=== PATIENT | female | born 1955 | race Caucasian/White ===

== ENCOUNTER 2018-12-10 12:39 | Inpatient (IN) | payer OTHER ==
[2018-12-09] MEDS: ALBUTEROL SULFATE 2.5 MG/3 ML NEBU. NEB SCH (21:00)
[~2018-12-10] VITALS: Ht 154.9 cm; Wt 140.6 kg
[2018-12-10 13:39] LABS: BASO # 0.1 x10^3/uL (0.0-0.2); BASO % 1 % (0-3); EOS # 0.3 x10^3/uL (0.0-0.7); EOS % 5 % (0-3); HEMATOCRIT 34.3 % (36.0-47.0); HEMOGLOBIN 10.8 g/dL (12.0-15.5); LYMPH # 2.6 x10^3/uL (1.0-4.8); LYMPH % 34 % (24-48); MEAN CORPUSCULAR HEMOGLOBIN 26 pg (25-35); MEAN CORPUSCULAR HGB CONC 32 g/dL (31-37); MEAN CORPUSCULAR VOLUME 81 fL (79-100); MONO % 13 % (0-9); NEUT # 3.7 x10^3uL (1.8-7.7); NEUT % 48 % (31-73); PLATELET COUNT 544 x10^3/uL (140-400); RED BLOOD COUNT 4.24 x10^6/uL (3.50-5.40); RED CELL DISTRIBUTION WIDTH 17.2 % (11.5-14.5); WHITE BLOOD COUNT 7.7 x10^3/uL (4.0-11.0)
[2018-12-10 13:55] LABS: ALBUMIN 3.4 g/dL (3.4-5.0); ALBUMIN/GLOBULIN RATIO 0.8 (1.0-1.7); CREATININE 1.8 mg/dL (0.6-1.0); GFR 28.4; MAGNESIUM 1.6 mg/dL (1.8-2.4); POTASSIUM 4.3 mmol/L (3.5-5.1); TOTAL BILIRUBIN 0.3 mg/dL (0.2-1.0); TOTAL PROTEIN 7.5 g/dL (6.4-8.2)
[2018-12-10 13:59] LABS: BILIRUBIN,URINE NEG (NEG); CLARITY,URINE HAZY; COLOR,URINE YELLOW; GLUCOSE,URINE NEG (NEG); NITRITE,URINE NEG (NEG); RBC,URINE 0 /HPF (0-2); UROBILINOGEN,URINE 0.2 mg/dL (0.2 mg/dL); WBC,URINE RARE /HPF (0-4)
[2018-12-10 14:00] LABS: BACTERIA,URINE 0 /HPF (0-FEW); SQUAMOUS EPITHELIAL CELL,UR MANY /LPF
[2018-12-10 14:01] LABS: HYALINE CASTS, URINE FEW /HPF
--- NOTE | 2018-12-10 14:21 | EKG ---
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
[2018-12-10] MEDS ORDERED: MAGNESIUM OXIDE 400 MG TABLET PO ONE (14:30)
--- NOTE | 2018-12-10 14:36 | PHYS DOC ---
Past History Past Medical History: A-Fib, Anxiety, CHF, COPD, Coagulopathy, Depression, DVT , GERD, Liver Disease, Pneumonia, Renal Failure, Other Past Surgical History: Appendectomy, Cholecystectomy, Tonsillectomy Alcohol Use: None Drug Use: None Adult General Chief Complaint Chief Complaint: PSYCH EVALUATION HPI HPI Patient is a 63 year old female with history of COPD on 4 L of home oxygen who brought in from her shelter in [place] for medical clearance for psychiatric admission. skilled nursing reported patient had behavior problem. Patient is alert and oriented and states she doesn't know why she is here. She states that she became anxious and slapped her face. Patient denies suicidal and homicidal ideation and hallucination. Review of Systems Review of Systems Constitutional: Denies fever or chills [] Eyes: Denies change in visual acuity, redness, or eye pain [] HENT: Denies nasal congestion or sore throat [] Respiratory: Chronic cough and shortness of breath on home oxygen Cardiovascular: No additional information not addressed in HPI [] GI: Denies abdominal pain, nausea, vomiting, bloody stools or diarrhea [] : Denies dysuria or hematuria [] Musculoskeletal: Denies back pain or joint pain [] Integument: Denies rash or skin lesions [] Neurologic: Denies headache, focal weakness or sensory changes [] Endocrine: Denies polyuria or polydipsia [] All other systems were reviewed and found to be within normal limits, except as documented in this note. Current Medications Current Medications Current Medications Medications (Trade) Dose Ordered Sig/[facility] Start Time Stop Time Status Last Admin Dose Admin Magnesium Oxide (Magnesium Oxide) 400 mg 1X ONCE 12/10/18 14:15 12/10/18 14:16 UNV Allergies Allergies Allergies Coded Allergies Type Severity Reaction Last Updated Verified Latex, Natural Rubber Allergy Unknown 12/10/18 Yes Tetanus Vaccines and Toxoid Allergy Unknown 12/10/18 Yes acetaminophen Allergy Unknown 12/10/18 Yes bee pollen Allergy Unknown 12/10/18 Yes cat dander Allergy Unknown 12/10/18 Yes cisapride Allergy Unknown 12/10/18 Yes ezetimibe Allergy Unknown 12/10/18 Yes fluconazole Allergy Unknown 12/10/18 Yes lidocaine Allergy Unknown 12/10/18 Yes pravastatin Allergy Unknown 12/10/18 Yes propoxyphene Allergy Unknown 12/10/18 Yes rosuvastatin Allergy Unknown 12/10/18 Yes simvastatin Allergy Unknown 12/10/18 Yes Physical Exam Physical Exam Constitutional: Well developed, well nourished, no acute distress, non-toxic appearance, morbidly obese. [] HENT: Normocephalic, atraumatic. Eyes: PERRLA, EOMI, conjunctiva normal, no discharge. [] Neck: Normal range of motion, no tenderness, supple, no stridor. [] Cardiovascular:Heart rate regular rhythm, no murmur [] Lungs & Thorax: Decrease of bilateral air movement and mild rhonchi Abdomen: Bowel sounds normal, soft, no tenderness, no masses, no pulsatile masses. [] Skin: Warm, dry, no erythema, no rash. [] Back: No tenderness, no CVA tenderness. [] Extremities: No tenderness, no cyanosis, no clubbing, ROM intact, bilateral lower extremity 2+ edema. [] Neurologic: Alert and oriented X 3, normal motor function, normal sensory function, no focal deficits noted. [] Psychologic: Affect normal, judgement normal, mood normal. [] Current Patient Data Vital Signs Vital Signs Date Time Temp Pulse Resp B/P (MAP) Pulse Ox O2 Delivery O2 Flow Rate FiO2 12/10/18 13:03 97.9 94 16 96 Room Air 5.0 Lab Results Laboratory Tests Test 12/10/18 13:27 12/10/18 13:35 White Blood Count 7.7 x10^3/uL (4.0-11.0) Red Blood Count 4.24 x10^6/uL (3.50-5.40) Hemoglobin 10.8 g/dL (12.0-15.5) L Hematocrit 34.3 % (36.0-47.0) L Mean Corpuscular Volume 81 fL (79-100) Mean Corpuscular Hemoglobin 26 pg (25-35) Mean Corpuscular Hemoglobin Concent 32 g/dL (31-37) Red Cell Distribution Width 17.2 % (11.5-14.5) H Platelet Count 544 x10^3/uL (140-400) H Neutrophils (%) (Auto) 48 % (31-73) Lymphocytes (%) (Auto) 34 % (24-48) Monocytes (%) (Auto) 13 % (0-9) H Eosinophils (%) (Auto) 5 % (0-3) H Basophils (%) (Auto) 1 % (0-3) Neutrophils # (Auto) 3.7 x10^3uL (1.8-7.7) Lymphocytes # (Auto) 2.6 x10^3/uL (1.0-4.8) Monocytes # (Auto) 1.0 x10^3/uL (0.0-1.1) Eosinophils # (Auto) 0.3 x10^3/uL (0.0-0.7) Basophils # (Auto) 0.1 x10^3/uL (0.0-0.2) Sodium Level 140 mmol/L (136-145) Potassium Level 4.3 mmol/L (3.5-5.1) Chloride Level 97 mmol/L (98-107) L Carbon Dioxide Level 36 mmol/L (21-32) H Anion Gap 7 (6-14) Blood Urea Nitrogen 28 mg/dL (7-20) H Creatinine 1.8 mg/dL (0.6-1.0) H Estimated GFR (Cockcroft-Gault) 28.4 BUN/Creatinine Ratio 16 (6-20) Glucose Level 188 mg/dL (70-99) H Calcium Level 10.0 mg/dL (8.5-10.1) Magnesium Level 1.6 mg/dL (1.8-2.4) L Total Bilirubin 0.3 mg/dL (0.2-1.0) Aspartate Amino Transferase (AST) 15 U/L (15-37) Alanine Aminotransferase (ALT) 18 U/L (14-59) Alkaline Phosphatase 71 U/L (46-116) Total Protein 7.5 g/dL (6.4-8.2) Albumin 3.4 g/dL (3.4-5.0) Albumin/Globulin Ratio 0.8 (1.0-1.7) L Urine Collection Type U cath Urine Color Yellow Urine Clarity Hazy Urine pH 5.0 Urine Specific [place] 1.020 Urine Protein Neg (NEG-TRACE) Urine Glucose (UA) Neg mg/dL (NEG) Urine Ketones (Stick) Trace mg/dL (NEG) Urine Blood Neg (NEG) Urine Nitrite Neg (NEG) Urine Bilirubin Neg (NEG) Urine Urobilinogen Dipstick 0.2 mg/dL (0.2 mg/dL) Urine Leukocyte Esterase Neg (NEG) Urine RBC 0 /HPF (0-2) Urine WBC Rare /HPF (0-4) Urine Squamous Epithelial Cells Many /LPF Urine Transitional Epithelial Cells Occ /LPF Urine Bacteria 0 /HPF (0-FEW) Urine Hyaline Casts Few /HPF EKG EKG EKG interpreted by me. EKG at 1320 showed normal sinus rhythm at rate of 93, left atrial abnormality, poor R-wave progress in anteroseptal leads, no acute ST and T-wave abnormalities. Radiology/Procedures Radiology/Procedures [] Course & Med Decision Making Course & Med Decision Making Pertinent Labs reviewed. (See chart for details) Evaluation of patient in ER showed 63-year-old female patient on 4 L of oxygen brought in for medical clearance for psychiatric admission. Patient had bilateral lower extremity edema without taking fluids. Patient had magnesium of 1.6 and treated with oral magnesium in ER. Patient also had mild elevation of BUN/creatinine with history of chronic renal failure. Patient had hemoglobin of 10.8 without previous labs to compare. Patient was medically cleared for psychiatric admission. Dragon Disclaimer Dragon Disclaimer This electronic medical record was generated, in whole or in part, using a voice recognition dictation system. Departure Departure: Impression: Primary Impression: Medical clearance for psychiatric admission Additional Impressions: Hypomagnesemia Renal insufficiency Anemia Morbid obesity Behavioral problem Disposition: 09 ADMITTED INPATIENT (at 1411 to senior behavioral unit) Condition: STABLE Referrals: JAGUAR ETIENNE MD (PCP) Problem Qualifiers Additional Impressions: Anemia Anemia type: unspecified type Qualified Codes: D64.9 - Anemia, unspecified ABILIO LAMAR MD Dec 10, 2018 14:36
--- NOTE | 2018-12-10 15:07 | NUR ---
Admission Note with Justification for Admission to [facility] Patient admitted to [facility] for protective oversight for emergency stabilization of acute psychiatric crisis. Pt admitted from: [facility] Mode of arrival: EMS Accompanied By: EMS Precipitating behaviors that initiated intake and admission: Paranoid-thinking people are stealing from her, paranoid about her medications, labile mood-angry, tearful, yelling and cursing at staff, self harming- hitting herself out of frustration. Description of failure of out patient attempts at stabilization in previous setting list behavior and medication trials: Attempts were made at therapy/counseling, BuSpar, Cymbalta Behaviors and assessment findings upon admission: Pt is needy and if things are not done her way pt gets upset, refuses to do the simplest of tasks for herself, complained of pain but reported that tramadol which was on her MAR was not effective, and requested Hydrocodone 7.5mg. Dr. Diaz called and order for Oxycodone 5mg q 4 hours obtained. Pt untidy, irritable, complaining, self-persecuting. Blames everyone at facility for her behaviors. Lungs sounds coarse and ronchi, BLLE 4+, Chest x-ray ordered. Plan: Admit for protective oversight for adjustment and stabilization of medications, behaviors and mood. Intense treatment regimen including groups, medication adjustments, therapy, consistent regimen for ADL's, self care, and sleep hygiene. Daily monitoring by Inpatient staff, Psychiatry, and Medical Physician.
[2018-12-10] MEDS ORDERED: ALBU2.5V5 NEB (15:52)
--- NOTE | 2018-12-10 16:06 | NUR ---
On 12/09/18, 11:56am, call placed to Ingrid at [employer] who confirmed that Lisa has in patient psychiatric benefits. Pre-authorization is required after Lisa admits to [facility] and is completed by calling [phone]. Call reference number is [id number].
[2018-12-10] MEDS ORDERED: GABA600T7 PO (16:49)
[2018-12-10] MEDS ORDERED: LOSA100T2 PO (16:49)
[2018-12-10] MEDS ORDERED: BUSP15TA PO (16:49)
[2018-12-10] MEDS ORDERED: INSU100V13 SQ (16:49)
[2018-12-10] MEDS ORDERED: CARV25TA PO (16:49)
[2018-12-10] MEDS ORDERED: DICL100G18 TP (16:49)
[2018-12-10] MEDS ORDERED: ROPI6TAB PO (16:49)
[2018-12-10] MEDS ORDERED: PANT40TA3 PO (16:49)
[2018-12-10] MEDS ORDERED: MILN50TA PO (16:49)
[2018-12-10] MEDS ORDERED: ONDA4TAB7 PO (16:49)
[2018-12-10] MEDS ORDERED: APIX5TAB5 PO (16:49)
[2018-12-10] MEDS ORDERED: CHOL100013 PO (16:49)
[2018-12-10] MEDS ORDERED: MULT-250 PO (16:49)
[2018-12-10] MEDS ORDERED: CLON0.1T PO (16:49)
[2018-12-10] MEDS ORDERED: NITR0.4T22 SL (16:49)
[2018-12-10] MEDS ORDERED: TRAM50TA PO (16:49)
[2018-12-10] MEDS ORDERED: GUAI-108 PO (16:49)
[2018-12-10] MEDS ORDERED: IPRA0.2S5 IH (16:49)
[2018-12-10] MEDS ORDERED: POLY17PO5 PO (16:49)
[2018-12-10] MEDS ORDERED: XOPENEX1.25 MG/3 IH (16:49)
[2018-12-10] MEDS ORDERED: FURO80TA72 PO (16:49)
[2018-12-10] MEDS ORDERED: DILT300T7 PO (16:49)
[2018-12-10] MEDS ORDERED: UMEC1DIS IH (16:49)
[2018-12-10] MEDS ORDERED: HYDR-2869 PO (16:49)
[2018-12-10] MEDS ORDERED: INSU100V31 SQ (16:49)
[2018-12-10] MEDS ORDERED: DULO30CA2 PO (16:49)
[2018-12-10] MEDS ORDERED: MAGNESIUM HYDROXIDE 2,400 MG/30 ML ORAL.SUSP. PO PRN (17:00)
[2018-12-10] MEDS ORDERED: NON FORMULARY ITEM (Levalbuterol Hcl (Xopenex) 1.25 MG) IH SCH (17:00)
[2018-12-10] MEDS ORDERED: IPRATROPIUM BROMIDE 0.5 MG/2.5 ML NEBU. IH SCH (17:00)
[2018-12-10] MEDS ORDERED: NON FORMULARY ITEM (Umeclidinium Brm/Vilanterol Tr (Anoro Ellipta 62.5-25 Mcg Inh) 1 EACH) IH SCH (17:00)
[2018-12-10] MEDS ORDERED: NITROGLYCERIN SUBLINGUAL 0.4 MG BOTTLE OF 25. SL PRN (17:00)
[2018-12-10] MEDS ORDERED: MAG HYDROX/AL HYDROX/SIMETH 30 ML ORAL.SUSP PO PRN (17:00)
[2018-12-10] MEDS ORDERED: ALBUTEROL SULFATE 2.5 MG/3 ML NEBU. NEB PRN (17:00)
[2018-12-10] MEDS: oxyCODONE IR 5 MG TABLET PO PRN (17:02)
--- NOTE | 2018-12-10 17:06 | RAD ---
Portable chest, 12/10/2018: HISTORY: Chest pain, shortness of breath No previous chest radiographs are available at this time for comparison purposes. There has been a previous median sternotomy. The heart is at the upper limits of normal in size. There is calcific plaquing the aorta. There are patchy and streaky parenchymal opacities in both lung bases on the lateral aspects of the mid chest bilaterally. The pattern suggests patchy pneumonitis and/or atelectasis. A component of scarring cannot be excluded on this single exam. No pleural fluid is seen. There is no evidence of pneumothorax. IMPRESSION: Mild patchy bilateral atelectasis/infiltrate. Electronically signed by: Heladio Valdovinos MD (12/10/2018 5:03 PM) [facility]
[2018-12-10] MEDS ORDERED: ONDANSETRON ODT 4 MG TAB.RAPDIS PO PRN (17:30)
--- NOTE | 2018-12-10 18:17 | NUR ---
Nursing Note: Chest X-Ray results received. Dr. Diaz informed, no orders received.
[2018-12-10] MEDS: CARVEDILOL 12.5 MG TABLET PO SCH (18:25)
[2018-12-10] MEDS: IPRATROPIUM BROMIDE 0.5 MG/2.5 ML NEBU. NEB SCH ×2 (20:00→21:00)
[2018-12-10] MEDS: ALBUTEROL SULFATE 2.5 MG/3 ML NEBU. NEB SCH (20:10)
--- NOTE | 2018-12-10 20:50 | NUR ---
Behavior Intervention Response and Plan: BIRP Note: Behavior: Assumed Care of patient, patient located in Day Room at shift change. Patient exhibited the following behavior Interactive, Attention Seeking, Anxious. Brief assessment on rounds of vital signs, medication needs, lab studies, and pain. Treatment plan problems . Intervention: Patient assessed and the following interventions initiated safety checks 15 Minute Checks Cognitive Assessment , Head to toe Assessment , Medications. Response: After interactions and interventions patient responded in the following manner, Interactive , Attention Seeking ,Anxious. Continue to assess behaviors and condition will continue to monitor throughout the shift as needed. Patient educated on ADL's, and hand hygiene. 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 Continue to assess patient for changes in above assessment. Monitor for medication needs, pain, and safety concerns. Hourly rounding performed to ensure safe environment.
[2018-12-10] MEDS: guaiFENesin DM 600/30MG 1 TAB TAB.ER.12H PO SCH (20:57)
[2018-12-10] MEDS: GABAPENTIN 300 MG CAPSULE. PO SCH (20:57)
[2018-12-10] MEDS: CHOLECALCIFEROL (VITAMIN D3) 1,000 UNIT TABLET PO SCH (20:57)
[2018-12-10] MEDS: busPIRone 15 MG TABLET. PO SCH (20:57)
[2018-12-10] MEDS: DICLOFENAC SODIUM 1% TOPICAL GEL 100GM TUBE. TP SCH (20:58)
[2018-12-10] MEDS: MILNACIPRAN 50 MG TABLET PO SCH (21:00)
[2018-12-10] MEDS: cloNIDine HCL 0.1 MG TABLET PO SCH (21:03)
[2018-12-10] MEDS: INSULIN GLARGINE 300 UNITS/3 ML INSULN.PEN. SQ SCH (21:03)
[2018-12-10] MEDS: BUDESONIDE 0.5 MG/2 ML NEBU NEB SCH (22:04)
--- NOTE | 2018-12-10 23:04 | PDOC ---
Exam Note: [place] Note: Please also refer to the separate dictated note~for this date of service dictated separately. Discussed the patient with Nursing staff reviewed the chart.~Reviewed interim history and current functioning. Reviewed vital signs,~ Labs/ Radiology~and current medications noted below. Continue current treatment with the changes noted in the dictated addendum note Assessment: Vital Signs: Vital Signs Date Time Temp Pulse Resp B/P (MAP) Pulse Ox O2 Delivery O2 Flow Rate FiO2 12/10/18 22:07 93 Nasal Cannula 2.0 12/10/18 21:08 93 150/81 12/10/18 17:02 18 12/10/18 13:03 97.9 Labs: Laboratory Tests Test 12/10/18 13:27 12/10/18 13:35 12/10/18 16:55 12/10/18 19:39 White Blood Count 7.7 x10^3/uL (4.0-11.0) Red Blood Count 4.24 x10^6/uL (3.50-5.40) Hemoglobin 10.8 g/dL (12.0-15.5) L Hematocrit 34.3 % (36.0-47.0) L Mean Corpuscular Volume 81 fL (79-100) Mean Corpuscular Hemoglobin 26 pg (25-35) Mean Corpuscular Hemoglobin Concent 32 g/dL (31-37) Red Cell Distribution Width 17.2 % (11.5-14.5) H Platelet Count 544 x10^3/uL (140-400) H Neutrophils (%) (Auto) 48 % (31-73) Lymphocytes (%) (Auto) 34 % (24-48) Monocytes (%) (Auto) 13 % (0-9) H Eosinophils (%) (Auto) 5 % (0-3) H Basophils (%) (Auto) 1 % (0-3) Neutrophils # (Auto) 3.7 x10^3uL (1.8-7.7) Lymphocytes # (Auto) 2.6 x10^3/uL (1.0-4.8) Monocytes # (Auto) 1.0 x10^3/uL (0.0-1.1) Eosinophils # (Auto) 0.3 x10^3/uL (0.0-0.7) Basophils # (Auto) 0.1 x10^3/uL (0.0-0.2) Sodium Level 140 mmol/L (136-145) Potassium Level 4.3 mmol/L (3.5-5.1) Chloride Level 97 mmol/L (98-107) L Carbon Dioxide Level 36 mmol/L (21-32) H Anion Gap 7 (6-14) Blood Urea Nitrogen 28 mg/dL (7-20) H Creatinine 1.8 mg/dL (0.6-1.0) H Estimated GFR (Cockcroft-Gault) 28.4 BUN/Creatinine Ratio 16 (6-20) Glucose Level 188 mg/dL (70-99) H Calcium Level 10.0 mg/dL (8.5-10.1) Magnesium Level 1.6 mg/dL (1.8-2.4) L Total Bilirubin 0.3 mg/dL (0.2-1.0) Aspartate Amino Transferase (AST) 15 U/L (15-37) Alanine Aminotransferase (ALT) 18 U/L (14-59) Alkaline Phosphatase 71 U/L (46-116) Total Protein 7.5 g/dL (6.4-8.2) Albumin 3.4 g/dL (3.4-5.0) Albumin/Globulin Ratio 0.8 (1.0-1.7) L Urine Collection Type U cath Urine Color Yellow Urine Clarity Hazy Urine pH 5.0 Urine Specific [place] 1.020 Urine Protein Neg (NEG-TRACE) Urine Glucose (UA) Neg mg/dL (NEG) Urine Ketones (Stick) Trace mg/dL (NEG) Urine Blood Neg (NEG) Urine Nitrite Neg (NEG) Urine Bilirubin Neg (NEG) Urine Urobilinogen Dipstick 0.2 mg/dL (0.2 mg/dL) Urine Leukocyte Esterase Neg (NEG) Urine RBC 0 /HPF (0-2) Urine WBC Rare /HPF (0-4) Urine Squamous Epithelial Cells Many /LPF Urine Transitional Epithelial Cells Occ /LPF Urine Bacteria 0 /HPF (0-FEW) Urine Hyaline Casts Few /HPF Glucose (Fingerstick) 163 mg/dL (70-99) H 229 mg/dL (70-99) H Current Medications: Meds: Current Medications Magnesium Oxide (Magnesium Oxide) 400 mg 1X ONCE PO Last administered on at 14:22; Start 12/10/18 at 14:30; Stop 12/10/18 at 14:32; Status DC Oxycodone HCl (Roxicodone) 5 mg PRN Q4HRS PRN PO PAIN Last administered on 12/10at 17:02; Start 12/10/18 at 16:30 Albuterol Sulfate (Ventolin) 2.5 mg PRN Q2HR PRN NEB SHORTNESS OF BREATH; Start 12/10/18 at 17:00 Clonidine HCl (Catapres) 0.1 mg BID PO Last administered on 12/10/18at 21:03; Start 12/10/18 at 21:00 Diclofenac Sodium (Voltaren) 100 popeye TID TP ; Start 12/10/18 at 21:00 Guaifenesin (MUCINEX ER with DM) 1 tab BID PO Last administered on 12/10/18at 20 :57; Start 12/10/18 at 21:00 Ipratropium [place] (Atrovent) 0.2 mg [id number] IH ; Start 12/10/18 at 17:00; Stop 12/10/18 at 17:29; Status DC Milnacipran HCl (Savella) 100 mg BID PO ; Start 12/10/18 at 21:00 Nitroglycerin (Nitrostat) 0.4 mg PRN Q5MIN PRN SL CHEST PAIN; Start 12/10/18 at 17:00 Tramadol HCl (Ultram) 50 mg PRN Q6HRS PRN PO PAIN; Start 12/10/18 at 17:00 Buspirone HCl (Buspar) 15 mg BID PO Last administered on 12/10/18at 20:57; Start 12/10/18 at 21:00 Carvedilol (Coreg) 12.5 mg BIDWMEALS PO Last administered on 12/10/18at 18:25; Start 12/10/18 at 17:00 Vitamin D (Vitamin D3) 1,000 unit BID PO Last administered on 12/10/18at 20:57; Start 12/10/18 at 21:00 Diltiazem HCl (Diltiazem 24hr Cd) 300 mg DAILY PO ; Start 12/11/18 at 09:00 Duloxetine HCl (Cymbalta) 30 mg DAILY PO ; Start 12/11/18 at 09:00 Furosemide (Lasix) 60 mg DAILY PO ; Start 12/11/18 at 09:00; Stop 12/11/18 at 09 :00; Status DC Gabapentin (Neurontin) 900 mg BID PO Last administered on 12/10/18at 20:57; Start 12/10/18 at 21:00 Hydralazine HCl (Apresoline) 50 mg Q8HRS PO Last administered on 12/10/18at 21: 08; Start 12/10/18 at 22:00 Insulin Human Lispro (HumaLOG) 18 units TIDBFRMEAL SQ ; Start 12/11/18 at 07:30 Insulin Glargine (Lantus) 32 units QHS SQ Last administered on 12/10/18at 21:03 ; Start 12/10/18 at 21:00 Non-Formulary Medication (Levalbuterol Hcl (Xopenex)) 1.25 mg QID IH ; Start at 17:00; Stop 12/10/18 at 17:28; Status DC Losartan Potassium (Cozaar) 100 mg DAILY PO ; Start 12/11/18 at 09:00; Stop at 09:00; Status DC Multivitamins/ Calcium (Thera-M Plus) 1 tab DAILY PO ; Start 12/11/18 at 09:00 Ondansetron HCl (Zofran Odt) 4 mg PRN Q8HRS PRN PO NAUSEA/VOMITING; Start 12/10 at 17:30 Pantoprazole Sodium (Protonix) 40 mg DAILYAC PO ; Start 12/11/18 at 07:30 Polyethylene Glycol (miraLAX) 17 gm DAILY PO ; Start 12/11/18 at 09:00 Non-Formulary Medication (Ropinirole Hcl (Requip Xl)) 6 mg DAILY PO ; Start at 09:00; Stop 12/11/18 at 09:00; Status DC Non-Formulary Medication (Umeclidinium Brm/Vilanterol Tr (Anoro Ellipta 62.5-25 Mcg Inh)) 1 each 1puff IH ; Start 12/10/18 at 17:00; Stop 12/10/18 at 17:30; Status DC Multi-Ingredient Ointment (Analgesic [place]) 1 popeye PRN QID PRN TP MUSCLE PAIN; Start 12/10/18 at 17:00 Al Hydroxide/Mg Hydroxide (Mylanta Plus Xs) 15 ml PRN AFTMEALHC PRN PO DYSPEPSIA; Start 12/10/18 at 17:00 Magnesium Hydroxide (Milk Of Magnesia) 2,400 mg PRN QHS PRN PO CONSTIPATION; Start 12/10/18 at 17:00 Albuterol Sulfate (Ventolin) 2.5 mg RTQID NEB Last administered on 12/10/18at 20 :10; Start 12/10/18 at 20:00 Budesonide (Pulmicort) 0.5 mg RTBID NEB Last administered on 12/10/18at 22:04; Start 12/10/18 at 20:00 Ipratropium [place] (Atrovent) 0.25 mg [id number] NEB Last administered on at 20:00; Start 12/10/18 at 20:00 Furosemide (Lasix) 40 mg DAILY PO ; Start 12/11/18 at 09:00 Non-Formulary Medication (Ropinirole Hcl (Requip Xl)) 6 mg QHS PO ; Start at 21:00; Status UNV Active Scripts Active Reported Zofran (Ondansetron Hcl) 4 Mg Tablet 4 Mg PO Q8HRS PRN Voltaren (Diclofenac Sodium) 100 Gm Gel..gram. 100 Gm TP TID Vitamin D (Cholecalciferol (Vitamin D3)) 1,000 Unit Capsule 1,000 Unit PO BID Tramadol Hcl (Tramadol HCl) 50 Mg Tablet 50 Mg PO PRN Q6HRS PRN Diltiazem 24Hr ER (Diltiazem HCl) 300 Mg Tab.er.24h 300 Mg PO DAILY [facility] Tablet (Multivits-Min/Fa/Lycopene/Lut) 1 Each Tablet 1 Each PO DAILY Savella (Milnacipran Hcl) 50 Mg Tablet 100 Mg PO BID Requip Xl (Ropinirole Hcl) 6 Mg Tab.er.24h 6 Mg PO DAILY Protonix (Pantoprazole Sodium) 40 Mg Tablet.dr 40 Mg PO DAILY06 Miralax (Polyethylene Glycol 3350) 17 Gm Powd.pack 17 Gm PO DAILY Novolog (Insulin Aspart) 100 Unit/1 Ml Vial 18 Unit SQ TIDBFRMEAL NITROGLYCERIN SubLingual (Nitroglycerin) 0.4 Mg Tab.subl 0.4 Mg SL PRN Q5MIN PRN Mucinex Dm Er 600-30 Mg Tablet (Guaifenesin/Dextromethorphan) 1 Each Tab.er.12h 1 Each PO BID Levemir (Insulin Detemir) 100 Unit/1 Ml Vial 32 Unit SQ QHS Xopenex (Levalbuterol Hcl) 1.25 Mg/3 Ml Vial.neb 1.25 Mg IH QID Lasix (Furosemide) 80 Mg Tablet 60 Mg PO DAILY Ipratropium [place] 0.2 Mg/1 Ml Solution 0.2 Mg IH [id number] Hydralazine Hcl 50 Mg Tablet 50 Mg PO Q8HRS Gabapentin 600 Mg Tablet 900 Mg PO BID Cymbalta (Duloxetine Hcl) 30 Mg Capsule.dr 30 Mg PO DAILY Cozaar (Losartan Potassium) 100 Mg Tablet 100 Mg PO DAILY Coreg (Carvedilol) 25 Mg Tablet 12.5 Mg PO BIDWMEALS Clonidine Hcl 0.1 Mg Tablet 0.1 Mg PO BID Buspirone Hcl 15 Mg Tablet 15 Mg PO BID Eliquis (Apixaban) 5 Mg Tab.ds.pk 5 Mg PO BID Anoro Ellipta 62.5-25 Mcg Inh (Umeclidinium Brm/Vilanterol Tr) 1 Each Disk.w.dev 1 Each IH 1PUFF Albuterol Sulfate Neb Soln (Albuterol Sulfate) 2.5 Mg/3 Ml Vial.neb 2.5 Mg NEB Q2HR PRN I have reviewed the current psychotropics carefully including drug interactions. Risk benefit ratio favors no change other than as noted in my dictated progress note. Diagnosis: Problems: (1) Hypomagnesemia (2) Morbid obesity (3) Anemia (4) Renal insufficiency (5) Behavioral problem (6) Medical clearance for psychiatric admission (7) Anxiety disorder (8) Impulse control disorder (9) Major depressive disorder, recurrent episode YULIA DAN MD Dec 10, 2018 23:04
[2018-12-10 23:51] VITALS: BP 150/81
[2018-12-11 05:29] VITALS: BP 126/74
[2018-12-11] MEDS: IPRATROPIUM BROMIDE 0.5 MG/2.5 ML NEBU. NEB SCH ×4 (06:04→21:00)
[2018-12-11] MEDS: ALBUTEROL SULFATE 2.5 MG/3 ML NEBU. NEB SCH ×4 (06:05→21:55)
[2018-12-11] MEDS: BUDESONIDE 0.5 MG/2 ML NEBU NEB SCH ×3 (06:05→22:00)
[2018-12-11 06:07] LABS: HEMOGLOBIN A1C 9.1 % (4.8-5.6)
[2018-12-11 07:54] LABS: CALCIUM 9.8 mg/dL (8.5-10.1); CREATININE 1.5 mg/dL (0.6-1.0); GFR 35.1
[2018-12-11] MEDS: GABAPENTIN 300 MG CAPSULE. PO SCH ×2 (08:14→19:36)
[2018-12-11] MEDS: guaiFENesin DM 600/30MG 1 TAB TAB.ER.12H PO SCH ×2 (08:14→19:27)
[2018-12-11] MEDS: busPIRone 15 MG TABLET. PO SCH ×2 (08:14→19:28)
[2018-12-11] MEDS: CHOLECALCIFEROL (VITAMIN D3) 1,000 UNIT TABLET PO SCH ×2 (08:14→19:28)
[2018-12-11] MEDS: CARVEDILOL 12.5 MG TABLET PO SCH ×2 (08:15→17:19)
[2018-12-11] MEDS: PANTOPRAZOLE 40 MG TABLET. PO SCH (08:21)
[2018-12-11] MEDS: cloNIDine HCL 0.1 MG TABLET PO SCH ×2 (08:21→19:28)
[2018-12-11] MEDS: MULTIVITAMIN with MINERAL TABLET. PO SCH (08:22)
[2018-12-11] MEDS: DULoxetine HCL 30 MG CAPSULE.DR PO SCH (08:22)
[2018-12-11] MEDS: FUROSEMIDE 40 MG TABLET PO SCH (08:22)
[2018-12-11] MEDS: POLYETHYLENE GLYCOL 3350 17 GM PACKET. PO SCH (08:22)
[2018-12-11] MEDS: INSULIN LISPRO 300 UNITS/3 ML INSULN.PEN. SQ SCH ×3 (08:23→17:20)
[2018-12-11] MEDS ORDERED: FUROSEMIDE 20 MG TABLET PO SCH (09:00)
[2018-12-11] MEDS: MILNACIPRAN 50 MG TABLET PO SCH ×2 (09:00→19:35)
[2018-12-11] MEDS: DICLOFENAC SODIUM 1% TOPICAL GEL 100GM TUBE. TP SCH ×3 (09:00→19:40)
[2018-12-11] MEDS ORDERED: LOSARTAN 50 MG TABLET. PO SCH (09:00)
[2018-12-11] MEDS ORDERED: ROPINIROLE HCL 6 MG PO SCH ×2 (09:00→21:00)
--- NOTE | 2018-12-11 11:26 | NUR ---
Behavior Intervention Response and Plan: BIRP Note: Behavior: Assumed Care of patient, patient located in Day Room at shift change. Patient exhibited the following behavior Disorganized, Compulsive, Demanding. Brief assessment on rounds of vital signs, medication needs, lab studies, and pain. Treatment plan problems 1 & 2. Intervention: Patient assessed and the following interventions initiated safety checks 15 Minute Checks Cognitive Assessment , Head to toe Assessment , Medications. Response: After interactions and interventions patient responded in the following manner, Calm , Compulsive ,Compliant. Continue to assess behaviors and condition will continue to monitor throughout the shift as needed. Patient educated on ADL's, and hand hygiene. Plan: Continue to monitor Master Treatment Plan for patient's progress toward short term goals of Medication Compliance, No harm To self/ others, snf goals to return to previous living setting vs placement. Continue to assess patient for changes in above assessment. Monitor for medication needs, pain, and safety concerns. Hourly rounding performed to ensure safe environment.
[2018-12-11 13:15] LABS: THYROID STIM HORMONE (TSH) 0.554 uIU/mL (0.358-3.740)
[2018-12-11] MEDS: traMADol 50 MG TABLET PO PRN (13:34)
[2018-12-11] MEDS: oxyCODONE IR 5 MG TABLET PO PRN ×2 (14:00→22:44)
[2018-12-11 16:19] VITALS: BP 127/78
--- NOTE | 2018-12-11 17:00 | HP ---
ADMIT DATE: 12/10/2018 I met with the patient evening of 12/10/2018 for this evaluation. IDENTIFYING DATA: The patient is a 63-year-old female referred to us from [facility] by Dr. Sepulveda, her primary care physician, on account of increasing paranoia, hitting on herself, screaming and cursing staff. She was paranoid about her medications and not getting them at all. She is angry, tearful with marked mood lability, thinks people are stealing from her. She is quite psychotic and has failed outpatient psychiatric interventions and treatment of Cymbalta and BuSpar amongst other psychotropics. She is referred for inpatient psychiatric stabilization. CHIEF COMPLAINT: "I don't do those things." HISTORY OF PRESENT ILLNESS: The patient has a history of mood disorder, major depressive disorder versus bipolar disorder, unspecified. She has been residing at the above facility for some time, but more recently behaviors have been out of control and unmanageable as noted above. There have been vague suicidal statements. She has failed outpatient psychiatric interventions resulting in this referral. PAST PSYCHIATRIC HISTORY: Positive for anxiety, depression, mood lability. PAST MEDICAL HISTORY: Fairly extensive for positive asthma, coronary artery disease, CHF, coronary artery disease status post coronary artery bypass graft, degenerative disk disease, diabetes mellitus, diabetic nephropathy, diverticulosis, hyperlipidemia, fibromyalgia, GERD, hearing loss, hemorrhoids, hypertension, long-term use of anticoagulants, morbid obesity, history of Mycobacterium pulmonary infection, osteoarthritis, obstructive sleep apnea, atrial fibrillation, chronic pain, restless leg syndrome, skin cancer, statin intolerance, tinnitus, tobacco abuse. ALLERGIES: LATEX, BEE POLLEN, CRESTOR, EZETIMIBE, SIMVASTATIN, LIDOCAINE, PRAVACHOL, PROPULSID, TETANUS TOXOID, DIFLUCAN. CODE STATUS: Full code. ACCU-CHEKS: Before meals and at bedtime. DIET: Heart healthy honey thickened mechanical soft. Takes medications whole, ambulates in wheelchair, 1 person assist in transfer. CURRENT PSYCHOTROPICS: BuSpar 15 mg b.i.d., Cymbalta 30 mg a day, gabapentin 900 mg b.i.d. FAMILY HISTORY: Noncontributory. SOCIAL HISTORY: No history of alcohol, drug abuse, physical, sexual or elder abuse. She is not known to be a perpetrator. MENTAL STATUS EXAMINATION: The patient was seen individually evening of 12/10/2018. She is in her wheelchair, anxious, restless, somewhat hyperverbal. Speech coherent, rapid at times. Abstraction fair, computation impaired, language function intact, attention span short. Mood and affect remain somewhat labile, anxious, minimizes most circumstances prompting admission. No active suicidal or homicidal ideation. LABORATORY DATA: Reviewed. IMPRESSION: Major depressive disorder, recurrent versus bipolar 1 disorder, mixed with psychotic features; anxiety disorder, unspecified; impulse control disorder, unspecified. Rest as above. PLAN: Admit to geropsychiatry unit at [facility]. I will see the patient daily individually from a psychiatric standpoint, medical followup with Dr. Diaz. Continue the patient on her current psychotropics, observe baseline, then adjust as clinically indicated. If symptoms of bipolar disorder are confirmed, we will add Depakote as a mood stabilizer or Lamictal. May use atypical antipsychotics only if absolutely necessary. MAN Yuridia DAN MD DR: HEATHER/kika JOB#: [id number] / [id number]
[2018-12-11] MEDS: INSULIN GLARGINE 300 UNITS/3 ML INSULN.PEN. SQ SCH (19:37)
[2018-12-11] MEDS: CHOLECALCIFEROL (VITAMIN D3) 50,000 UNIT CAPSULE PO SCH (21:26)
--- NOTE | 2018-12-11 22:37 | CONS ---
DATE OF CONSULTATION: 12/11/2018 REASON FOR CONSULTATION: Medical management. HISTORY OF PRESENT PLAN: The patient is a 63-year-old female patient who is currently a resident at [facility] in [place], who was admitted on account of being paranoid, hitting herself, screaming, cursing at staff, paranoid about medication, noncompliance, paranoid that people are stealing from her, angry, tearful and labile. All this in a background of mood disorder that is unspecified, was admitted here for inpatient psychiatric stabilization. PAST MEDICAL HISTORY: Significant for bronchial asthma, coronary artery disease, congestive heart failure, coronary artery bypass graft surgery, degenerative disk disease, type 2 diabetes with poorly controlled diabetic nephropathy, hyperlipidemia, fibromyalgia, gastroesophageal reflux disease, hearing loss, hemorrhoids, hypertension, morbid obesity, history of Mycobacterium fortuitum, pulmonary infection, paroxysmal atrial fibrillation, restless leg syndrome, skin cancer, statin intolerance, tobacco use. PAST PSYCHIATRIC HISTORY: Significant for anxiety and mood disorder. PAST SURGICAL HISTORY: Significant for coronary artery bypass graft surgery. FAMILY HISTORY: Unremarkable. SOCIAL HISTORY: She is a resident at [facility] of [place]. She has 5 children and many grandchildren. She quit smoking about 3 years ago and does not drink alcohol. 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 ALLERGIES: She is allergic to LATEX, NATURAL RUBBER, TETANUS VACCINE AND TOXOID, ACETAMINOPHEN, BEE POLLEN, CAT DANDER, CISAPRIDE, ZETIA, FLUCONAZOLE, LIDOCAINE, PRAVASTATIN. CODE STATUS: Full. MEDICATIONS: She is currently on following medications: She is on ipratropium bromide by nebulized inhaler 4 times a day, Anoro Ellipta 62.5/25 mcg 1 inhalation once a day, albuterol sulfate by nebulizer every 2 hours as needed, Xopenex 1.25 mg 4 times a day, apixaban 5 mg twice a day. She is on clonidine 0.1 mg twice a day, hydralazine 50 mg every 8 hours, nitroglycerin 0.4 mg sublingually every 5 minutes x 3, carvedilol 12.5 mg twice a day, diltiazem 300 mg p.o. daily, losartan potassium 100 mg p.o. daily, diclofenac sodium, Voltaren gel topically 3 times a day, tramadol 50 mg every 6 hours, gabapentin 900 mg twice a day, duloxetine 30 mg p.o. daily, buspirone 15 mg p.o. b.i.d., Requip 6 mg p.o. daily, Savella 100 mg p.o. b.i.d., furosemide 60 mg once a day. She is on Mucinex DM 1 tablet twice a day, polyethylene glycol 17 grams daily, ondansetron for Zofran 4 mg every 8 hours, Protonix 40 mg daily. She is on NovoLog 18 units before meals and Levemir insulin 32 units at bedtime, multivitamin with mineral once a day. PHYSICAL EXAMINATION: GENERAL: When I examined her, she was sitting comfortably in her chair, in no apparent respiratory distress, slightly pale, but no jaundice, cyanosis or thyromegaly. No jugular venous distention ____bilateral lower limb edema. VITAL SIGNS: Her heart rate was 86, blood pressure was 127/78, temperature was 97.9, respiratory rate was 19, and oxygen saturation was 93% on 4 liters of oxygen. HEAD, EYES, EARS, NOSE, AND THROAT: Showed normocephalic, atraumatic. NECK: Supple. HEART: Showed normal first and second heart sounds. No gallop, rub, or murmur. CHEST: Clear to auscultation. No crepitation or rhonchi. ABDOMEN: Distended, soft, nontender. NEUROLOGIC: She is awake, alert, responding appropriately at times. All her cranial nerves are intact. She moves extremities without difficulty, although she is mostly wheelchair bound. She said she is able to walk with a walker for short distances. LABORATORY DATA: Her lab work this morning showed a white cell count 7700, hemoglobin 11, hematocrit 34, MCV 81, and a platelet count of 544,000 with normal manual differential. Her chemistry showed a serum sodium 140, potassium 4.3, chloride 97, bicarbonate 36, anion gap of 7, BUN 28, creatinine 1.8, estimated GFR was 28 mL per minute. Her glucose 98, calcium was 10, magnesium was 1.6. Hemoglobin A1c was 9.1%. Her total bilirubin, AST, ALT, alkaline phosphatase were normal. Total protein was 7.5, albumin 3.4. Serum triglycerides were 181, total cholesterol 243, LDL cholesterol 144, VLDL was ____, and HDL cholesterol was 63. The ratio was 3. TSH was 0.554. Her 25-hydroxy vitamin D was 24, which is low, total T4 and total T3 are normal. Her serum iron was 45, TIBC was high at 397 and iron saturation was 11% consistent with iron deficiency anemia. Her MCV actually slightly on the lower side. Her urinalysis showed the urine was yellow and hazy with a pH of 5, specific gravity of 1.020. The urine was negative for protein, glucose, trace of ketones, negative for blood, nitrite, and leukocyte esterase. There are rare rbc's, rare wbc's, and no bacteria. Her treponema pallidum antibody is nonreactive. She apparently has had chest x-ray, which showed that there has been a previous median sternotomy. The heart is at the upper limit of normal in size. There is calcific plaquing of the aorta. There are patchy and streaky parenchymal opacities in both lung bases on the lateral aspect of the mid chest bilaterally. The pattern suggests patchy pneumonitis or atelectasis. A component of scarring cannot be excluded in this single exam. There is no pleural fluid. There is no evidence of pneumothorax. ASSESSMENT AND PLAN: In summary, this is a 63-year-old female patient, resident at [facility] in [place], who was admitted on account of being paranoid, hitting herself, screaming, cursing at staff, paranoid about medication. She is noncompliant, paranoid that people are stealing from her, angry, tearful, labile. All this in a background of mood disorder that is unspecified. She was admitted to this unit for inpatient psychiatric stabilization. Medically, she has a multitude of medical problems including type 2 diabetes mellitus that is poorly controlled. Her hemoglobin A1c was 9.1%. She has diabetic nephropathy, hypertension, hyperlipidemia, gastroesophageal reflux disease, morbid obesity, obstructive sleep apnea, paroxysmal atrial fibrillation, chronic pain syndrome, restless leg syndrome. Her vital signs seemed to be generally fairly controlled and within acceptable range. Her lab work showed that she has hypochromic microcytic anemia with iron studies consistent with iron deficiency anemia. Her serum iron, total iron binding capacity, and iron saturation are all consistent with that. She has 25-hydroxyvitamin D consistent with the hypovitaminosis. We will start her on cholecalciferol for supplement. Other than that, I will obviously continue with all her medication as such. We will follow all her closely. We might have to adjust her insulin, both NovoLog and Levemir. She has also what seems to have obstructive sleep apnea and probably chronic hypoxic hypercapnic respiratory failure. I might consider doing blood gases if there is any altered mental status. Her bicarbonate is already at 36 indicating at least mild retention of carbon dioxide. Thank you, Dr. Leon for allowing me to participate in the care of this patient. EDUARDA العلي MD DR: DARLENE/kika JOB#: [id number] / [id number]
--- NOTE | 2018-12-11 22:41 | PDOC ---
Exam Note: Iban Note: Please also refer to the separate dictated note~for this date of service dictated separately.~Patient seen individually. Discussed the patient with Nursing staff reviewed the chart.~Reviewed interim history and current functioning. Reviewed vital signs,~Labs/ Radiology~and current medications noted below. Continue current treatment with the changes noted in the dictated addendum note Assessment: Vital Signs: Vital Signs Date Time Temp Pulse Resp B/P (MAP) Pulse Ox O2 Delivery O2 Flow Rate FiO2 12/11/18 21:59 97 Nasal Cannula 4.0 12/11/18 19:28 86 127/78 12/11/18 16:19 97.9 19 I&O Intake and Output 12/11/18 06:59 Intake Total 120 ml Balance 120 ml Intake Oral 120 ml # Voids 1 Labs: Laboratory Tests Test 12/11/18 07:19 12/11/18 07:43 12/11/18 11:49 12/11/18 16:44 Sodium Level 139 mmol/L (136-145) Potassium Level 4.0 mmol/L (3.5-5.1) Chloride Level 98 mmol/L (98-107) Carbon Dioxide Level 36 mmol/L (21-32) H Anion Gap 5 (6-14) L Blood Urea Nitrogen 30 mg/dL (7-20) H Creatinine 1.5 mg/dL (0.6-1.0) H Estimated GFR (Cockcroft-Gault) 35.1 Glucose Level 193 mg/dL (70-99) H Calcium Level 9.8 mg/dL (8.5-10.1) Magnesium Level 1.9 mg/dL (1.8-2.4) Glucose (Fingerstick) 186 mg/dL (70-99) H 210 mg/dL (70-99) H 115 mg/dL (70-99) H Test 12/11/18 19:33 Glucose (Fingerstick) 141 mg/dL (70-99) H Current Medications: Meds: Current Medications Magnesium Oxide (Magnesium Oxide) 400 mg 1X ONCE PO Last administered on at 14:22; Start 12/10/18 at 14:30; Stop 12/10/18 at 14:32; Status DC Oxycodone HCl (Roxicodone) 5 mg PRN Q4HRS PRN PO PAIN Last administered on 12/11 14:00; Start 12/10/18 at 16:30 Albuterol Sulfate (Ventolin) 2.5 mg PRN Q2HR PRN NEB SHORTNESS OF BREATH; Start 12/10/18 at 17:00 Clonidine HCl (Catapres) 0.1 mg BID PO Last administered on 12/11/18 19:28; Start 12/10/18 at 21:00 Diclofenac Sodium (Voltaren) 100 popeye TID TP Last administered on 12/11/18 19: 40; Start 12/10/18 at 21:00 Guaifenesin (MUCINEX ER with DM) 1 tab BID PO Last administered on 12/11/18 19 :27; Start 12/10/18 at 21:00 Ipratropium Quail (Atrovent) 0.2 mg [id number] IH ; Start 12/10/18 at 17:00; Stop 12/10/18 at 17:29; Status DC Milnacipran HCl (Savella) 100 mg BID PO Last administered on 12/11/18at 19:35; Start 12/10/18 at 21:00 Nitroglycerin (Nitrostat) 0.4 mg PRN Q5MIN PRN SL CHEST PAIN; Start 12/10/18 at 17:00 Tramadol HCl (Ultram) 50 mg PRN Q6HRS PRN PO PAIN; Start 12/10/18 at 17:00 Buspirone HCl (Buspar) 15 mg BID PO Last administered on 12/11/18 19:28; Start 12/10/18 at 21:00 Carvedilol (Coreg) 12.5 mg BIDWMEALS PO Last administered on 12/11/18 17:19; Start 12/10/18 at 17:00 Vitamin D (Vitamin D3) 1,000 unit BID PO Last administered on 12/11/18 19:28; Start 12/10/18 at 21:00 Diltiazem HCl (Diltiazem 24hr Cd) 300 mg DAILY PO Last administered on 08:21; Start 12/11/18 at 09:00 Duloxetine HCl (Cymbalta) 30 mg DAILY PO Last administered on 12/11/18 08:22; Start 12/11/18 at 09:00 Furosemide (Lasix) 60 mg DAILY PO ; Start 12/11/18 at 09:00; Stop 12/11/18 at 09 :00; Status DC Gabapentin (Neurontin) 900 mg BID PO Last administered on 12/11/18at 19:36; Start 12/10/18 at 21:00 Hydralazine HCl (Apresoline) 50 mg Q8HRS PO Last administered on 12/11/18at 19: 28; Start 12/10/18 at 22:00 Insulin Human Lispro (HumaLOG) 18 units TIDBFRMEAL SQ Last administered on 12/11at 17:20; Start 12/11/18 at 07:30 Insulin Glargine (Lantus) 32 units QHS SQ Last administered on 12/11/18at 19:37 ; Start 12/10/18 at 21:00 Non-Formulary Medication (Levalbuterol Hcl (Xopenex)) 1.25 mg QID IH ; Start at 17:00; Stop 12/10/18 at 17:28; Status DC Losartan Potassium (Cozaar) 100 mg DAILY PO ; Start 12/11/18 at 09:00; Stop at 09:00; Status DC Multivitamins/ Calcium (Thera-M Plus) 1 tab DAILY PO Last administered on at 08:22; Start 12/11/18 at 09:00 Ondansetron HCl (Zofran Odt) 4 mg PRN Q8HRS PRN PO NAUSEA/VOMITING; Start 12/10 at 17:30 Pantoprazole Sodium (Protonix) 40 mg DAILYAC PO Last administered on 12/11/18at 08:21; Start 12/11/18 at 07:30 Polyethylene Glycol (miraLAX) 17 gm DAILY PO Last administered on 12/11/18at 08: 22; Start 12/11/18 at 09:00 Non-Formulary Medication (Ropinirole Hcl (Requip Xl)) 6 mg DAILY PO ; Start at 09:00; Stop 12/11/18 at 09:00; Status DC Non-Formulary Medication (Umeclidinium Brm/Vilanterol Tr (Anoro Ellipta 62.5-25 Mcg Inh)) 1 each 1puff IH ; Start 12/10/18 at 17:00; Stop 12/10/18 at 17:30; Status DC Multi-Ingredient Ointment (Analgesic Wayne) 1 popeye PRN QID PRN TP MUSCLE PAIN; Start 12/10/18 at 17:00 Al Hydroxide/Mg Hydroxide (Mylanta Plus Xs) 15 ml PRN AFTMEALHC PRN PO DYSPEPSIA; Start 12/10/18 at 17:00 Magnesium Hydroxide (Milk Of Magnesia) 2,400 mg PRN QHS PRN PO CONSTIPATION; Start 12/10/18 at 17:00 Albuterol Sulfate (Ventolin) 2.5 mg RTQID NEB Last administered on 12/11/18at 21 :55; Start 12/10/18 at 20:00 Budesonide (Pulmicort) 0.5 mg RTBID NEB Last administered on 12/11/18at 21:55; Start 12/10/18 at 20:00 Ipratropium Quail (Atrovent) 0.25 mg [id number] NEB Last administered on at 11:07; Start 12/10/18 at 20:00 Furosemide (Lasix) 40 mg DAILY PO Last administered on 12/11/18at 08:22; Start 12/11/18 at 09:00 Non-Formulary Medication (Ropinirole Hcl (Requip Xl)) 6 mg QHS PO ; Start at 21:00; Status UNV Quetiapine Fumarate (SEROquel) 12.5 mg 0900,1700 PO ; Start 12/12/18 at 09:00 Vitamin D (Vitamin D3) 50,000 unit WEEKLY PO Last administered on 12/11/18at 21: 26; Start 12/11/18 at 19:30 Active Scripts Active Reported Zofran (Ondansetron Hcl) 4 Mg Tablet 4 Mg PO Q8HRS PRN Voltaren (Diclofenac Sodium) 100 Gm Gel..gram. 100 Gm TP TID Vitamin D (Cholecalciferol (Vitamin D3)) 1,000 Unit Capsule 1,000 Unit PO BID Tramadol Hcl (Tramadol HCl) 50 Mg Tablet 50 Mg PO PRN Q6HRS PRN Diltiazem 24Hr ER (Diltiazem HCl) 300 Mg Tab.er.24h 300 Mg PO DAILY Sentry Senior Tablet (Multivits-Min/Fa/Lycopene/Lut) 1 Each Tablet 1 Each PO DAILY Savella (Milnacipran Hcl) 50 Mg Tablet 100 Mg PO BID Requip Xl (Ropinirole Hcl) 6 Mg Tab.er.24h 6 Mg PO DAILY Protonix (Pantoprazole Sodium) 40 Mg Tablet.dr 40 Mg PO DAILY06 Miralax (Polyethylene Glycol 3350) 17 Gm Powd.pack 17 Gm PO DAILY Novolog (Insulin Aspart) 100 Unit/1 Ml Vial 18 Unit SQ TIDBFRMEAL NITROGLYCERIN SubLingual (Nitroglycerin) 0.4 Mg Tab.subl 0.4 Mg SL PRN Q5MIN PRN Mucinex Dm Er 600-30 Mg Tablet (Guaifenesin/Dextromethorphan) 1 Each Tab.er.12h 1 Each PO BID Levemir (Insulin Detemir) 100 Unit/1 Ml Vial 32 Unit SQ QHS Xopenex (Levalbuterol Hcl) 1.25 Mg/3 Ml Vial.neb 1.25 Mg IH QID Lasix (Furosemide) 80 Mg Tablet 60 Mg PO DAILY Ipratropium Quail 0.2 Mg/1 Ml Solution 0.2 Mg IH [id number] Hydralazine Hcl 50 Mg Tablet 50 Mg PO Q8HRS Gabapentin 600 Mg Tablet 900 Mg PO BID Cymbalta (Duloxetine Hcl) 30 Mg Capsule.dr 30 Mg PO DAILY Cozaar (Losartan Potassium) 100 Mg Tablet 100 Mg PO DAILY Coreg (Carvedilol) 25 Mg Tablet 12.5 Mg PO BIDWMEALS Clonidine Hcl 0.1 Mg Tablet 0.1 Mg PO BID Buspirone Hcl 15 Mg Tablet 15 Mg PO BID Eliquis (Apixaban) 5 Mg Tab.ds.pk 5 Mg PO BID Anoro Ellipta 62.5-25 Mcg Inh (Umeclidinium Brm/Vilanterol Tr) 1 Each Disk.w.dev 1 Each IH 1PUFF Albuterol Sulfate Neb Soln (Albuterol Sulfate) 2.5 Mg/3 Ml Vial.neb 2.5 Mg NEB Q2HR PRN I have reviewed the current psychotropics carefully including drug interactions. Risk benefit ratio favors no change other than as noted in my dictated progress note. Diagnosis: Problems: (1) Hypomagnesemia (2) Morbid obesity (3) Anemia (4) Renal insufficiency (5) Behavioral problem (6) Medical clearance for psychiatric admission (7) Anxiety disorder (8) Impulse control disorder (9) Major depressive disorder, recurrent episode YULIA DAN MD Dec 11, 2018 22:41
[2018-12-11] MEDS: METHYL SALICYLATE/MENTHOL TOPICAL OINTMENT 29GM TUBE. TP PRN (22:43)
--- NOTE | 2018-12-11 23:53 | NUR ---
Nursing Note The patient was cooperative with her medications and assessment. The patient took her medications whole. The patient was hesitant to take a shower but did take her shower after discussing it with her nurse. The patient requested PRN Oxycodone and Analgesic balm @ HS. The patient is currently sleeping in her room.
[2018-12-12] MEDS: oxyCODONE IR 5 MG TABLET PO PRN ×3 (04:18→20:19)
[2018-12-12] MEDS: ALBUTEROL SULFATE 2.5 MG/3 ML NEBU. NEB SCH ×2 (05:44→09:58)
[2018-12-12 05:57] VITALS: BP 127/70
[2018-12-12] MEDS: DICLOFENAC SODIUM 1% TOPICAL GEL 100GM TUBE. TP SCH ×3 (09:00→20:10)
[2018-12-12] MEDS: MULTIVITAMIN with MINERAL TABLET. PO SCH (09:21)
[2018-12-12] MEDS: guaiFENesin DM 600/30MG 1 TAB TAB.ER.12H PO SCH ×2 (09:22→20:07)
[2018-12-12] MEDS: MILNACIPRAN 50 MG TABLET PO SCH ×2 (09:22→20:09)
[2018-12-12] MEDS: CHOLECALCIFEROL (VITAMIN D3) 1,000 UNIT TABLET PO SCH ×2 (09:22→20:07)
[2018-12-12] MEDS: busPIRone 15 MG TABLET. PO SCH ×2 (09:23→20:08)
[2018-12-12] MEDS: cloNIDine HCL 0.1 MG TABLET PO SCH ×2 (09:23→20:07)
[2018-12-12] MEDS: CARVEDILOL 12.5 MG TABLET PO SCH ×2 (09:23→17:55)
[2018-12-12] MEDS: PANTOPRAZOLE 40 MG TABLET. PO SCH (09:23)
[2018-12-12] MEDS: FUROSEMIDE 40 MG TABLET PO SCH (09:23)
[2018-12-12] MEDS: DULoxetine HCL 30 MG CAPSULE.DR PO SCH (09:23)
[2018-12-12] MEDS: POLYETHYLENE GLYCOL 3350 17 GM PACKET. PO SCH (09:24)
[2018-12-12] MEDS: traMADol 50 MG TABLET PO PRN (09:28)
[2018-12-12] MEDS: GABAPENTIN 300 MG CAPSULE. PO SCH ×2 (09:29→20:07)
[2018-12-12] MEDS: QUEtiapine 25 MG TABLET. PO SCH ×2 (09:29→17:55)
[2018-12-12] MEDS: IPRATROPIUM BROMIDE 0.5 MG/2.5 ML NEBU. NEB SCH (10:04)
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
[2018-12-12 16:04] VITALS: BP 121/76
--- NOTE | 2018-12-12 16:09 | NUR ---
Behavior Intervention Response and Plan: BIRP Note: Behavior: Assumed Care of patient, patient located in Day Room at shift change. Patient exhibited the following behavior Disorganized, Attention Seeking, Demanding. Brief assessment on rounds of vital signs, medication needs, lab studies, and pain. Treatment plan problems 1 & 2. Intervention: Patient assessed and the following interventions initiated safety checks 15 Minute Checks Cognitive Assessment , Head to toe Assessment , Medications. Response: After interactions and interventions patient responded in the following manner, Calm , Compulsive ,Compliant. Continue to assess behaviors and condition will continue to monitor throughout the shift as needed. Patient educated on ADL's, and hand hygiene. Plan: Continue to monitor Master Treatment Plan for patient's progress toward short term goals of Medication Compliance, No harm To self/ others, rectifying attendant goals to return to previous living setting vs placement. Continue to assess patient for changes in above assessment. Monitor for medication needs, pain, and safety concerns. Hourly rounding performed to ensure safe environment.
[2018-12-12] MEDS: IPRATRPIUM/ALBUTEROL 0.5/2.5MG 3 ML NEBU. NEB SCH ×3 (16:51→21:51)
[2018-12-12] MEDS: INSULIN LISPRO 300 UNITS/3 ML INSULN.PEN. SQ SCH ×3 (17:57→17:59)
[2018-12-12] MEDS: rOPINIRole 2 MG TABLET. PO SCH (20:07)
[2018-12-12] MEDS: INSULIN GLARGINE 300 UNITS/3 ML INSULN.PEN. SQ SCH (21:00)
--- NOTE | 2018-12-12 21:19 | PN ---
DATE: 12/11/2018 PSYCHIATRIC PROGRESS NOTE This late entry 12/11/2018 covers elements not covered in my initial note. SUBJECTIVE: I met with the patient in the evening. Overall, the patient has been somewhat needy, anxious, more so in the evening, disorganized, attention seeking per nursing report. REVIEW OF SYSTEMS: Ambulation impaired, in wheelchair. No CV, , pulmonary, eye, ENT system symptoms on review. She is hyperverbal as I met with her with many complaints about staff unit for seizures, anxious with marked mood lability. MENTAL STATUS EXAM: Oriented to herself and situation. Speech is coherent, rapid at times. Abstraction fair, computation impaired, language function intact, attention span short. Mood and affect remains labile. LABORATORY DATA: Reviewed. IMPRESSION: Unchanged from initial note. PLAN: We will go ahead and add Seroquel 12.5 mg 9 a.m., 5:00 p.m. Rest unchanged per initial note. MAN Yuridia DAN MD DR: HEATHER/kika JOB#: [id number] / [id number]
--- NOTE | 2018-12-12 22:44 | PDOC ---
Exam Note: Iban Note: Please also refer to the separate dictated note~for this date of service dictated separately.~Patient seen individually. Discussed the patient with Nursing staff reviewed the chart.~Reviewed interim history and current functioning. Reviewed vital signs,~Labs/ Radiology~and current medications noted below. Continue current treatment with the changes noted in the dictated addendum note Assessment: Vital Signs: Vital Signs Date Time Temp Pulse Resp B/P (MAP) Pulse Ox O2 Delivery O2 Flow Rate FiO2 12/12/18 21:53 98 Nasal Cannula 4.0 12/12/18 20:19 18 12/12/18 20:08 71 121/76 12/12/18 16:04 97.4 I&O Intake and Output 12/12/18 06:59 Intake Total 720 ml Balance 720 ml Intake Oral 720 ml # Bowel Movements 1 Labs: Laboratory Tests Test 12/12/18 07:24 12/12/18 11:30 12/12/18 16:46 12/12/18 19:32 Glucose (Fingerstick) 141 mg/dL (70-99) H 152 mg/dL (70-99) H 66 mg/dL (70-99) L 74 mg/dL (70-99) Current Medications: Meds: Current Medications Magnesium Oxide (Magnesium Oxide) 400 mg 1X ONCE PO Last administered on at 14:22; Start 12/10/18 at 14:30; Stop 12/10/18 at 14:32; Status DC Oxycodone HCl (Roxicodone) 5 mg PRN Q4HRS PRN PO PAIN Last administered on 12/12at 20:19; Start 12/10/18 at 16:30 Albuterol Sulfate (Ventolin) 2.5 mg PRN Q2HR PRN NEB SHORTNESS OF BREATH; Start 12/10/18 at 17:00; Stop 12/12/18 at 16:45; Status DC Clonidine HCl (Catapres) 0.1 mg BID PO Last administered on 12/12/18at 20:07; Start 12/10/18 at 21:00 Diclofenac Sodium (Voltaren) 100 popeye TID TP Last administered on 12/12/18at 20: 10; Start 12/10/18 at 21:00 Guaifenesin (MUCINEX ER with DM) 1 tab BID PO Last administered on 3/29/19at 20 :07; Start 12/10/18 at 21:00 Ipratropium [place] (Atrovent) 0.2 mg [id number] IH ; Start 12/10/18 at 17:00; Stop 12/10/18 at 17:29; Status DC Milnacipran HCl (Savella) 100 mg BID PO Last administered on 12/12/18 20:09; Start 12/10/18 at 21:00 Nitroglycerin (Nitrostat) 0.4 mg PRN Q5MIN PRN SL CHEST PAIN; Start 12/10/18 at 17:00 Tramadol HCl (Ultram) 50 mg PRN Q6HRS PRN PO PAIN Last administered on 09:28; Start 12/10/18 at 17:00 Buspirone HCl (Buspar) 15 mg BID PO Last administered on 12/12/18 20:08; Start 12/10/18 at 21:00 Carvedilol (Coreg) 12.5 mg BIDWMEALS PO Last administered on 12/12/18 17:55; Start 12/10/18 at 17:00 Vitamin D (Vitamin D3) 1,000 unit BID PO Last administered on 12/12/18 20:07; Start 12/10/18 at 21:00 Diltiazem HCl (Diltiazem 24hr Cd) 300 mg DAILY PO Last administered on 09:22; Start 12/11/18 at 09:00 Duloxetine HCl (Cymbalta) 30 mg DAILY PO Last administered on 12/12/18 09:23; Start 12/11/18 at 09:00 Furosemide (Lasix) 60 mg DAILY PO ; Start 12/11/18 at 09:00; Stop 12/11/18 at 09 :00; Status DC Gabapentin (Neurontin) 900 mg BID PO Last administered on 12/12/18 20:07; Start 12/10/18 at 21:00 Hydralazine HCl (Apresoline) 50 mg Q8HRS PO Last administered on 12/12/18 20: 08; Start 12/10/18 at 22:00 Insulin Human Lispro (HumaLOG) 18 units TIDBFRMEAL SQ Last administered on 12/12 17:59; Start 12/11/18 at 07:30 Insulin Glargine (Lantus) 32 units QHS SQ Last administered on 12/11/18at 19:37 ; Start 12/10/18 at 21:00 Non-Formulary Medication (Levalbuterol Hcl (Xopenex)) 1.25 mg QID IH ; Start at 17:00; Stop 12/10/18 at 17:28; Status DC Losartan Potassium (Cozaar) 100 mg DAILY PO ; Start 12/11/18 at 09:00; Stop at 09:00; Status DC Multivitamins/ Calcium (Thera-M Plus) 1 tab DAILY PO Last administered on at 09:21; Start 12/11/18 at 09:00 Ondansetron HCl (Zofran Odt) 4 mg PRN Q8HRS PRN PO NAUSEA/VOMITING; Start 12/10 at 17:30 Pantoprazole Sodium (Protonix) 40 mg DAILYAC PO Last administered on 12/12/18at 09:23; Start 12/11/18 at 07:30 Polyethylene Glycol (miraLAX) 17 gm DAILY PO Last administered on 12/12/18at 09: 24; Start 12/11/18 at 09:00 Non-Formulary Medication (Ropinirole Hcl (Requip Xl)) 6 mg DAILY PO ; Start at 09:00; Stop 12/11/18 at 09:00; Status DC Non-Formulary Medication (Umeclidinium Brm/Vilanterol Tr (Anoro Ellipta 62.5-25 Mcg Inh)) 1 each 1puff IH ; Start 12/10/18 at 17:00; Stop 12/10/18 at 17:30; Status DC Multi-Ingredient Ointment (Analgesic [place]) 1 popeye PRN QID PRN TP MUSCLE PAIN Last administered on 12/11/18at 22:43; Start 12/10/18 at 17:00 Al Hydroxide/Mg Hydroxide (Mylanta Plus Xs) 15 ml PRN AFTMEALHC PRN PO DYSPEPSIA; Start 12/10/18 at 17:00 Magnesium Hydroxide (Milk Of Magnesia) 2,400 mg PRN QHS PRN PO CONSTIPATION; Start 12/10/18 at 17:00 Albuterol Sulfate (Ventolin) 2.5 mg RTQID NEB Last administered on 12/12/18 09 :58; Start 12/10/18 at 20:00; Stop 12/12/18 at 11:08; Status DC Budesonide (Pulmicort) 0.5 mg RTBID NEB Last administered on 12/11/18at 22:00; Start 12/10/18 at 20:00; Stop 12/12/18 at 16:45; Status DC Ipratropium [place] (Atrovent) 0.25 mg [id number] NEB Last administered on at 10:04; Start 12/10/18 at 20:00; Stop 12/12/18 at 11:08; Status DC Furosemide (Lasix) 40 mg DAILY PO Last administered on 12/12/18 09:23; Start 12/11/18 at 09:00 Non-Formulary Medication (Ropinirole Hcl (Requip Xl)) 6 mg QHS PO ; Start at 21:00; Stop 12/12/18 at 18:00; Status DC Quetiapine Fumarate (SEROquel) 12.5 mg 0900,1700 PO Last administered on at 17:55; Start 12/12/18 at 09:00 Vitamin D (Vitamin D3) 50,000 unit WEEKLY PO Last administered on 12/11/18at 21: 26; Start 12/11/18 at 19:30 Albuterol/ Ipratropium (Duoneb) 3 ml RTQID NEB Last administered on 12/12/18at 21:51; Start 12/12/18 at 12:00 Ropinirole HCl (Requip) 2 mg TID PO Last administered on 12/12/18at 20:07; Start 12/12/18 at 21:00 Active Scripts Active Reported Zofran (Ondansetron Hcl) 4 Mg Tablet 4 Mg PO Q8HRS PRN Voltaren (Diclofenac Sodium) 100 Gm Gel..gram. 100 Gm TP TID Vitamin D (Cholecalciferol (Vitamin D3)) 1,000 Unit Capsule 1,000 Unit PO BID Tramadol Hcl (Tramadol HCl) 50 Mg Tablet 50 Mg PO PRN Q6HRS PRN Diltiazem 24Hr ER (Diltiazem HCl) 300 Mg Tab.er.24h 300 Mg PO DAILY Sentry Senior Tablet (Multivits-Min/Fa/Lycopene/Lut) 1 Each Tablet 1 Each PO DAILY Savella (Milnacipran Hcl) 50 Mg Tablet 100 Mg PO BID Requip Xl (Ropinirole Hcl) 6 Mg Tab.er.24h 6 Mg PO DAILY Protonix (Pantoprazole Sodium) 40 Mg Tablet.dr 40 Mg PO DAILY06 Miralax (Polyethylene Glycol 3350) 17 Gm Powd.pack 17 Gm PO DAILY Novolog (Insulin Aspart) 100 Unit/1 Ml Vial 18 Unit SQ TIDBFRMEAL NITROGLYCERIN SubLingual (Nitroglycerin) 0.4 Mg Tab.subl 0.4 Mg SL PRN Q5MIN PRN Mucinex Dm Er 600-30 Mg Tablet (Guaifenesin/Dextromethorphan) 1 Each Tab.er.12h 1 Each PO BID Levemir (Insulin Detemir) 100 Unit/1 Ml Vial 32 Unit SQ QHS Xopenex (Levalbuterol Hcl) 1.25 Mg/3 Ml Vial.neb 1.25 Mg IH QID Lasix (Furosemide) 80 Mg Tablet 60 Mg PO DAILY Ipratropium [place] 0.2 Mg/1 Ml Solution 0.2 Mg IH [id number] Hydralazine Hcl 50 Mg Tablet 50 Mg PO Q8HRS Gabapentin 600 Mg Tablet 900 Mg PO BID Cymbalta (Duloxetine Hcl) 30 Mg Capsule.dr 30 Mg PO DAILY Cozaar (Losartan Potassium) 100 Mg Tablet 100 Mg PO DAILY Coreg (Carvedilol) 25 Mg Tablet 12.5 Mg PO BIDWMEALS Clonidine Hcl 0.1 Mg Tablet 0.1 Mg PO BID Buspirone Hcl 15 Mg Tablet 15 Mg PO BID Eliquis (Apixaban) 5 Mg Tab.ds.pk 5 Mg PO BID Anoro Ellipta 62.5-25 Mcg Inh (Umeclidinium Brm/Vilanterol Tr) 1 Each Disk.w.dev 1 Each IH 1PUFF Albuterol Sulfate Neb Soln (Albuterol Sulfate) 2.5 Mg/3 Ml Vial.neb 2.5 Mg NEB Q2HR PRN I have reviewed the current psychotropics carefully including drug interactions. Risk benefit ratio favors no change other than as noted in my dictated progress note. Diagnosis: Problems: (1) Hypomagnesemia (2) Morbid obesity (3) Anemia (4) Renal insufficiency (5) Behavioral problem (6) Medical clearance for psychiatric admission (7) Anxiety disorder (8) Impulse control disorder (9) Major depressive disorder, recurrent episode YULIA DAN MD Dec 12, 2018 22:44
[2018-12-12] MEDS: METHYL SALICYLATE/MENTHOL TOPICAL OINTMENT 29GM TUBE. TP PRN (22:53)
--- NOTE | 2018-12-12 23:18 | NUR ---
Nursing Note The patient was located in the day room for her assessment and medications. The patient took her medications whole. The patient requested PRN Oxycodone with her HS Medications. The patient requested PRN Analgesic [place] @ HS. The patient is currently awake in bed in her room.
[2018-12-13] MEDS: IPRATRPIUM/ALBUTEROL 0.5/2.5MG 3 ML NEBU. NEB SCH ×4 (06:03→20:00)
[2018-12-13 06:06] VITALS: BP 134/76
[2018-12-13] MEDS: rOPINIRole 2 MG TABLET. PO SCH ×4 (08:14→20:16)
[2018-12-13] MEDS: FUROSEMIDE 40 MG TABLET PO SCH (08:14)
[2018-12-13] MEDS: POLYETHYLENE GLYCOL 3350 17 GM PACKET. PO SCH (08:14)
[2018-12-13] MEDS: QUEtiapine 25 MG TABLET. PO SCH ×3 (08:15→17:00)
[2018-12-13] MEDS: MULTIVITAMIN with MINERAL TABLET. PO SCH (08:15)
[2018-12-13] MEDS: PANTOPRAZOLE 40 MG TABLET. PO SCH (08:15)
[2018-12-13] MEDS: busPIRone 15 MG TABLET. PO SCH ×2 (08:15→20:17)
[2018-12-13] MEDS: DULoxetine HCL 30 MG CAPSULE.DR PO SCH (08:15)
[2018-12-13] MEDS: CHOLECALCIFEROL (VITAMIN D3) 1,000 UNIT TABLET PO SCH ×2 (08:16→20:16)
[2018-12-13] MEDS: CARVEDILOL 12.5 MG TABLET PO SCH ×2 (08:16→16:24)
[2018-12-13] MEDS: cloNIDine HCL 0.1 MG TABLET PO SCH ×2 (08:17→20:17)
[2018-12-13] MEDS: DICLOFENAC SODIUM 1% TOPICAL GEL 100GM TUBE. TP SCH ×3 (08:18→20:19)
[2018-12-13] MEDS: GABAPENTIN 300 MG CAPSULE. PO SCH ×2 (08:21→20:17)
[2018-12-13] MEDS: guaiFENesin DM 600/30MG 1 TAB TAB.ER.12H PO SCH ×2 (08:21→20:16)
[2018-12-13] MEDS: MILNACIPRAN 50 MG TABLET PO SCH ×2 (08:21→20:17)
[2018-12-13] MEDS: INSULIN LISPRO 300 UNITS/3 ML INSULN.PEN. SQ SCH ×3 (08:22→16:30)
[2018-12-13] MEDS: oxyCODONE IR 5 MG TABLET PO PRN ×2 (10:37→16:15)
--- NOTE | 2018-12-13 13:32 | NUR ---
Pt has been calm and cooperative; however, every time pt is approached, pt is very needy. Pt will ask for something, and then when she gets that, she will ask for more or for something else. This will happen several times in a row. Pt refused to get out of bed to go to breakfast. Pt was told that she needs to go to the dining for meals because that is part of the daily routine here. Pt verbalized understanding and went to the dining room for lunch without argument.
--- NOTE | 2018-12-13 14:45 | NUR ---
Attempted to meet and complete Activity Therapy Assessment; however, Pt. was sleeping at both 1020 and 1445
[2018-12-13 17:24] VITALS: BP 126/71
[2018-12-13] MEDS: INSULIN GLARGINE 300 UNITS/3 ML INSULN.PEN. SQ SCH (20:18)
--- NOTE | 2018-12-13 22:39 | PDOC ---
Exam Note: Iban Note: Please also refer to the separate dictated note~for this date of service dictated separately.~Patient seen individually. Discussed the patient with Nursing staff reviewed the chart.~Reviewed interim history and current functioning. Reviewed vital signs,~Labs/ Radiology~and current medications noted below. Continue current treatment with the changes noted in the dictated addendum note Assessment: Vital Signs: Vital Signs Date Time Temp Pulse Resp B/P (MAP) Pulse Ox O2 Delivery O2 Flow Rate FiO2 12/13/18 20:17 78 126/71 12/13/18 17:30 20 12/13/18 17:24 98.2 97 4.0 12/13/18 16:40 Nasal Cannula I&O Intake and Output 12/13/18 07:00 Intake Total 1080 ml Balance 1080 ml Intake Oral 1080 ml Labs: Laboratory Tests Test 12/13/18 07:40 12/13/18 11:48 12/13/18 16:43 12/13/18 19:25 Glucose (Fingerstick) 107 mg/dL (70-99) H 126 mg/dL (70-99) H 92 mg/dL (70-99) 157 mg/dL (70-99) H Current Medications: Meds: Current Medications Magnesium Oxide (Magnesium Oxide) 400 mg 1X ONCE PO Last administered on at 14:22; Start 12/10/18 at 14:30; Stop 12/10/18 at 14:32; Status DC Oxycodone HCl (Roxicodone) 5 mg PRN Q4HRS PRN PO PAIN Last administered on 12/13at 16:15; Start 12/10/18 at 16:30 Albuterol Sulfate (Ventolin) 2.5 mg PRN Q2HR PRN NEB SHORTNESS OF BREATH; Start 12/10/18 at 17:00; Stop 12/12/18 at 16:45; Status DC Clonidine HCl (Catapres) 0.1 mg BID PO Last administered on 12/13/18at 20:17; Start 12/10/18 at 21:00 Diclofenac Sodium (Voltaren) 100 popeye TID TP Last administered on 12/13/18 20: 19; Start 12/10/18 at 21:00 Guaifenesin (MUCINEX ER with DM) 1 tab BID PO Last administered on 3/30/19at 20 :16; Start 12/10/18 at 21:00 Ipratropium [place] (Atrovent) 0.2 mg [id number] IH ; Start 12/10/18 at 17:00; Stop 12/10/18 at 17:29; Status DC Milnacipran HCl (Savella) 100 mg BID PO Last administered on 12/13/18 20:17; Start 12/10/18 at 21:00 Nitroglycerin (Nitrostat) 0.4 mg PRN Q5MIN PRN SL CHEST PAIN; Start 12/10/18 at 17:00 Tramadol HCl (Ultram) 50 mg PRN Q6HRS PRN PO PAIN Last administered on 09:28; Start 12/10/18 at 17:00 Buspirone HCl (Buspar) 15 mg BID PO Last administered on 12/13/18 20:17; Start 12/10/18 at 21:00 Carvedilol (Coreg) 12.5 mg BIDWMEALS PO Last administered on 12/13/18 16:24; Start 12/10/18 at 17:00 Vitamin D (Vitamin D3) 1,000 unit BID PO Last administered on 12/13/18 20:16; Start 12/10/18 at 21:00 Diltiazem HCl (Diltiazem 24hr Cd) 300 mg DAILY PO Last administered on 08:16; Start 12/11/18 at 09:00 Duloxetine HCl (Cymbalta) 30 mg DAILY PO Last administered on 12/13/18 08:15; Start 12/11/18 at 09:00 Furosemide (Lasix) 60 mg DAILY PO ; Start 12/11/18 at 09:00; Stop 12/11/18 at 09 :00; Status DC Gabapentin (Neurontin) 900 mg BID PO Last administered on 12/13/18 20:17; Start 12/10/18 at 21:00 Hydralazine HCl (Apresoline) 50 mg Q8HRS PO Last administered on 12/13/18 20: 16; Start 12/10/18 at 22:00 Insulin Human Lispro (HumaLOG) 18 units TIDBFRMEAL SQ Last administered on 12/13at 12:56; Start 12/11/18 at 07:30 Insulin Glargine (Lantus) 32 units QHS SQ Last administered on 12/13/18at 20:18 ; Start 12/10/18 at 21:00 Non-Formulary Medication (Levalbuterol Hcl (Xopenex)) 1.25 mg QID IH ; Start at 17:00; Stop 12/10/18 at 17:28; Status DC Losartan Potassium (Cozaar) 100 mg DAILY PO ; Start 12/11/18 at 09:00; Stop at 09:00; Status DC Multivitamins/ Calcium (Thera-M Plus) 1 tab DAILY PO Last administered on at 08:15; Start 12/11/18 at 09:00 Ondansetron HCl (Zofran Odt) 4 mg PRN Q8HRS PRN PO NAUSEA/VOMITING; Start 12/10 at 17:30 Pantoprazole Sodium (Protonix) 40 mg DAILYAC PO Last administered on 12/13/18at 08:15; Start 12/11/18 at 07:30 Polyethylene Glycol (miraLAX) 17 gm DAILY PO Last administered on 12/13/18at 08: 14; Start 12/11/18 at 09:00 Non-Formulary Medication (Ropinirole Hcl (Requip Xl)) 6 mg DAILY PO ; Start at 09:00; Stop 12/11/18 at 09:00; Status DC Non-Formulary Medication (Umeclidinium Brm/Vilanterol Tr (Anoro Ellipta 62.5-25 Mcg Inh)) 1 each 1puff IH ; Start 12/10/18 at 17:00; Stop 12/10/18 at 17:30; Status DC Multi-Ingredient Ointment (Analgesic [place]) 1 popeye PRN QID PRN TP MUSCLE PAIN Last administered on 12/12/18at 22:53; Start 12/10/18 at 17:00 Al Hydroxide/Mg Hydroxide (Mylanta Plus Xs) 15 ml PRN AFTMEALHC PRN PO DYSPEPSIA; Start 12/10/18 at 17:00 Magnesium Hydroxide (Milk Of Magnesia) 2,400 mg PRN QHS PRN PO CONSTIPATION; Start 12/10/18 at 17:00 Albuterol Sulfate (Ventolin) 2.5 mg RTQID NEB Last administered on 12/12/18 09 :58; Start 12/10/18 at 20:00; Stop 12/12/18 at 11:08; Status DC Budesonide (Pulmicort) 0.5 mg RTBID NEB Last administered on 12/11/18at 22:00; Start 12/10/18 at 20:00; Stop 12/12/18 at 16:45; Status DC Ipratropium [place] (Atrovent) 0.25 mg [id number] NEB Last administered on 10:04; Start 12/10/18 at 20:00; Stop 12/12/18 at 11:08; Status DC Furosemide (Lasix) 40 mg DAILY PO Last administered on 12/13/18 08:14; Start 12/11/18 at 09:00 Non-Formulary Medication (Ropinirole Hcl (Requip Xl)) 6 mg QHS PO ; Start at 21:00; Stop 12/12/18 at 18:00; Status DC Quetiapine Fumarate (SEROquel) 12.5 mg 0900,1700 PO Last administered on 08:15; Start 12/12/18 at 09:00 Vitamin D (Vitamin D3) 50,000 unit WEEKLY PO Last administered on 12/11/18 21: 26; Start 12/11/18 at 19:30 Albuterol/ Ipratropium (Duoneb) 3 ml RTQID NEB Last administered on 12/13/18 16:40; Start 12/12/18 at 12:00 Ropinirole HCl (Requip) 2 mg TID PO Last administered on 12/13/18 20:16; Start 12/12/18 at 21:00 Active Scripts Active Reported Zofran (Ondansetron Hcl) 4 Mg Tablet 4 Mg PO Q8HRS PRN Voltaren (Diclofenac Sodium) 100 Gm Gel..gram. 100 Gm TP TID Vitamin D (Cholecalciferol (Vitamin D3)) 1,000 Unit Capsule 1,000 Unit PO BID Tramadol Hcl (Tramadol HCl) 50 Mg Tablet 50 Mg PO PRN Q6HRS PRN Diltiazem 24Hr ER (Diltiazem HCl) 300 Mg Tab.er.24h 300 Mg PO DAILY Sentry Senior Tablet (Multivits-Min/Fa/Lycopene/Lut) 1 Each Tablet 1 Each PO DAILY Savella (Milnacipran Hcl) 50 Mg Tablet 100 Mg PO BID Requip Xl (Ropinirole Hcl) 6 Mg Tab.er.24h 6 Mg PO DAILY Protonix (Pantoprazole Sodium) 40 Mg Tablet.dr 40 Mg PO DAILY06 Miralax (Polyethylene Glycol 3350) 17 Gm Powd.pack 17 Gm PO DAILY Novolog (Insulin Aspart) 100 Unit/1 Ml Vial 18 Unit SQ TIDBFRMEAL NITROGLYCERIN SubLingual (Nitroglycerin) 0.4 Mg Tab.subl 0.4 Mg SL PRN Q5MIN PRN Mucinex Dm Er 600-30 Mg Tablet (Guaifenesin/Dextromethorphan) 1 Each Tab.er.12h 1 Each PO BID Levemir (Insulin Detemir) 100 Unit/1 Ml Vial 32 Unit SQ QHS Xopenex (Levalbuterol Hcl) 1.25 Mg/3 Ml Vial.neb 1.25 Mg IH QID Lasix (Furosemide) 80 Mg Tablet 60 Mg PO DAILY Ipratropium [place] 0.2 Mg/1 Ml Solution 0.2 Mg IH [id number] Hydralazine Hcl 50 Mg Tablet 50 Mg PO Q8HRS Gabapentin 600 Mg Tablet 900 Mg PO BID Cymbalta (Duloxetine Hcl) 30 Mg Capsule.dr 30 Mg PO DAILY Cozaar (Losartan Potassium) 100 Mg Tablet 100 Mg PO DAILY Coreg (Carvedilol) 25 Mg Tablet 12.5 Mg PO BIDWMEALS Clonidine Hcl 0.1 Mg Tablet 0.1 Mg PO BID Buspirone Hcl 15 Mg Tablet 15 Mg PO BID Eliquis (Apixaban) 5 Mg Tab.ds.pk 5 Mg PO BID Anoro Ellipta 62.5-25 Mcg Inh (Umeclidinium Brm/Vilanterol Tr) 1 Each Disk.w.dev 1 Each IH 1PUFF Albuterol Sulfate Neb Soln (Albuterol Sulfate) 2.5 Mg/3 Ml Vial.neb 2.5 Mg NEB Q2HR PRN I have reviewed the current psychotropics carefully including drug interactions. Risk benefit ratio favors no change other than as noted in my dictated progress note. Diagnosis: Problems: (1) Hypomagnesemia (2) Morbid obesity (3) Anemia (4) Renal insufficiency (5) Behavioral problem (6) Medical clearance for psychiatric admission (7) Anxiety disorder (8) Impulse control disorder (9) Major depressive disorder, recurrent episode YULIA DAN MD Dec 13, 2018 22:39
--- NOTE | 2018-12-14 00:10 | NUR ---
Pt sitting calmly in dayroom this evening. Pt compliant with medications. Pt had numerous requests for staff (blanket, drink, then a different drink, etc) and numerous complaints (she was cold, didn't like the drink, didn't like her wheelchair, etc.) Compliant with shower.
[2018-12-14] MEDS: oxyCODONE IR 5 MG TABLET PO PRN ×2 (01:16→12:57)
[2018-12-14] MEDS: IPRATRPIUM/ALBUTEROL 0.5/2.5MG 3 ML NEBU. NEB SCH ×4 (05:06→20:00)
[2018-12-14] MEDS: traMADol 50 MG TABLET PO PRN (06:34)
[2018-12-14 06:35] VITALS: BP 148/75
[2018-12-14] MEDS: POLYETHYLENE GLYCOL 3350 17 GM PACKET. PO SCH (08:01)
[2018-12-14] MEDS: QUEtiapine 25 MG TABLET. PO SCH ×2 (08:02→17:57)
[2018-12-14] MEDS: busPIRone 15 MG TABLET. PO SCH ×2 (08:02→20:13)
[2018-12-14] MEDS: rOPINIRole 2 MG TABLET. PO SCH ×3 (08:02→20:14)
[2018-12-14] MEDS: PANTOPRAZOLE 40 MG TABLET. PO SCH (08:03)
[2018-12-14] MEDS: guaiFENesin DM 600/30MG 1 TAB TAB.ER.12H PO SCH ×2 (08:03→20:14)
[2018-12-14] MEDS: CARVEDILOL 12.5 MG TABLET PO SCH ×2 (08:03→17:57)
[2018-12-14] MEDS: FUROSEMIDE 40 MG TABLET PO SCH (08:03)
[2018-12-14] MEDS: cloNIDine HCL 0.1 MG TABLET PO SCH ×2 (08:04→20:14)
[2018-12-14] MEDS: CHOLECALCIFEROL (VITAMIN D3) 1,000 UNIT TABLET PO SCH ×2 (08:04→20:13)
[2018-12-14] MEDS: DULoxetine HCL 30 MG CAPSULE.DR PO SCH (08:04)
[2018-12-14] MEDS: MULTIVITAMIN with MINERAL TABLET. PO SCH (08:04)
[2018-12-14] MEDS: MILNACIPRAN 50 MG TABLET PO SCH ×2 (08:12→20:14)
[2018-12-14] MEDS: DICLOFENAC SODIUM 1% TOPICAL GEL 100GM TUBE. TP SCH ×4 (08:12→21:00)
[2018-12-14] MEDS: GABAPENTIN 300 MG CAPSULE. PO SCH ×2 (08:14→20:14)
[2018-12-14] MEDS: INSULIN LISPRO 300 UNITS/3 ML INSULN.PEN. SQ SCH ×3 (08:23→16:30)
--- NOTE | 2018-12-14 10:57 | NUR ---
Behavior Intervention Response and Plan: BIRP Note: Behavior: Assumed Care of patient, patient located in Dining Room at shift change. Patient exhibited the following behavior Interactive, Able to Focus on Task, Appropriate. Brief assessment on rounds of vital signs, medication needs, lab studies, and pain. Treatment plan problems . Intervention: Patient assessed and the following interventions initiated safety checks 15 Minute Checks Head to toe Assessment , Cognitive Assessment , Medications. Response: After interactions and interventions patient responded in the following manner, Anxious , Resistive ,Compliant. Continue to assess behaviors and condition will continue to monitor throughout the shift as needed. Patient educated on ADL's, and hand hygiene. Plan: Continue to monitor Master Treatment Plan for patient's progress toward short term goals of Improved Mood, Medication Compliance, manager intermediate goals to return to previous living setting vs placement. Continue to assess patient for changes in above assessment. Monitor for medication needs, pain, and safety concerns. Hourly rounding performed to ensure safe environment.
--- NOTE | 2018-12-14 15:15 | NUR ---
Attempted to meet and complete Activity Therapy Assessment; however, Pt. was sleeping at both 1345 and 1515
[2018-12-14 15:51] VITALS: BP 139/76
[2018-12-14] MEDS ORDERED: DEXTROSE ORAL GEL 15 GM TUBE. ONE ×2 (16:56→17:09)
[2018-12-14] MEDS ORDERED: DEXTROSE 50% 25 GM / 50ML DISP.SYRIN. IV ONE (17:09)
[2018-12-14] MEDS: INSULIN GLARGINE 300 UNITS/3 ML INSULN.PEN. SQ SCH (20:15)
--- NOTE | 2018-12-14 22:46 | PDOC ---
Exam Note: [place]ban Note: Please also refer to the separate dictated note~for this date of service dictated separately.~Patient seen individually. Discussed the patient with Nursing staff reviewed the chart.~Reviewed interim history and current functioning. Reviewed vital signs,~Labs/ Radiology~and current medications noted below. Continue current treatment with the changes noted in the dictated addendum note Assessment: Vital Signs: Vital Signs Date Time Temp Pulse Resp B/P (MAP) Pulse Ox O2 Delivery O2 Flow Rate FiO2 12/14/18 20:47 94 Nasal Cannula 4.0 12/14/18 20:14 98 139/76 12/14/18 15:51 98.7 19 I&O Intake and Output 12/14/18 07:00 Intake Total 600 ml Balance 600 ml Intake Oral 600 ml # Bowel Movements 1 Labs: Laboratory Tests Test 12/14/18 07:54 12/14/18 11:42 12/14/18 16:55 12/14/18 17:05 Glucose (Fingerstick) 156 mg/dL (70-99) H 66 mg/dL (70-99) L 42 mg/dL (70-99) L 41 mg/dL (70-99) L Test 12/14/18 17:13 12/14/18 17:23 12/14/18 19:32 12/14/18 21:44 Glucose (Fingerstick) 44 mg/dL (70-99) L 57 mg/dL (70-99) L 165 mg/dL (70-99) H 188 mg/dL (70-99) H Current Medications: Meds: Current Medications Magnesium Oxide (Magnesium Oxide) 400 mg 1X ONCE PO Last administered on at 14:22; Start 12/10/18 at 14:30; Stop 12/10/18 at 14:32; Status DC Oxycodone HCl (Roxicodone) 5 mg PRN Q4HRS PRN PO PAIN Last administered on 12/14at 12:57; Start 12/10/18 at 16:30 Albuterol Sulfate (Ventolin) 2.5 mg PRN Q2HR PRN NEB SHORTNESS OF BREATH; Start 12/10/18 at 17:00; Stop 12/12/18 at 16:45; Status DC Clonidine HCl (Catapres) 0.1 mg BID PO Last administered on 12/14/18at 20:14; Start 12/10/18 at 21:00 Diclofenac Sodium (Voltaren) 100 popeye TID TP Last administered on 12/14/18 20: 16; Start 12/10/18 at 21:00 Guaifenesin (MUCINEX ER with DM) 1 tab BID PO Last administered on 12/14/18 20 :14; Start 12/10/18 at 21:00 Ipratropium Byers (Atrovent) 0.2 mg [id number] IH ; Start 12/10/18 at 17:00; Stop 12/10/18 at 17:29; Status DC Milnacipran HCl (Savella) 100 mg BID PO Last administered on 12/14/18 20:14; Start 12/10/18 at 21:00 Nitroglycerin (Nitrostat) 0.4 mg PRN Q5MIN PRN SL CHEST PAIN; Start 12/10/18 at 17:00 Tramadol HCl (Ultram) 50 mg PRN Q6HRS PRN PO PAIN Last administered on 06:34; Start 12/10/18 at 17:00 Buspirone HCl (Buspar) 15 mg BID PO Last administered on 12/14/18 20:13; Start 12/10/18 at 21:00 Carvedilol (Coreg) 12.5 mg BIDWMEALS PO Last administered on 12/14/18 17:57; Start 12/10/18 at 17:00 Vitamin D (Vitamin D3) 1,000 unit BID PO Last administered on 12/14/18 20:13; Start 12/10/18 at 21:00 Diltiazem HCl (Diltiazem 24hr Cd) 300 mg DAILY PO Last administered on 08:02; Start 12/11/18 at 09:00 Duloxetine HCl (Cymbalta) 30 mg DAILY PO Last administered on 12/14/18 08:04; Start 12/11/18 at 09:00; Stop 12/14/18 at 18:43; Status DC Furosemide (Lasix) 60 mg DAILY PO ; Start 12/11/18 at 09:00; Stop 12/11/18 at 09 :00; Status DC Gabapentin (Neurontin) 900 mg BID PO Last administered on 12/14/18 20:14; Start 12/10/18 at 21:00 Hydralazine HCl (Apresoline) 50 mg Q8HRS PO Last administered on 12/14/18at 20: 13; Start 12/10/18 at 22:00 Insulin Human Lispro (HumaLOG) 18 units TIDBFRMEAL SQ Last administered on 12/14at 12:27; Start 12/11/18 at 07:30 Insulin Glargine (Lantus) 32 units QHS SQ Last administered on 12/14/18at 20:15 ; Start 12/10/18 at 21:00 Non-Formulary Medication (Levalbuterol Hcl (Xopenex)) 1.25 mg QID IH ; Start at 17:00; Stop 12/10/18 at 17:28; Status DC Losartan Potassium (Cozaar) 100 mg DAILY PO ; Start 12/11/18 at 09:00; Stop at 09:00; Status DC Multivitamins/ Calcium (Thera-M Plus) 1 tab DAILY PO Last administered on at 08:04; Start 12/11/18 at 09:00 Ondansetron HCl (Zofran Odt) 4 mg PRN Q8HRS PRN PO NAUSEA/VOMITING; Start 12/10 at 17:30 Pantoprazole Sodium (Protonix) 40 mg DAILYAC PO Last administered on 12/14/18at 08:03; Start 12/11/18 at 07:30 Polyethylene Glycol (miraLAX) 17 gm DAILY PO Last administered on 12/14/18at 08: 01; Start 12/11/18 at 09:00 Non-Formulary Medication (Ropinirole Hcl (Requip Xl)) 6 mg DAILY PO ; Start at 09:00; Stop 12/11/18 at 09:00; Status DC Non-Formulary Medication (Umeclidinium Brm/Vilanterol Tr (Anoro Ellipta 62.5-25 Mcg Inh)) 1 each 1puff IH ; Start 12/10/18 at 17:00; Stop 12/10/18 at 17:30; Status DC Multi-Ingredient Ointment (Analgesic [place]) 1 popeye PRN QID PRN TP MUSCLE PAIN Last administered on 12/12/18at 22:53; Start 12/10/18 at 17:00 Al Hydroxide/Mg Hydroxide (Mylanta Plus Xs) 15 ml PRN AFTMEALHC PRN PO DYSPEPSIA; Start 12/10/18 at 17:00 Magnesium Hydroxide (Milk Of Magnesia) 2,400 mg PRN QHS PRN PO CONSTIPATION; Start 12/10/18 at 17:00 Albuterol Sulfate (Ventolin) 2.5 mg RTQID NEB Last administered on 12/12/18at 09 :58; Start 12/10/18 at 20:00; Stop 12/12/18 at 11:08; Status DC Budesonide (Pulmicort) 0.5 mg RTBID NEB Last administered on 12/11/18at 22:00; Start 12/10/18 at 20:00; Stop 12/12/18 at 16:45; Status DC Ipratropium Byers (Atrovent) 0.25 mg [id number] NEB Last administered on at 10:04; Start 12/10/18 at 20:00; Stop 12/12/18 at 11:08; Status DC Furosemide (Lasix) 40 mg DAILY PO Last administered on 12/14/18at 08:03; Start 12/11/18 at 09:00 Non-Formulary Medication (Ropinirole Hcl (Requip Xl)) 6 mg QHS PO ; Start at 21:00; Stop 12/12/18 at 18:00; Status DC Quetiapine Fumarate (SEROquel) 12.5 mg 0900,1700 PO Last administered on at 17:57; Start 12/12/18 at 09:00; Stop 12/14/18 at 18:43; Status DC Vitamin D (Vitamin D3) 50,000 unit WEEKLY PO Last administered on 12/11/18at 21: 26; Start 12/11/18 at 19:30 Albuterol/ Ipratropium (Duoneb) 3 ml RTQID NEB Last administered on 12/14/18at 20:00; Start 12/12/18 at 12:00 Ropinirole HCl (Requip) 2 mg TID PO Last administered on 12/14/18at 20:14; Start 12/12/18 at 21:00 Glucose (Insta-Glucose) 15 gm STK-MED ONCE .ROUTE Last administered on at 16:56; Start 12/14/18 at 16:56; Stop 12/14/18 at 16:57; Status DC Dextrose 25 gm STK-MED ONCE IV ; Start 12/14/18 at 17:09; Stop 12/14/18 at 17:10 ; Status DC Glucose (Insta-Glucose) 15 gm STK-MED ONCE .ROUTE Last administered on at 17:09; Start 12/14/18 at 17:09; Stop 12/14/18 at 17:10; Status DC Duloxetine HCl (Cymbalta) 60 mg DAILY PO ; Start 12/15/18 at 09:00 Olanzapine (ZyPREXA ZYDIS) 2.5 mg PRN Q2HR PRN PO ANXIETY / AGITATION; Start at 18:45 Active Scripts Active Reported Zofran (Ondansetron Hcl) 4 Mg Tablet 4 Mg PO Q8HRS PRN Voltaren (Diclofenac Sodium) 100 Gm Gel..gram. 100 Gm TP TID Vitamin D (Cholecalciferol (Vitamin D3)) 1,000 Unit Capsule 1,000 Unit PO BID Tramadol Hcl (Tramadol HCl) 50 Mg Tablet 50 Mg PO PRN Q6HRS PRN Diltiazem 24Hr ER (Diltiazem HCl) 300 Mg Tab.er.24h 300 Mg PO DAILY [facility] [facility] Tablet (Multivits-Min/Fa/Lycopene/Lut) 1 Each Tablet 1 Each PO DAILY Savella (Milnacipran Hcl) 50 Mg Tablet 100 Mg PO BID Requip Xl (Ropinirole Hcl) 6 Mg Tab.er.24h 6 Mg PO DAILY Protonix (Pantoprazole Sodium) 40 Mg Tablet.dr 40 Mg PO DAILY06 Miralax (Polyethylene Glycol 3350) 17 Gm Powd.pack 17 Gm PO DAILY Novolog (Insulin Aspart) 100 Unit/1 Ml Vial 18 Unit SQ TIDBFRMEAL NITROGLYCERIN SubLingual (Nitroglycerin) 0.4 Mg Tab.subl 0.4 Mg SL PRN Q5MIN PRN Mucinex Dm Er 600-30 Mg Tablet (Guaifenesin/Dextromethorphan) 1 Each Tab.er.12h 1 Each PO BID Levemir (Insulin Detemir) 100 Unit/1 Ml Vial 32 Unit SQ QHS Xopenex (Levalbuterol Hcl) 1.25 Mg/3 Ml Vial.neb 1.25 Mg IH QID Lasix (Furosemide) 80 Mg Tablet 60 Mg PO DAILY Ipratropium Byers 0.2 Mg/1 Ml Solution 0.2 Mg IH [id number] Hydralazine Hcl 50 Mg Tablet 50 Mg PO Q8HRS Gabapentin 600 Mg Tablet 900 Mg PO BID Cymbalta (Duloxetine Hcl) 30 Mg Capsule.dr 30 Mg PO DAILY Cozaar (Losartan Potassium) 100 Mg Tablet 100 Mg PO DAILY Coreg (Carvedilol) 25 Mg Tablet 12.5 Mg PO BIDWMEALS Clonidine Hcl 0.1 Mg Tablet 0.1 Mg PO BID Buspirone Hcl 15 Mg Tablet 15 Mg PO BID Eliquis (Apixaban) 5 Mg Tab.ds.pk 5 Mg PO BID Anoro Ellipta 62.5-25 Mcg Inh (Umeclidinium Brm/Vilanterol Tr) 1 Each Disk.w.dev 1 Each IH 1PUFF Albuterol Sulfate Neb Soln (Albuterol Sulfate) 2.5 Mg/3 Ml Vial.neb 2.5 Mg NEB Q2HR PRN I have reviewed the current psychotropics carefully including drug interactions. Risk benefit ratio favors no change other than as noted in my dictated progress note. Diagnosis: Problems: (1) Hypomagnesemia (2) Morbid obesity (3) Anemia (4) Renal insufficiency (5) Behavioral problem (6) Medical clearance for psychiatric admission (7) Anxiety disorder (8) Impulse control disorder (9) Major depressive disorder, recurrent episode YULIA DAN MD Dec 14, 2018 22:46
--- NOTE | 2018-12-15 01:19 | NUR ---
Pt in bed at shift change. Pt compliant with whole medications, is needy and attention seeking at times. Pt has a wet, productive cough. Pt's O2 sats have been low at times throughout the night. RT breathing tx ordered x1. Labs and CXR ordered. Pt's HOB elevated, with 4L NC.
[2018-12-15] MEDS ORDERED: IPRATRPIUM/ALBUTEROL 0.5/2.5MG 3 ML NEBU. NEB ONE (01:30)
[2018-12-15 02:13] LABS: BASO % 1 % (0-3); EOS # 0.1 x10^3/uL (0.0-0.7); EOS % 2 % (0-3); HEMATOCRIT 30.9 % (36.0-47.0); HEMOGLOBIN 9.7 g/dL (12.0-15.5); LYMPH # 1.8 x10^3/uL (1.0-4.8); LYMPH % 35 % (24-48); MEAN CORPUSCULAR HEMOGLOBIN 26 pg (25-35); MEAN CORPUSCULAR HGB CONC 31 g/dL (31-37); MEAN CORPUSCULAR VOLUME 82 fL (79-100); MONO # 0.6 x10^3/uL (0.0-1.1); MONO % 12 % (0-9); NEUT # 2.6 x10^3uL (1.8-7.7); NEUT % 50 % (31-73); PLATELET COUNT 466 x10^3/uL (140-400); RED BLOOD COUNT 3.75 x10^6/uL (3.50-5.40); WHITE BLOOD COUNT 5.2 x10^3/uL (4.0-11.0)
[2018-12-15 02:25] LABS: ALBUMIN/GLOBULIN RATIO 0.8 (1.0-1.7); CALCIUM 9.3 mg/dL (8.5-10.1); CREATININE 1.1 mg/dL (0.6-1.0); GFR 50.2; POTASSIUM 3.5 mmol/L (3.5-5.1); TOTAL BILIRUBIN 0.2 mg/dL (0.2-1.0)
[2018-12-15] MEDS: oxyCODONE IR 5 MG TABLET PO PRN ×2 (03:25→13:36)
--- NOTE | 2018-12-15 03:57 | RAD ---
CHEST AP ONLY Clinical History: Shortness of breath, decreased o2 sats, chf, Asthma and COPD exacerbation Technique: AP view of the chest was obtained at 12/15/2018 2:22 AM. Comparison: December 10, 2018. Findings: The heart is moderately enlarged. Median sternotomy wires are again seen. The pulmonary vasculature is normal. There is linear opacities in the mid and lower lungs bilaterally. Impression: There is moderate cardiomegaly and bilateral infiltrates which could be CHF or pneumonia. No change from prior study. Electronically signed by: Chris Baptiste III, MD (12/15/2018 3:55 AM) [facility] [place]
[2018-12-15] MEDS: IPRATRPIUM/ALBUTEROL 0.5/2.5MG 3 ML NEBU. NEB SCH ×4 (05:56→20:02)
[2018-12-15 06:38] VITALS: BP 98/54
[2018-12-15] MEDS: INSULIN LISPRO 300 UNITS/3 ML INSULN.PEN. SQ SCH ×3 (07:30→16:30)
[2018-12-15] MEDS: CARVEDILOL 12.5 MG TABLET PO SCH ×2 (08:00→17:00)
[2018-12-15] MEDS: rOPINIRole 2 MG TABLET. PO SCH ×3 (08:25→19:48)
[2018-12-15] MEDS: POLYETHYLENE GLYCOL 3350 17 GM PACKET. PO SCH (08:25)
[2018-12-15] MEDS: CHOLECALCIFEROL (VITAMIN D3) 1,000 UNIT TABLET PO SCH ×2 (08:25→19:49)
[2018-12-15] MEDS: MULTIVITAMIN with MINERAL TABLET. PO SCH (08:26)
[2018-12-15] MEDS: busPIRone 15 MG TABLET. PO SCH ×2 (08:26→19:49)
[2018-12-15] MEDS: PANTOPRAZOLE 40 MG TABLET. PO SCH (08:26)
[2018-12-15] MEDS: FUROSEMIDE 40 MG TABLET PO SCH (08:27)
[2018-12-15] MEDS: guaiFENesin DM 600/30MG 1 TAB TAB.ER.12H PO SCH ×2 (08:27→19:49)
[2018-12-15] MEDS: cloNIDine HCL 0.1 MG TABLET PO SCH ×2 (08:28→19:49)
[2018-12-15] MEDS: GABAPENTIN 300 MG CAPSULE. PO SCH ×2 (08:30→19:50)
[2018-12-15] MEDS: MILNACIPRAN 50 MG TABLET PO SCH ×2 (08:30→19:50)
[2018-12-15] MEDS: DICLOFENAC SODIUM 1% TOPICAL GEL 100GM TUBE. TP SCH ×3 (08:30→19:51)
[2018-12-15] MEDS ORDERED: DULoxetine HCL 30 MG CAPSULE.DR PO SCH (09:00)
--- NOTE | 2018-12-15 10:00 | NUR ---
pt arguing with staff about meds she was taking. stated she didn't take requip except at night but told day nurse yesterday that she didn't take it all because it didn't work. Pt continually argumentative with staff about all aspects of care. Pt does not allow anyone else to elaborate on the rules place in the psychiatric unit. Pt called dtr a couple of different times to states aspects of care that she did not agree with. pt cannot carry on a two sided conversation.
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
--- NOTE | 2018-12-15 14:40 | NUR ---
After Pt's nurse's approval, FIRST OFFICER AND FLIGHT INSTRUCTOR gave Pt. a journal and felt tip pen with metal cap clip removed.
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
[2018-12-15 16:24] VITALS: BP 165/91
--- NOTE | 2018-12-15 17:00 | NUR ---
pt continually arguing about amount of fluids taken in for shift. Fluids documented by staff. pt refused to believe those calculations. when offered a choice between fluids pt continued to argue about the amount she had already received. pt perseverates on one aspect of her care and refuses to receive any input into the situation. Spoke with dtr on the phone and she stated she was disturbed about things her mother was telling her about her care. Spoke about specific rules regarding the unit , her fluid restriction, participation in therapy and taking all of her meds. Pt picks and choose what meds she will take including refusing the meds for her bipolar. pt wants to speak with SW. pt informed they would be here in am.
--- NOTE | 2018-12-15 17:11 | NUR ---
Behavior Intervention Response and Plan: BIRP Note: Behavior: Assumed Care of patient, patient located in Day Room at shift change. Patient exhibited the following behavior Disorganized, Attention Seeking, Demanding. Brief assessment on rounds of vital signs, medication needs, lab studies, and pain. Treatment plan problems 1 & 2. Intervention: Patient assessed and the following interventions initiated safety checks 15 Minute Checks Cognitive Assessment , Head to toe Assessment , Medications. Response: After interactions and interventions patient responded in the following manner, Calm , Compulsive ,Compliant. Continue to assess behaviors and condition will continue to monitor throughout the shift as needed. Patient educated on ADL's, and hand hygiene. Plan: Continue to monitor Master Treatment Plan for patient's progress toward short term goals of Medication Compliance, No harm To self/ others, termite treater goals to return to previous living setting vs placement. Continue to assess patient for changes in above assessment. Monitor for medication needs, pain, and safety concerns. Hourly rounding performed to ensure safe environment.
[2018-12-15] MEDS: INSULIN GLARGINE 300 UNITS/3 ML INSULN.PEN. SQ SCH (20:16)
--- NOTE | 2018-12-15 20:27 | PN ---
DATE: 12/12/2018 PSYCHIATRIC PROGRESS NOTE This late entry 12/12/2018 covers elements not covered in my initial note. SUBJECTIVE: I met with the patient in the evening. The patient slept just 3 hours previous night. She is noted to be somewhat needy, disorganized, attention seeking, resistive to medications, frequently wanting oxycodone, anxious with ongoing mood lability. REVIEW OF SYSTEMS: Ambulation impaired, in wheelchair. No CV, , pulmonary, eye, ENT system symptoms on review. She has vague somatic symptoms. MENTAL STATUS EXAM: Oriented reasonably. Speech coherent, rapid at times. Abstraction fair, computation impaired, language function intact, attention span short. Mood and affect remain somewhat anxious, labile. LABORATORY DATA: Reviewed. IMPRESSION: Unchanged from initial note. PLAN: Start Seroquel 12.5 mg 9 a.m., 5:00 p.m. Continue rest of psychotropics unchanged. Seroquel is to augment the Cymbalta and as a mood stabilizer. Maintain BuSpar 15 mg b.i.d. MAN Yuridia DAN MD DR: HEATHER/kika JOB#: [id number] / [id number]
--- NOTE | 2018-12-15 22:09 | PN ---
DATE: 12/13/2018 PSYCHIATRIC PROGRESS NOTE This late entry 12/13/2018 covers elements not covered in my initial note. SUBJECTIVE: I met with the patient in the evening. The patient slept 6 hours previous night. She remains anxious, restless, put herself on the floor, refused to 1700 Seroquel, manic, according to nursing staff "splitting staff." REVIEW OF SYSTEMS: Ambulation impaired, in wheelchair. No CV, , pulmonary, eye system symptoms on review. MENTAL STATUS EXAM: Oriented to herself and situation. Speech coherent, rapid at times. Abstraction fair, computation impaired, language function intact, attention span short. Mood and affect somewhat labile. LABORATORY DATA: Reviewed. IMPRESSION: Unchanged from initial note. PLAN: No change from initial note. MAN Yuridia DAN MD DR: HEATHER/kika JOB#: [id number] / [id number]
--- NOTE | 2018-12-15 22:10 | PN ---
DATE: 12/14/2018 PSYCHIATRIC PROGRESS NOTE This late entry 12/14/2018 covers elements not covered in my initial note. SUBJECTIVE: I met with the patient in the evening. The patient slept 7 hours previous night. She refused her morning Seroquel, very insistent as I met with her in the evening that she wants the Seroquel discontinued, feels that it worsens her mood, causes sedation. REVIEW OF SYSTEMS: Ambulation impaired, in wheelchair. No CV, , pulmonary, eye system symptoms on review. MENTAL STATUS EXAM: Oriented to herself and situation. Speech coherent, rapid at times. Abstraction fair, computation impaired, language function intact, attention span short. Mood and affect remain somewhat labile. LABORATORY DATA: Reviewed. IMPRESSION: Unchanged from initial note. PLAN: Stop the Seroquel, increase Cymbalta to 60 mg a day. Rest unchanged. MAN Yuridia DAN MD DR: HEATHER/kika JOB#: [id number] / [id number]
--- NOTE | 2018-12-15 22:57 | PDOC ---
Exam Note: [place] Note: Please also refer to the separate dictated note~for this date of service dictated separately.~Patient seen individually. Discussed the patient with Nursing staff reviewed the chart.~Reviewed interim history and current functioning. Reviewed vital signs,~Labs/ Radiology~and current medications noted below. Continue current treatment with the changes noted in the dictated addendum note Assessment: Vital Signs: Vital Signs Date Time Temp Pulse Resp B/P (MAP) Pulse Ox O2 Delivery O2 Flow Rate FiO2 12/15/18 20:03 93 Nasal Cannula 4.0 12/15/18 19:49 93 165/91 12/15/18 16:24 98.7 23 I&O Intake and Output 12/15/18 06:59 Intake Total 1240 ml Balance 1240 ml Intake Oral 1240 ml # Voids 1 Labs: Laboratory Tests Test 12/15/18 02:00 12/15/18 07:40 12/15/18 11:46 12/15/18 17:03 White Blood Count 5.2 x10^3/uL (4.0-11.0) Red Blood Count 3.75 x10^6/uL (3.50-5.40) Hemoglobin 9.7 g/dL (12.0-15.5) L Hematocrit 30.9 % (36.0-47.0) L Mean Corpuscular Volume 82 fL (79-100) Mean Corpuscular Hemoglobin 26 pg (25-35) Mean Corpuscular Hemoglobin Concent 31 g/dL (31-37) Red Cell Distribution Width 17.0 % (11.5-14.5) H Platelet Count 466 x10^3/uL (140-400) H Neutrophils (%) (Auto) 50 % (31-73) Lymphocytes (%) (Auto) 35 % (24-48) Monocytes (%) (Auto) 12 % (0-9) H Eosinophils (%) (Auto) 2 % (0-3) Basophils (%) (Auto) 1 % (0-3) Neutrophils # (Auto) 2.6 x10^3uL (1.8-7.7) Lymphocytes # (Auto) 1.8 x10^3/uL (1.0-4.8) Monocytes # (Auto) 0.6 x10^3/uL (0.0-1.1) Eosinophils # (Auto) 0.1 x10^3/uL (0.0-0.7) Basophils # (Auto) 0.0 x10^3/uL (0.0-0.2) Sodium Level 141 mmol/L (136-145) Potassium Level 3.5 mmol/L (3.5-5.1) Chloride Level 99 mmol/L (98-107) Carbon Dioxide Level 40 mmol/L (21-32) H Anion Gap 2 (6-14) L Blood Urea Nitrogen 21 mg/dL (7-20) H Creatinine 1.1 mg/dL (0.6-1.0) H Estimated GFR (Cockcroft-Gault) 50.2 BUN/Creatinine Ratio 19 (6-20) Glucose Level 107 mg/dL (70-99) H Calcium Level 9.3 mg/dL (8.5-10.1) Total Bilirubin 0.2 mg/dL (0.2-1.0) Aspartate Amino Transferase (AST) 17 U/L (15-37) Alanine Aminotransferase (ALT) 18 U/L (14-59) Alkaline Phosphatase 66 U/L (46-116) Total Protein 7.0 g/dL (6.4-8.2) Albumin 3.0 g/dL (3.4-5.0) L Albumin/Globulin Ratio 0.8 (1.0-1.7) L Glucose (Fingerstick) 117 mg/dL (70-99) H 164 mg/dL (70-99) H 210 mg/dL (70-99) H Test 12/15/18 19:34 Glucose (Fingerstick) 222 mg/dL (70-99) H Current Medications: Meds: Current Medications Magnesium Oxide (Magnesium Oxide) 400 mg 1X ONCE PO Last administered on at 14:22; Start 12/10/18 at 14:30; Stop 12/10/18 at 14:32; Status DC Oxycodone HCl (Roxicodone) 5 mg PRN Q4HRS PRN PO PAIN Last administered on at 13:36; Start 12/10/18 at 16:30 Albuterol Sulfate (Ventolin) 2.5 mg PRN Q2HR PRN NEB SHORTNESS OF BREATH; Start 12/10/18 at 17:00; Stop 12/12/18 at 16:45; Status DC Clonidine HCl (Catapres) 0.1 mg BID PO Last administered on 12/15/18 19:49; Start 12/10/18 at 21:00 Diclofenac Sodium (Voltaren) 100 popeye TID TP Last administered on 12/15/18 19:51 ; Start 12/10/18 at 21:00; Stop 12/15/18 at 19:53; Status DC Guaifenesin (MUCINEX ER with DM) 1 tab BID PO Last administered on 12/15/18 19: 49; Start 12/10/18 at 21:00 Ipratropium [place] (Atrovent) 0.2 mg [id number] IH ; Start 12/10/18 at 17:00; Stop 12/10/18 at 17:29; Status DC Milnacipran HCl (Savella) 100 mg BID PO Last administered on 12/15/18 19:50; Start 12/10/18 at 21:00 Nitroglycerin (Nitrostat) 0.4 mg PRN Q5MIN PRN SL CHEST PAIN; Start 12/10/18 at 17:00 Tramadol HCl (Ultram) 50 mg PRN Q6HRS PRN PO PAIN Last administered on 06:34; Start 12/10/18 at 17:00 Buspirone HCl (Buspar) 15 mg BID PO Last administered on 12/15/18 19:49; Start 12/10/18 at 21:00 Carvedilol (Coreg) 12.5 mg BIDWMEALS PO Last administered on 12/15/18 17:00; Start 12/10/18 at 17:00 Vitamin D (Vitamin D3) 1,000 unit BID PO Last administered on 12/15/18 19:49; Start 12/10/18 at 21:00 Diltiazem HCl (Diltiazem 24hr Cd) 300 mg DAILY PO Last administered on 08:02; Start 12/11/18 at 09:00 Duloxetine HCl (Cymbalta) 30 mg DAILY PO Last administered on 12/14/18 08:04; Start 12/11/18 at 09:00; Stop 12/14/18 at 18:43; Status DC Furosemide (Lasix) 60 mg DAILY PO ; Start 12/11/18 at 09:00; Stop 12/11/18 at 09 :00; Status DC Gabapentin (Neurontin) 900 mg BID PO Last administered on 12/15/18 19:50; Start 12/10/18 at 21:00 Hydralazine HCl (Apresoline) 50 mg Q8HRS PO Last administered on 12/15/18 19:49 ; Start 12/10/18 at 22:00 Insulin Human Lispro (HumaLOG) 18 units TIDBFRMEAL SQ Last administered on 12/14at 12:27; Start 12/11/18 at 07:30; Stop 12/15/18 at 16:44; Status DC Insulin Glargine (Lantus) 32 units QHS SQ Last administered on 12/15/18 20:16; Start 12/10/18 at 21:00 Non-Formulary Medication (Levalbuterol Hcl (Xopenex)) 1.25 mg QID IH ; Start at 17:00; Stop 12/10/18 at 17:28; Status DC Losartan Potassium (Cozaar) 100 mg DAILY PO ; Start 12/11/18 at 09:00; Stop at 09:00; Status DC Multivitamins/ Calcium (Thera-M Plus) 1 tab DAILY PO Last administered on at 08:26; Start 12/11/18 at 09:00 Ondansetron HCl (Zofran Odt) 4 mg PRN Q8HRS PRN PO NAUSEA/VOMITING; Start 12/10 at 17:30 Pantoprazole Sodium (Protonix) 40 mg DAILYAC PO Last administered on 12/15/18 08:26; Start 12/11/18 at 07:30 Polyethylene Glycol (miraLAX) 17 gm DAILY PO Last administered on 12/15/18at 08: 25; Start 12/11/18 at 09:00 Non-Formulary Medication (Ropinirole Hcl (Requip Xl)) 6 mg DAILY PO ; Start at 09:00; Stop 12/11/18 at 09:00; Status DC Non-Formulary Medication (Umeclidinium Brm/Vilanterol Tr (Anoro Ellipta 62.5-25 Mcg Inh)) 1 each 1puff IH ; Start 12/10/18 at 17:00; Stop 12/10/18 at 17:30; Status DC Multi-Ingredient Ointment (Analgesic [place]) 1 popeye PRN QID PRN TP MUSCLE PAIN Last administered on 12/12/18at 22:53; Start 12/10/18 at 17:00 Al Hydroxide/Mg Hydroxide (Mylanta Plus Xs) 15 ml PRN AFTMEALHC PRN PO DYSPEPSIA; Start 12/10/18 at 17:00 Magnesium Hydroxide (Milk Of Magnesia) 2,400 mg PRN QHS PRN PO CONSTIPATION; Start 12/10/18 at 17:00 Albuterol Sulfate (Ventolin) 2.5 mg RTQID NEB Last administered on 12/12/18at 09 :58; Start 12/10/18 at 20:00; Stop 12/12/18 at 11:08; Status DC Budesonide (Pulmicort) 0.5 mg RTBID NEB Last administered on 12/11/18at 22:00; Start 12/10/18 at 20:00; Stop 12/12/18 at 16:45; Status DC Ipratropium [place] (Atrovent) 0.25 mg [id number] NEB Last administered on at 10:04; Start 12/10/18 at 20:00; Stop 12/12/18 at 11:08; Status DC Furosemide (Lasix) 40 mg DAILY PO Last administered on 12/15/18at 08:27; Start at 09:00 Non-Formulary Medication (Ropinirole Hcl (Requip Xl)) 6 mg QHS PO ; Start at 21:00; Stop 12/12/18 at 18:00; Status DC Quetiapine Fumarate (SEROquel) 12.5 mg 0900,1700 PO Last administered on at 17:57; Start 12/12/18 at 09:00; Stop 12/14/18 at 18:43; Status DC Vitamin D (Vitamin D3) 50,000 unit WEEKLY PO Last administered on 12/11/18at 21: 26; Start 12/11/18 at 19:30 Albuterol/ Ipratropium (Duoneb) 3 ml RTQID NEB Last administered on 12/15/18at 20 :02; Start 12/12/18 at 12:00 Ropinirole HCl (Requip) 2 mg TID PO Last administered on 12/15/18at 19:48; Start 12/12/18 at 21:00 Glucose (Insta-Glucose) 15 gm STK-MED ONCE .ROUTE Last administered on at 16:56; Start 12/14/18 at 16:56; Stop 12/14/18 at 16:57; Status DC Dextrose 25 gm STK-MED ONCE IV ; Start 12/14/18 at 17:09; Stop 12/14/18 at 17:10 ; Status DC Glucose (Insta-Glucose) 15 gm STK-MED ONCE .ROUTE Last administered on at 17:09; Start 12/14/18 at 17:09; Stop 12/14/18 at 17:10; Status DC Duloxetine HCl (Cymbalta) 60 mg DAILY PO Last administered on 12/15/18at 08:30; Start 12/15/18 at 09:00 Olanzapine (ZyPREXA ZYDIS) 2.5 mg PRN Q2HR PRN PO ANXIETY / AGITATION; Start at 18:45 Albuterol/ Ipratropium (Duoneb) 3 ml 1X ONCE NEB Last administered on at 01:22; Start 12/15/18 at 01:30; Stop 12/15/18 at 01:31; Status DC Insulin Human Lispro (HumaLOG) 14 units TIDBFRMEAL SQ ; Start 12/16/18 at 07:30 Buspirone HCl (Buspar) 10 mg DAILY@1400 PO ; Start 12/16/18 at 14:00 Diclofenac Sodium (Voltaren) 1 popeye TID TP ; Start 12/16/18 at 09:00 Active Scripts Active Reported Zofran (Ondansetron Hcl) 4 Mg Tablet 4 Mg PO Q8HRS PRN Voltaren (Diclofenac Sodium) 100 Gm Gel..gram. 100 Gm TP TID Vitamin D (Cholecalciferol (Vitamin D3)) 1,000 Unit Capsule 1,000 Unit PO BID Tramadol Hcl (Tramadol HCl) 50 Mg Tablet 50 Mg PO PRN Q6HRS PRN Diltiazem 24Hr ER (Diltiazem HCl) 300 Mg Tab.er.24h 300 Mg PO DAILY [facility] Tablet (Multivits-Min/Fa/Lycopene/Lut) 1 Each Tablet 1 Each PO DAILY Savella (Milnacipran Hcl) 50 Mg Tablet 100 Mg PO BID Requip Xl (Ropinirole Hcl) 6 Mg Tab.er.24h 6 Mg PO DAILY Protonix (Pantoprazole Sodium) 40 Mg Tablet.dr 40 Mg PO DAILY06 Miralax (Polyethylene Glycol 3350) 17 Gm Powd.pack 17 Gm PO DAILY Novolog (Insulin Aspart) 100 Unit/1 Ml Vial 18 Unit SQ TIDBFRMEAL NITROGLYCERIN SubLingual (Nitroglycerin) 0.4 Mg Tab.subl 0.4 Mg SL PRN Q5MIN PRN Mucinex Dm Er 600-30 Mg Tablet (Guaifenesin/Dextromethorphan) 1 Each Tab.er.12h 1 Each PO BID Levemir (Insulin Detemir) 100 Unit/1 Ml Vial 32 Unit SQ QHS Xopenex (Levalbuterol Hcl) 1.25 Mg/3 Ml Vial.neb 1.25 Mg IH QID Lasix (Furosemide) 80 Mg Tablet 60 Mg PO DAILY Ipratropium [place] 0.2 Mg/1 Ml Solution 0.2 Mg IH [id number] Hydralazine Hcl 50 Mg Tablet 50 Mg PO Q8HRS Gabapentin 600 Mg Tablet 900 Mg PO BID Cymbalta (Duloxetine Hcl) 30 Mg Capsule.dr 30 Mg PO DAILY Cozaar (Losartan Potassium) 100 Mg Tablet 100 Mg PO DAILY Coreg (Carvedilol) 25 Mg Tablet 12.5 Mg PO BIDWMEALS Clonidine Hcl 0.1 Mg Tablet 0.1 Mg PO BID Buspirone Hcl 15 Mg Tablet 15 Mg PO BID Eliquis (Apixaban) 5 Mg Tab.ds.pk 5 Mg PO BID Anoro Ellipta 62.5-25 Mcg Inh (Umeclidinium Brm/Vilanterol Tr) 1 Each Disk.w.dev 1 Each IH 1PUFF Albuterol Sulfate Neb Soln (Albuterol Sulfate) 2.5 Mg/3 Ml Vial.neb 2.5 Mg NEB Q2HR PRN I have reviewed the current psychotropics carefully including drug interactions. Risk benefit ratio favors no change other than as noted in my dictated progress note. Diagnosis: Problems: (1) Hypomagnesemia (2) Morbid obesity (3) Anemia (4) Renal insufficiency (5) Behavioral problem (6) Medical clearance for psychiatric admission (7) Anxiety disorder (8) Impulse control disorder (9) Major depressive disorder, recurrent episode YULIA DAN MD Dec 15, 2018 22:57
--- NOTE | 2018-12-15 23:51 | NUR ---
Pt located in the dayroom at shift change. Pt calm and interactive with this nurse. Pt did not appear angry or upset or making statements that she wanted to leave. Pt did have multiple somatic complaints and questioned each medication, the dosage and it's use. Compliant with medications and shower.
[2018-12-16] MEDS: IPRATRPIUM/ALBUTEROL 0.5/2.5MG 3 ML NEBU. NEB SCH ×5 (05:17→20:28)
[2018-12-16 06:08] VITALS: BP 149/70
[2018-12-16] MEDS: oxyCODONE IR 5 MG TABLET PO PRN ×3 (06:10→18:09)
[2018-12-16] MEDS: busPIRone 15 MG TABLET. PO SCH ×2 (07:57→20:10)
[2018-12-16] MEDS: rOPINIRole 2 MG TABLET. PO SCH ×3 (07:57→20:09)
[2018-12-16] MEDS: PANTOPRAZOLE 40 MG TABLET. PO SCH (07:57)
[2018-12-16] MEDS: CARVEDILOL 12.5 MG TABLET PO SCH ×2 (07:58→17:55)
[2018-12-16] MEDS: guaiFENesin DM 600/30MG 1 TAB TAB.ER.12H PO SCH ×2 (07:58→20:10)
[2018-12-16] MEDS: CHOLECALCIFEROL (VITAMIN D3) 1,000 UNIT TABLET PO SCH ×2 (07:58→20:10)
[2018-12-16] MEDS: MULTIVITAMIN with MINERAL TABLET. PO SCH (07:58)
[2018-12-16] MEDS: FUROSEMIDE 40 MG TABLET PO SCH (07:59)
[2018-12-16] MEDS: cloNIDine HCL 0.1 MG TABLET PO SCH ×2 (07:59→20:10)
[2018-12-16] MEDS: POLYETHYLENE GLYCOL 3350 17 GM PACKET. PO SCH (07:59)
[2018-12-16] MEDS: GABAPENTIN 300 MG CAPSULE. PO SCH ×2 (08:02→20:17)
[2018-12-16] MEDS: DICLOFENAC SODIUM 1% TOPICAL GEL 100GM TUBE. TP SCH ×3 (08:03→21:00)
[2018-12-16] MEDS: MILNACIPRAN 50 MG TABLET PO SCH ×2 (08:04→20:17)
[2018-12-16] MEDS: INSULIN LISPRO 300 UNITS/3 ML INSULN.PEN. SQ SCH ×3 (08:06→16:30)
--- NOTE | 2018-12-16 11:30 | NUR ---
Nursing Note: Pt initially refused to go to breakfast this morning stating that she would "probably throw up." Later pt summoned aids to bathroom to show blood tinged sputum which COMMODITIES CLERK's showed to this nurse and solar installation crew supervisor. Pt's name placed on Dr. Diaz's list to be seen. Pt has had numerous chest x-rays since being admitted to unit; however, pt informed Lizzie, solar installation crew supervisor that it was necessary to perform a CT in the past to determine that she had pneumonia. Pt given her breakfast in day room. Pt became irate and demanded to see this nurse because she was upset that she was not allowed to keep the napkin with her sputum in it to show doctor. Pt informed that she would be seen by medical doctor today and any necessary tests would be ordered. Pt demanded that each of her medications be reviewed with her. During the review of her meds, pt repeatedly spoke over this nurse.
--- NOTE | 2018-12-16 11:32 | NUR ---
ZAHEER spoke with Marisa at [facility] to discuss, updates as requested. Marisa reports that the nursing notes are not descriptive enough and she would like updates on pt behaviors. "if you guys want to continued to be paid to have her there, we will need more thorough notes about the things that pt is doing". ZAHEER discussed pt refusal of taking a medications, her persistence in wanting to discharge either routinely or AMA if that is not possible. Pt is very picking, demanding and often speaks in a hurried manner to which staff cannot get a word in edgewise. Per ZAHEER report, Marisa will approve the last few days; however, ZAHEER will have to complete another update with [facility] tomorrow.
--- NOTE | 2018-12-16 12:00 | NUR ---
SW received a call from pt dtr, Brittany, about a few of her concerns. Pt dtr reports that last night, pt left a lengthy voice mail in which she sounded short of breath. SW explained that as of this morning she had been coughing up green sputum, with traces of blood. A CT will be completed as there is concern for pneumonia. Pt dtr understood that but mentioned that on the voice mail, she could hear a female staff yelling and being rude in the background and was upsetting to hear. She just wanted to make sure that it was known and she kept the voicemail in the event that it needed to be heard by anyone here. Pt dtr also discussed concerns that her mother was told that pt could go at any time; however, going back to her facility was not appropriate. She would need to live at home with her dtr. SW explained that would never have been discussed with the psychiatrist, as that is not his primary reason for the assessments, as much as medications and its effects are. SW will double check into this and let pt dtr know. Pt dtr also is questioning why pt was being told that she will get her medications shot form if she does not take them. SW explained that was not a correct statement. The only way pt gets a "shot" is in the event they are consistently refusing medications that are needed or if they have a diagnosis that maybe the shot form may be more effective. More importantly, pt is a self-sign; she can refuse medications. The only medication pt refused was the Seroquel in which she reported that she felt it changed her mood and made her drowsy. Pt dtr is in support of the Seroquel especially considering that the dosage was low (e.g. 12.5 mg q 0900 and 1700). SW and pt dtr discussed pt having behaviors that are not always congruent with pt diagnosis. Some has to do with mental issues, but other points are personality. Pt dtr does have concern about beginning stages of dementia as pt has appeared to be forgetful and does not remember conversations had. SW will discuss this with the team and pt dtr plans to contact SW back tomorrow for an update. Pt dtr does want to note that she does understand that her mother has mental health issues and it is difficult for her to determine what is true and what is not true. She fears that pt wants to live with her; however, that cannot be possible as she and her work 2 jobs and she has a child to care for; pt would not receive the proper care living at home with her dtr.
[2018-12-16] MEDS: busPIRone 10 MG TABLET. PO SCH (14:36)
[2018-12-16 15:48] VITALS: BP 141/76
[2018-12-16] MEDS ORDERED: IOHEXOL 350 MG/ML 100 ML VIAL. IV ONE (17:15)
--- NOTE | 2018-12-16 18:01 | NUR ---
Nursing Note Pt very demanding at dinner, refusing to eat what was served. Making demands for more cottage cheese, asking to speaking with fixture relamper after having spoken to her multiple times. Pt only ate a portion of her meal and her FSBS was 70; Humalog held. Will continue to monitor.
--- NOTE | 2018-12-16 18:39 | RAD ---
Ultrasound venous Doppler INDICATION: Bilateral lower extremity Swelling. History of DVT. TECHNIQUE: Grayscale, color Doppler and spectral waveform ultrasound images of the bilateral lower extremities deep veins obtained. COMPARISON: None FINDINGS: The interrogated deep veins are compressible and demonstrate evidence of blood flow with normal respiratory variation and response to augmentation. IMPRESSION: Technically difficult exam due to patient's body habitus. Within this limitation, No sonographic evidence of acute DVT of the bilateral lower extremity deep veins. Electronically signed by: Andre Walter DO (12/16/2018 6:36 PM) [facility]
--- NOTE | 2018-12-16 19:34 | RAD ---
PQRS Compliance statement: One or more of the following individualized dose reduction techniques were utilized for this examination: 1. Automated exposure control. 2. Adjustment of the mA and/or kV according to patient size. 3. Use of iterative reconstruction technique. Indication:shortness of breath, hemoptysis, hx of DVT
heart disease, copd, asthma, HTN
Gave Omni 350 75ml iv - reduced dose creatinine 1.1 TECHNIQUE: CT angiogram of the chest with IV contrast with multiplanar MIP reformats. COMPARISON:None FINDINGS: Suboptimal PE study due to contrast bolus timing and reduced dose. No large central filling defect in the pulmonary arteries. Evaluation of segmental and subsegmental pulmonary arteries is limited. CABG changes noted. No pericardial or pleural effusion. Heart is normal in size. Clear neck base. No enlarged axillary adenopathy. Multiple enlarged mediastinal lymph nodes are seen, the largest in the pretracheal space measuring 1.8 x 1.7 cm. Enlarged left hilar lymph node measuring 1.7 x 1.4 cm. Subpleural patchy opacities are seen in the left upper lobe and superior segment of the left lower lobe. Wedge-shaped opacity seen along the right minor fissure. Bibasilar platelike atelectasis seen. Visualized sections through the liver, spleen, pancreas, adrenals and kidneys within normal limits. No suspicious bony lesion. IMPRESSION: 1. Suboptimal PE study due to contrast bolus timing and along the pelvis. No large central PE. Evaluation of segmental and subsegmental pulmonary arteries is limited. 2. Multifocal patchy and wedge-shaped consolidations may be secondary to subsegmental atelectasis or infection. Follow-up CT recommended. 3. Mediastinal and left hilar enlarged lymph nodes likely reactive. Electronically signed by: Andre Walter DO (12/16/2018 7:31 PM) [facility]
[2018-12-16] MEDS: APIXABAN 5 MG TABLET. PO SCH (20:17)
[2018-12-16] MEDS: INSULIN GLARGINE 300 UNITS/3 ML INSULN.PEN. SQ SCH (20:19)
--- NOTE | 2018-12-16 22:40 | PDOC ---
Exam Note: Iban Note: Please also refer to the separate dictated note~for this date of service dictated separately.~Patient seen individually. Discussed the patient with Nursing staff reviewed the chart.~Reviewed interim history and current functioning. Reviewed vital signs,~Labs/ Radiology~and current medications noted below. Continue current treatment with the changes noted in the dictated addendum note Assessment: Vital Signs: Vital Signs Date Time Temp Pulse Resp B/P (MAP) Pulse Ox O2 Delivery O2 Flow Rate FiO2 12/16/18 20:28 94 Nasal Cannula 4.0 12/16/18 20:16 79 141/76 12/16/18 15:48 97.3 20 I&O Intake and Output 12/16/18 07:00 Intake Total 720 ml Balance 720 ml Intake Oral 720 ml Labs: Laboratory Tests Test 12/16/18 07:47 12/16/18 11:46 12/16/18 17:17 12/16/18 19:19 Glucose (Fingerstick) 128 mg/dL (70-99) H 171 mg/dL (70-99) H 70 mg/dL (70-99) 148 mg/dL (70-99) H Current Medications: Meds: Current Medications Magnesium Oxide (Magnesium Oxide) 400 mg 1X ONCE PO Last administered on 14:22; Start 12/10/18 at 14:30; Stop 12/10/18 at 14:32; Status DC Oxycodone HCl (Roxicodone) 5 mg PRN Q4HRS PRN PO PAIN Last administered on at 18:09; Start 12/10/18 at 16:30 Albuterol Sulfate (Ventolin) 2.5 mg PRN Q2HR PRN NEB SHORTNESS OF BREATH; Start 12/10/18 at 17:00; Stop 12/12/18 at 16:45; Status DC Clonidine HCl (Catapres) 0.1 mg BID PO Last administered on 12/16/18 20:10; Start 12/10/18 at 21:00 Diclofenac Sodium (Voltaren) 100 popeye TID TP Last administered on 12/15/18 19:51 ; Start 12/10/18 at 21:00; Stop 12/15/18 at 19:53; Status DC Guaifenesin (MUCINEX ER with DM) 1 tab BID PO Last administered on 12/16/18 20: 10; Start 12/10/18 at 21:00 Ipratropium Hooper (Atrovent) 0.2 mg [id number] IH ; Start 12/10/18 at 17:00; Stop 12/10/18 at 17:29; Status DC Milnacipran HCl (Savella) 100 mg BID PO Last administered on 12/16/18 20:17; Start 12/10/18 at 21:00 Nitroglycerin (Nitrostat) 0.4 mg PRN Q5MIN PRN SL CHEST PAIN; Start 12/10/18 at 17:00 Tramadol HCl (Ultram) 50 mg PRN Q6HRS PRN PO PAIN Last administered on 06:34; Start 12/10/18 at 17:00 Buspirone HCl (Buspar) 15 mg BID PO Last administered on 12/16/18 20:10; Start 12/10/18 at 21:00 Carvedilol (Coreg) 12.5 mg BIDWMEALS PO Last administered on 12/16/18 17:55; Start 12/10/18 at 17:00 Vitamin D (Vitamin D3) 1,000 unit BID PO Last administered on 12/16/18 20:10; Start 12/10/18 at 21:00 Diltiazem HCl (Diltiazem 24hr Cd) 300 mg DAILY PO Last administered on 07:58; Start 12/11/18 at 09:00 Duloxetine HCl (Cymbalta) 30 mg DAILY PO Last administered on 12/14/18 08:04; Start 12/11/18 at 09:00; Stop 12/14/18 at 18:43; Status DC Furosemide (Lasix) 60 mg DAILY PO ; Start 12/11/18 at 09:00; Stop 12/11/18 at 09 :00; Status DC Gabapentin (Neurontin) 900 mg BID PO Last administered on 12/16/18 20:17; Start 12/10/18 at 21:00 Hydralazine HCl (Apresoline) 50 mg Q8HRS PO Last administered on 12/16/18 20:16 ; Start 12/10/18 at 22:00 Insulin Human Lispro (HumaLOG) 18 units TIDBFRMEAL SQ Last administered on 3/31 /19at 12:27; Start 12/11/18 at 07:30; Stop 12/15/18 at 16:44; Status DC Insulin Glargine (Lantus) 32 units QHS SQ Last administered on 12/16/18at 20:19; Start 12/10/18 at 21:00 Non-Formulary Medication (Levalbuterol Hcl (Xopenex)) 1.25 mg QID IH ; Start at 17:00; Stop 12/10/18 at 17:28; Status DC Losartan Potassium (Cozaar) 100 mg DAILY PO ; Start 12/11/18 at 09:00; Stop at 09:00; Status DC Multivitamins/ Calcium (Thera-M Plus) 1 tab DAILY PO Last administered on at 07:58; Start 12/11/18 at 09:00 Ondansetron HCl (Zofran Odt) 4 mg PRN Q8HRS PRN PO NAUSEA/VOMITING; Start 12/10 at 17:30 Pantoprazole Sodium (Protonix) 40 mg DAILYAC PO Last administered on 12/16/18at 07:57; Start 12/11/18 at 07:30 Polyethylene Glycol (miraLAX) 17 gm DAILY PO Last administered on 12/16/18at 07: 59; Start 12/11/18 at 09:00 Non-Formulary Medication (Ropinirole Hcl (Requip Xl)) 6 mg DAILY PO ; Start at 09:00; Stop 12/11/18 at 09:00; Status DC Non-Formulary Medication (Umeclidinium Brm/Vilanterol Tr (Anoro Ellipta 62.5-25 Mcg Inh)) 1 each 1puff IH ; Start 12/10/18 at 17:00; Stop 12/10/18 at 17:30; Status DC Multi-Ingredient Ointment (Analgesic [place]) 1 popeye PRN QID PRN TP MUSCLE PAIN Last administered on 12/12/18at 22:53; Start 12/10/18 at 17:00 Al Hydroxide/Mg Hydroxide (Mylanta Plus Xs) 15 ml PRN AFTMEALHC PRN PO DYSPEPSIA; Start 12/10/18 at 17:00 Magnesium Hydroxide (Milk Of Magnesia) 2,400 mg PRN QHS PRN PO CONSTIPATION; Start 12/10/18 at 17:00 Albuterol Sulfate (Ventolin) 2.5 mg RTQID NEB Last administered on 12/12/18 09 :58; Start 12/10/18 at 20:00; Stop 12/12/18 at 11:08; Status DC Budesonide (Pulmicort) 0.5 mg RTBID NEB Last administered on 12/11/18at 22:00; Start 12/10/18 at 20:00; Stop 12/12/18 at 16:45; Status DC Ipratropium Hooper (Atrovent) 0.25 mg [id number] NEB Last administered on at 10:04; Start 12/10/18 at 20:00; Stop 12/12/18 at 11:08; Status DC Furosemide (Lasix) 40 mg DAILY PO Last administered on 12/16/18 07:59; Start at 09:00 Non-Formulary Medication (Ropinirole Hcl (Requip Xl)) 6 mg QHS PO ; Start at 21:00; Stop 12/12/18 at 18:00; Status DC Quetiapine Fumarate (SEROquel) 12.5 mg 0900,1700 PO Last administered on 17:57; Start 12/12/18 at 09:00; Stop 12/14/18 at 18:43; Status DC Vitamin D (Vitamin D3) 50,000 unit WEEKLY PO Last administered on 12/11/18 21: 26; Start 12/11/18 at 19:30 Albuterol/ Ipratropium (Duoneb) 3 ml RTQID NEB Last administered on 12/16/18 20 :28; Start 12/12/18 at 12:00 Ropinirole HCl (Requip) 2 mg TID PO Last administered on 12/16/18 20:09; Start 12/12/18 at 21:00 Glucose (Insta-Glucose) 15 gm STK-MED ONCE .ROUTE Last administered on 16:56; Start 12/14/18 at 16:56; Stop 12/14/18 at 16:57; Status DC Dextrose 25 gm STK-MED ONCE IV ; Start 12/14/18 at 17:09; Stop 12/14/18 at 17:10 ; Status DC Glucose (Insta-Glucose) 15 gm STK-MED ONCE .ROUTE Last administered on at 17:09; Start 12/14/18 at 17:09; Stop 12/14/18 at 17:10; Status DC Duloxetine HCl (Cymbalta) 60 mg DAILY PO Last administered on 12/15/18at 08:30; Start 12/15/18 at 09:00; Stop 12/16/18 at 00:35; Status DC Olanzapine (ZyPREXA ZYDIS) 2.5 mg PRN Q2HR PRN PO ANXIETY / AGITATION; Start at 18:45 Albuterol/ Ipratropium (Duoneb) 3 ml 1X ONCE NEB Last administered on at 01:22; Start 12/15/18 at 01:30; Stop 12/15/18 at 01:31; Status DC Insulin Human Lispro (HumaLOG) 14 units TIDBFRMEAL SQ Last administered on at 12:19; Start 12/16/18 at 07:30 Buspirone HCl (Buspar) 10 mg DAILY@1400 PO Last administered on 12/16/18at 14:36 ; Start 12/16/18 at 14:00 Diclofenac Sodium (Voltaren) 1 popeye TID TP Last administered on 12/16/18at 14:37; Start 12/16/18 at 09:00 Apixaban (Eliquis) 5 mg BID PO Last administered on 12/16/18at 20:17; Start at 21:00 Iohexol (Omnipaque 350 Mg/ml) 100 ml 1X ONCE IV Last administered on 12/16/18at 18:45; Start 12/16/18 at 17:15; Stop 12/16/18 at 17:17; Status DC Active Scripts Active Reported Zofran (Ondansetron Hcl) 4 Mg Tablet 4 Mg PO Q8HRS PRN Voltaren (Diclofenac Sodium) 100 Gm Gel..gram. 100 Gm TP TID Vitamin D (Cholecalciferol (Vitamin D3)) 1,000 Unit Capsule 1,000 Unit PO BID Tramadol Hcl (Tramadol HCl) 50 Mg Tablet 50 Mg PO PRN Q6HRS PRN Diltiazem 24Hr ER (Diltiazem HCl) 300 Mg Tab.er.24h 300 Mg PO DAILY Sentry Senior Tablet (Multivits-Min/Fa/Lycopene/Lut) 1 Each Tablet 1 Each PO DAILY Savella (Milnacipran Hcl) 50 Mg Tablet 100 Mg PO BID Requip Xl (Ropinirole Hcl) 6 Mg Tab.er.24h 6 Mg PO DAILY Protonix (Pantoprazole Sodium) 40 Mg Tablet.dr 40 Mg PO DAILY06 Miralax (Polyethylene Glycol 3350) 17 Gm Powd.pack 17 Gm PO DAILY Novolog (Insulin Aspart) 100 Unit/1 Ml Vial 18 Unit SQ TIDBFRMEAL NITROGLYCERIN SubLingual (Nitroglycerin) 0.4 Mg Tab.subl 0.4 Mg SL PRN Q5MIN PRN Mucinex Dm Er 600-30 Mg Tablet (Guaifenesin/Dextromethorphan) 1 Each Tab.er.12h 1 Each PO BID Levemir (Insulin Detemir) 100 Unit/1 Ml Vial 32 Unit SQ QHS Xopenex (Levalbuterol Hcl) 1.25 Mg/3 Ml Vial.neb 1.25 Mg IH QID Lasix (Furosemide) 80 Mg Tablet 60 Mg PO DAILY Ipratropium Hooper 0.2 Mg/1 Ml Solution 0.2 Mg IH [id number] Hydralazine Hcl 50 Mg Tablet 50 Mg PO Q8HRS Gabapentin 600 Mg Tablet 900 Mg PO BID Cymbalta (Duloxetine Hcl) 30 Mg Capsule.dr 30 Mg PO DAILY Cozaar (Losartan Potassium) 100 Mg Tablet 100 Mg PO DAILY Coreg (Carvedilol) 25 Mg Tablet 12.5 Mg PO BIDWMEALS Clonidine Hcl 0.1 Mg Tablet 0.1 Mg PO BID Buspirone Hcl 15 Mg Tablet 15 Mg PO BID Eliquis (Apixaban) 5 Mg Tab.ds.pk 5 Mg PO BID Anoro Ellipta 62.5-25 Mcg Inh (Umeclidinium Brm/Vilanterol Tr) 1 Each Disk.w.dev 1 Each IH 1PUFF Albuterol Sulfate Neb Soln (Albuterol Sulfate) 2.5 Mg/3 Ml Vial.neb 2.5 Mg NEB Q2HR PRN I have reviewed the current psychotropics carefully including drug interactions. Risk benefit ratio favors no change other than as noted in my dictated progress note. Diagnosis: Problems: (1) Hypomagnesemia (2) Morbid obesity (3) Anemia (4) Renal insufficiency (5) Behavioral problem (6) Medical clearance for psychiatric admission (7) Anxiety disorder (8) Impulse control disorder (9) Major depressive disorder, recurrent episode YULIA DAN MD Dec 16, 2018 22:40
--- NOTE | 2018-12-17 03:19 | PN ---
DATE: 12/15/2018 This late entry for 12/15/2018 covers elements not covered in my initial note. SUBJECTIVE: I met with the patient at length in the evening and have talked with nursing staff several times during the day. The patient slept 6 hours previous night. In the morning, she refused her medications, urinated on the floor, calling her daughter repeatedly, complaining about staff not giving her water till she takes her medications, anxious, restless, demanding to leave. I have discussed with her that we can transition as soon as appropriate. Arrangements are made since she denies suicidal ideation, but she continues to have significant mood lability. REVIEW OF SYSTEMS: Ambulation impaired, 1 person assist in transfer. No CV, , pulmonary, eye system symptoms on review. MENTAL STATUS EXAM: Oriented reasonably. Speech coherent, rapid at times. Abstraction fair, computation impaired, language function intact, attention span short. Mood and affect remains labile. LABORATORY DATA: Reviewed. IMPRESSION: Mood disorder, unspecified; major depressive disorder, recurrent, in partial remission; anxiety disorder, unspecified; rule out bipolar 1 disorder, unspecified. PLAN: The patient is on Savella and we will avoid using 2 antidepressants in combination and stop the Cymbalta. We may consider adding an extra dosage of BuSpar depending on how she does. I have discussed with nursing staff several times during the day on account of the patient's ongoing mood lability. MAN Yuridia DAN MD DR: HEATHER/kika JOB#: [id number] / [id number]
[2018-12-17] MEDS: oxyCODONE IR 5 MG TABLET PO PRN ×2 (04:24→14:18)
[2018-12-17 05:48] VITALS: BP 121/69
[2018-12-17] MEDS: FUROSEMIDE 40 MG TABLET PO SCH (07:41)
[2018-12-17] MEDS: MULTIVITAMIN with MINERAL TABLET. PO SCH (07:42)
[2018-12-17] MEDS: APIXABAN 5 MG TABLET. PO SCH ×2 (07:42→20:46)
[2018-12-17] MEDS: PANTOPRAZOLE 40 MG TABLET. PO SCH (07:42)
[2018-12-17] MEDS: cloNIDine HCL 0.1 MG TABLET PO SCH ×2 (07:42→20:46)
[2018-12-17] MEDS: guaiFENesin DM 600/30MG 1 TAB TAB.ER.12H PO SCH ×2 (07:42→20:46)
[2018-12-17] MEDS: rOPINIRole 2 MG TABLET. PO SCH ×3 (07:42→20:46)
[2018-12-17] MEDS: CHOLECALCIFEROL (VITAMIN D3) 1,000 UNIT TABLET PO SCH ×2 (07:42→20:47)
[2018-12-17] MEDS: CARVEDILOL 12.5 MG TABLET PO SCH ×2 (07:42→16:51)
[2018-12-17] MEDS: busPIRone 15 MG TABLET. PO SCH ×2 (07:42→20:45)
[2018-12-17] MEDS: POLYETHYLENE GLYCOL 3350 17 GM PACKET. PO SCH (07:44)
[2018-12-17] MEDS: GABAPENTIN 300 MG CAPSULE. PO SCH ×2 (07:49→20:52)
[2018-12-17] MEDS: MILNACIPRAN 50 MG TABLET PO SCH ×2 (07:49→20:52)
[2018-12-17] MEDS: DICLOFENAC SODIUM 1% TOPICAL GEL 100GM TUBE. TP SCH ×3 (07:50→21:14)
[2018-12-17] MEDS: INSULIN LISPRO 300 UNITS/3 ML INSULN.PEN. SQ SCH ×3 (07:56→17:10)
[2018-12-17] MEDS: IPRATRPIUM/ALBUTEROL 0.5/2.5MG 3 ML NEBU. NEB SCH ×3 (11:21→20:44)
[2018-12-17] MEDS: busPIRone 10 MG TABLET. PO SCH (13:30)
--- NOTE | 2018-12-17 14:29 | NUR ---
Behavior Intervention Response and Plan: BIRP Note: Behavior: Assumed Care of patient, patient located in Day Room at shift change. Patient exhibited the following behavior Disorganized, Compliant, calm. Brief assessment on rounds of vital signs, medication needs, lab studies, and pain. Treatment plan problems 1 & 2. Intervention: Patient assessed and the following interventions initiated safety checks 15 Minute Checks Cognitive Assessment , Head to toe Assessment , Medications. Response: After interactions and interventions patient responded in the following manner, Calm , Compulsive ,Compliant. Continue to assess behaviors and condition will continue to monitor throughout the shift as needed. Patient educated on ADL's, and hand hygiene. 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 Continue to assess patient for changes in above assessment. Monitor for medication needs, pain, and safety concerns. Hourly rounding performed to ensure safe environment.
--- NOTE | 2018-12-17 15:13 | NUR ---
SW faxed updated information over to pt insurance for continued stay. SW will await returned fax with approval or denial of pt stay. Pt will plan to discharge back to [facility].
[2018-12-17 16:45] VITALS: BP 129/75
[2018-12-17] MEDS: INSULIN GLARGINE 300 UNITS/3 ML INSULN.PEN. SQ SCH (20:53)
--- NOTE | 2018-12-17 21:31 | PN ---
DATE: 12/16/2018 PSYCHIATRIC PROGRESS NOTE This late entry 12/16/2018 covers elements not covered in my initial note. SUBJECTIVE: I met with the patient in the evening at length and repeated phone calls from nursing staff and social service staff during the day because of the patient's marked mood lability, irritability. Previous night, she was arguing, threatening to leave AMA, refused breakfast in the morning, slept 6-1/[address] Diaz is looking at her medically. She complains of having excessive sputum. CT and venous Doppler are being done. She reportedly told her daughter, she would refuse medications. REVIEW OF SYSTEMS: Ambulation impaired, in wheelchair. No CV, , pulmonary, eye system symptoms on review. She has vague somatic symptoms. MENTAL STATUS EXAM: Oriented to herself and situation. Speech is coherent, still pressured. Abstraction fair, computation impaired, language function intact, attention span short. Attention span short. Language function intact. Mood and affect labile. LABORATORY DATA: Reviewed. IMPRESSION: Major depressive disorder; anxiety disorder, unspecified; rule out bipolar 1 disorder, unspecified. PLAN: Continue current psychotropics. Cymbalta has been stopped since she is on Savella. Maintain BuSpar, gabapentin along with Zyprexa p.r.n. YULIA DAN MD DR: HEATHER/kika JOB#: [id number] / [id number]
--- NOTE | 2018-12-17 22:05 | NUR ---
PT in room in bed and on the phone at time of assessment and medication administration. PT took a shower tonight. PT questioned all medications. Medications explained in detail. PT compliant with medication administration by taking 1 at a time with honey-thickened water. PT calm and cooperative with assessment. PT noted to have a nonproductive cough (although per PT, sputum is "real green"). 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 PT noted to be able to hear headline writer fine at normal speaking volume at 5 feet away from PT.
--- NOTE | 2018-12-17 22:34 | PDOC ---
Exam Note: Iban Note: Please also refer to the separate dictated note~for this date of service dictated separately.~Patient seen individually. Discussed the patient with Nursing staff reviewed the chart.~Reviewed interim history and current functioning. Reviewed vital signs,~Labs/ Radiology~and current medications noted below. Continue current treatment with the changes noted in the dictated addendum note Assessment: Vital Signs: Vital Signs Date Time Temp Pulse Resp B/P (MAP) Pulse Ox O2 Delivery O2 Flow Rate FiO2 12/17/18 21:46 91 Nasal Cannula 1.0 12/17/18 20:46 82 129/75 12/17/18 16:45 97.7 20 I&O Intake and Output 12/17/18 07:00 Intake Total 1080 ml Balance 1080 ml Intake Oral 1080 ml # Voids 1 Labs: Laboratory Tests Test 12/17/18 07:48 12/17/18 12:16 12/17/18 16:57 12/17/18 19:02 Glucose (Fingerstick) 128 mg/dL (70-99) H 58 mg/dL (70-99) L 175 mg/dL (70-99) H 159 mg/dL (70-99) H Current Medications: Meds: Current Medications Magnesium Oxide (Magnesium Oxide) 400 mg 1X ONCE PO Last administered on at 14:22; Start 12/10/18 at 14:30; Stop 12/10/18 at 14:32; Status DC Oxycodone HCl (Roxicodone) 5 mg PRN Q4HRS PRN PO PAIN Last administered on at 14:18; Start 12/10/18 at 16:30 Albuterol Sulfate (Ventolin) 2.5 mg PRN Q2HR PRN NEB SHORTNESS OF BREATH; Start 12/10/18 at 17:00; Stop 12/12/18 at 16:45; Status DC Clonidine HCl (Catapres) 0.1 mg BID PO Last administered on 12/17/18at 20:46; Start 12/10/18 at 21:00 Diclofenac Sodium (Voltaren) 100 popeye TID TP Last administered on 12/15/18at 19:51 ; Start 12/10/18 at 21:00; Stop 12/15/18 at 19:53; Status DC Guaifenesin (MUCINEX ER with DM) 1 tab BID PO Last administered on 12/17/18 20: 46; Start 12/10/18 at 21:00 Ipratropium Sobieski (Atrovent) 0.2 mg [id number] IH ; Start 12/10/18 at 17:00; Stop 12/10/18 at 17:29; Status DC Milnacipran HCl (Savella) 100 mg BID PO Last administered on 12/17/18 20:52; Start 12/10/18 at 21:00 Nitroglycerin (Nitrostat) 0.4 mg PRN Q5MIN PRN SL CHEST PAIN; Start 12/10/18 at 17:00 Tramadol HCl (Ultram) 50 mg PRN Q6HRS PRN PO PAIN Last administered on 06:34; Start 12/10/18 at 17:00 Buspirone HCl (Buspar) 15 mg BID PO Last administered on 12/17/18 07:42; Start 12/10/18 at 21:00; Stop 12/17/18 at 18:31; Status DC Carvedilol (Coreg) 12.5 mg BIDWMEALS PO Last administered on 12/17/18 16:51; Start 12/10/18 at 17:00 Vitamin D (Vitamin D3) 1,000 unit BID PO Last administered on 12/17/18 20:47; Start 12/10/18 at 21:00 Diltiazem HCl (Diltiazem 24hr Cd) 300 mg DAILY PO Last administered on 07:43; Start 12/11/18 at 09:00 Duloxetine HCl (Cymbalta) 30 mg DAILY PO Last administered on 12/14/18 08:04; Start 12/11/18 at 09:00; Stop 12/14/18 at 18:43; Status DC Furosemide (Lasix) 60 mg DAILY PO ; Start 12/11/18 at 09:00; Stop 12/11/18 at 09 :00; Status DC Gabapentin (Neurontin) 900 mg BID PO Last administered on 12/17/18 20:52; Start 12/10/18 at 21:00 Hydralazine HCl (Apresoline) 50 mg Q8HRS PO Last administered on 12/17/18 05:59 ; Start 12/10/18 at 22:00 Insulin Human Lispro (HumaLOG) 18 units TIDBFRMEAL SQ Last administered on 12/14at 12:27; Start 12/11/18 at 07:30; Stop 12/15/18 at 16:44; Status DC Insulin Glargine (Lantus) 32 units QHS SQ Last administered on 12/17/18at 20:53; Start 12/10/18 at 21:00 Non-Formulary Medication (Levalbuterol Hcl (Xopenex)) 1.25 mg QID IH ; Start at 17:00; Stop 12/10/18 at 17:28; Status DC Losartan Potassium (Cozaar) 100 mg DAILY PO ; Start 12/11/18 at 09:00; Stop at 09:00; Status DC Multivitamins/ Calcium (Thera-M Plus) 1 tab DAILY PO Last administered on at 07:42; Start 12/11/18 at 09:00 Ondansetron HCl (Zofran Odt) 4 mg PRN Q8HRS PRN PO NAUSEA/VOMITING; Start 12/10 at 17:30 Pantoprazole Sodium (Protonix) 40 mg DAILYAC PO Last administered on 12/17/18 07:42; Start 12/11/18 at 07:30 Polyethylene Glycol (miraLAX) 17 gm DAILY PO Last administered on 12/17/18at 07: 44; Start 12/11/18 at 09:00 Non-Formulary Medication (Ropinirole Hcl (Requip Xl)) 6 mg DAILY PO ; Start at 09:00; Stop 12/11/18 at 09:00; Status DC Non-Formulary Medication (Umeclidinium Brm/Vilanterol Tr (Anoro Ellipta 62.5-25 Mcg Inh)) 1 each 1puff IH ; Start 12/10/18 at 17:00; Stop 12/10/18 at 17:30; Status DC Multi-Ingredient Ointment (Analgesic [place]) 1 popeye PRN QID PRN TP MUSCLE PAIN Last administered on 12/12/18at 22:53; Start 12/10/18 at 17:00 Al Hydroxide/Mg Hydroxide (Mylanta Plus Xs) 15 ml PRN AFTMEALHC PRN PO DYSPEPSIA; Start 12/10/18 at 17:00 Magnesium Hydroxide (Milk Of Magnesia) 2,400 mg PRN QHS PRN PO CONSTIPATION; Start 12/10/18 at 17:00 Albuterol Sulfate (Ventolin) 2.5 mg RTQID NEB Last administered on 12/12/18at 09 :58; Start 12/10/18 at 20:00; Stop 12/12/18 at 11:08; Status DC Budesonide (Pulmicort) 0.5 mg RTBID NEB Last administered on 12/11/18at 22:00; Start 12/10/18 at 20:00; Stop 12/12/18 at 16:45; Status DC Ipratropium [place] (Atrovent) 0.25 mg [id number] NEB Last administered on at 10:04; Start 12/10/18 at 20:00; Stop 12/12/18 at 11:08; Status DC Furosemide (Lasix) 40 mg DAILY PO Last administered on 12/17/18 07:41; Start at 09:00 Non-Formulary Medication (Ropinirole Hcl (Requip Xl)) 6 mg QHS PO ; Start at 21:00; Stop 12/12/18 at 18:00; Status DC Quetiapine Fumarate (SEROquel) 12.5 mg 0900,1700 PO Last administered on 17:57; Start 12/12/18 at 09:00; Stop 12/14/18 at 18:43; Status DC Vitamin D (Vitamin D3) 50,000 unit WEEKLY PO Last administered on 12/11/18 21: 26; Start 12/11/18 at 19:30 Albuterol/ Ipratropium (Duoneb) 3 ml RTQID NEB Last administered on 12/17/18 20 :44; Start 12/12/18 at 12:00 Ropinirole HCl (Requip) 2 mg TID PO Last administered on 12/17/18 20:46; Start 12/12/18 at 21:00 Glucose (Insta-Glucose) 15 gm STK-MED ONCE .ROUTE Last administered on 16:56; Start 12/14/18 at 16:56; Stop 12/14/18 at 16:57; Status DC Dextrose 25 gm STK-MED ONCE IV ; Start 12/14/18 at 17:09; Stop 12/14/18 at 17:10 ; Status DC Glucose (Insta-Glucose) 15 gm STK-MED ONCE .ROUTE Last administered on at 17:09; Start 12/14/18 at 17:09; Stop 12/14/18 at 17:10; Status DC Duloxetine HCl (Cymbalta) 60 mg DAILY PO Last administered on 12/15/18at 08:30; Start 12/15/18 at 09:00; Stop 12/16/18 at 00:35; Status DC Olanzapine (ZyPREXA ZYDIS) 2.5 mg PRN Q2HR PRN PO ANXIETY / AGITATION; Start at 18:45 Albuterol/ Ipratropium (Duoneb) 3 ml 1X ONCE NEB Last administered on 01:22; Start 12/15/18 at 01:30; Stop 12/15/18 at 01:31; Status DC Insulin Human Lispro (HumaLOG) 14 units TIDBFRMEAL SQ Last administered on 17:10; Start 12/16/18 at 07:30 Buspirone HCl (Buspar) 10 mg DAILY@1400 PO Last administered on 12/17/18 13:30 ; Start 12/16/18 at 14:00; Stop 12/17/18 at 18:31; Status DC Diclofenac Sodium (Voltaren) 1 popeye TID TP Last administered on 12/17/18 21:14; Start 12/16/18 at 09:00 Apixaban (Eliquis) 5 mg BID PO Last administered on 12/17/18at 20:46; Start at 21:00 Iohexol (Omnipaque 350 Mg/ml) 100 ml 1X ONCE IV Last administered on 12/16/18 18:45; Start 12/16/18 at 17:15; Stop 12/16/18 at 17:17; Status DC Buspirone HCl (Buspar) 15 mg TID PO Last administered on 12/17/18at 20:45; Start 12/17/18 at 21:00 Trazodone HCl (Desyrel) 50 mg PRN QHS PRN PO INSOMNIA, MAY REPEAT X1; Start 12/17/18 at 18:45 Active Scripts Active Reported Zofran (Ondansetron Hcl) 4 Mg Tablet 4 Mg PO Q8HRS PRN Voltaren (Diclofenac Sodium) 100 Gm Gel..gram. 100 Gm TP TID Vitamin D (Cholecalciferol (Vitamin D3)) 1,000 Unit Capsule 1,000 Unit PO BID Tramadol Hcl (Tramadol HCl) 50 Mg Tablet 50 Mg PO PRN Q6HRS PRN Diltiazem 24Hr ER (Diltiazem HCl) 300 Mg Tab.er.24h 300 Mg PO DAILY Sentry Senior Tablet (Multivits-Min/Fa/Lycopene/Lut) 1 Each Tablet 1 Each PO DAILY Savella (Milnacipran Hcl) 50 Mg Tablet 100 Mg PO BID Requip Xl (Ropinirole Hcl) 6 Mg Tab.er.24h 6 Mg PO DAILY Protonix (Pantoprazole Sodium) 40 Mg Tablet.dr 40 Mg PO DAILY06 Miralax (Polyethylene Glycol 3350) 17 Gm Powd.pack 17 Gm PO DAILY Novolog (Insulin Aspart) 100 Unit/1 Ml Vial 18 Unit SQ TIDBFRMEAL NITROGLYCERIN SubLingual (Nitroglycerin) 0.4 Mg Tab.subl 0.4 Mg SL PRN Q5MIN PRN Mucinex Dm Er 600-30 Mg Tablet (Guaifenesin/Dextromethorphan) 1 Each Tab.er.12h 1 Each PO BID Levemir (Insulin Detemir) 100 Unit/1 Ml Vial 32 Unit SQ QHS Xopenex (Levalbuterol Hcl) 1.25 Mg/3 Ml Vial.neb 1.25 Mg IH QID Lasix (Furosemide) 80 Mg Tablet 60 Mg PO DAILY Ipratropium Sobieski 0.2 Mg/1 Ml Solution 0.2 Mg IH [id number] Hydralazine Hcl 50 Mg Tablet 50 Mg PO Q8HRS Gabapentin 600 Mg Tablet 900 Mg PO BID Cymbalta (Duloxetine Hcl) 30 Mg Capsule.dr 30 Mg PO DAILY Cozaar (Losartan Potassium) 100 Mg Tablet 100 Mg PO DAILY Coreg (Carvedilol) 25 Mg Tablet 12.5 Mg PO BIDWMEALS Clonidine Hcl 0.1 Mg Tablet 0.1 Mg PO BID Buspirone Hcl 15 Mg Tablet 15 Mg PO BID Eliquis (Apixaban) 5 Mg Tab.ds.pk 5 Mg PO BID Anoro Ellipta 62.5-25 Mcg Inh (Umeclidinium Brm/Vilanterol Tr) 1 Each Disk.w.dev 1 Each IH 1PUFF Albuterol Sulfate Neb Soln (Albuterol Sulfate) 2.5 Mg/3 Ml Vial.neb 2.5 Mg NEB Q2HR PRN I have reviewed the current psychotropics carefully including drug interactions. Risk benefit ratio favors no change other than as noted in my dictated progress note. Diagnosis: Problems: (1) Hypomagnesemia (2) Morbid obesity (3) Anemia (4) Renal insufficiency (5) Behavioral problem (6) Medical clearance for psychiatric admission (7) Anxiety disorder (8) Impulse control disorder (9) Major depressive disorder, recurrent episode YULIA DAN MD Dec 17, 2018 22:34
[2018-12-18] MEDS: METHYL SALICYLATE/MENTHOL TOPICAL OINTMENT 29GM TUBE. TP PRN ×2 (02:37→21:43)
[2018-12-18] MEDS: IPRATRPIUM/ALBUTEROL 0.5/2.5MG 3 ML NEBU. NEB SCH ×4 (05:05→20:00)
[2018-12-18 06:02] VITALS: BP 125/77
[2018-12-18] MEDS: INSULIN LISPRO 300 UNITS/3 ML INSULN.PEN. SQ SCH ×3 (07:30→16:30)
[2018-12-18] MEDS: busPIRone 15 MG TABLET. PO SCH ×3 (08:39→19:43)
[2018-12-18] MEDS: guaiFENesin DM 600/30MG 1 TAB TAB.ER.12H PO SCH ×2 (08:39→19:43)
[2018-12-18] MEDS: CHOLECALCIFEROL (VITAMIN D3) 1,000 UNIT TABLET PO SCH ×2 (08:39→19:43)
[2018-12-18] MEDS: MULTIVITAMIN with MINERAL TABLET. PO SCH (08:40)
[2018-12-18] MEDS: rOPINIRole 2 MG TABLET. PO SCH ×3 (08:40→19:43)
[2018-12-18] MEDS: APIXABAN 5 MG TABLET. PO SCH ×2 (08:40→19:43)
[2018-12-18] MEDS: FUROSEMIDE 40 MG TABLET PO SCH (08:40)
[2018-12-18] MEDS: MILNACIPRAN 50 MG TABLET PO SCH ×2 (08:40→19:46)
[2018-12-18] MEDS: POLYETHYLENE GLYCOL 3350 17 GM PACKET. PO SCH (08:40)
[2018-12-18] MEDS: PANTOPRAZOLE 40 MG TABLET. PO SCH (08:40)
[2018-12-18] MEDS: cloNIDine HCL 0.1 MG TABLET PO SCH ×2 (08:41→19:43)
[2018-12-18] MEDS: CARVEDILOL 12.5 MG TABLET PO SCH ×2 (08:41→17:11)
[2018-12-18] MEDS: DICLOFENAC SODIUM 1% TOPICAL GEL 100GM TUBE. TP SCH ×3 (08:42→20:09)
[2018-12-18] MEDS: CHOLECALCIFEROL (VITAMIN D3) 50,000 UNIT CAPSULE PO SCH (08:44)
[2018-12-18] MEDS: GABAPENTIN 300 MG CAPSULE. PO SCH ×2 (08:44→19:45)
--- NOTE | 2018-12-18 10:04 | NUR ---
WEEKLY ACTIVITY THERAPY NOTE Date of Admission: 12/10/2018 Date of AT Assessment: 12/15/2018 Goal aimed: to increase engagement Initial goal:Pt. will participate in at least three individual Activity Therapy sessions before discharge. Weekly progress towards goal: on track Group participation level: minimal Weekly highlights: socializing with peers on Saturday Beneficial adaptations: TBD Behaviors observed: talkative, using fixed oxygen port restricting mobility, often writing, reportedly putting self on floor earlier in the week, enjoys talking with staff Plan: no change to goal
--- NOTE | 2018-12-18 10:50 | NUR ---
WEEKLY NOTE: Pt is eating and sleeping okay. Pt is questioning her medications and over the weekend, knocked medications out of the nurses' hands. Pt is not redirectable at times and wants to call and fabricate stories to her dtr. Pt attends groups and fabricates those stories. 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 Pt will plan to return to [facility] at discharge. Pt is on 2L of oxygen continuous. Pt is on Buspar, Gabapentin, Savella and will start Depakote. Pt will have her labs and levels completed in 3 days. Pt ELOS will be 7-10 days.
--- NOTE | 2018-12-18 13:31 | NUR ---
Behavior Intervention Response and Plan: BIRP Note: Behavior: Assumed Care of patient, patient located in Day Room at shift change. Patient exhibited the following behavior Interactive, Compliant, calm. Brief assessment on rounds of vital signs, medication needs, lab studies, and pain. Treatment plan problems 1 & 2. Intervention: Patient assessed and the following interventions initiated safety checks 15 Minute Checks Cognitive Assessment , Head to toe Assessment , Medications. Response: After interactions and interventions patient responded in the following manner, Calm , Interactive ,Compliant. Continue to assess behaviors and condition will continue to monitor throughout the shift as needed. Patient educated on ADL's, and hand hygiene. 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 Continue to assess patient for changes in above assessment. Monitor for medication needs, pain, and safety concerns. Hourly rounding performed to ensure safe environment.
[2018-12-18 16:13] VITALS: BP 125/71
[2018-12-18] MEDS: DIVALPROEX 125 MG CAP.SPRINK PO SCH (17:11)
[2018-12-18] MEDS: oxyCODONE IR 5 MG TABLET PO PRN (17:11)
--- NOTE | 2018-12-18 19:45 | NUR ---
Pt is asleep in room at shift. On assessment pt is very upset, that she was made to take her Depakote this evening. Attempted to reinforce the importance compliance with medication is. Pt insisted that it would not do her any good. Pt stated that she never received her pain medication even though she was promised it if she took her Depakote. Attempted to explain to pt that the pain medication was administered @ 1711 and it was not time for another dose. Pt is very labile at this time. Pt compliant with medication whole, PRN analgesic balm applied to neck and right shoulder.
[2018-12-18] MEDS: INSULIN GLARGINE 300 UNITS/3 ML INSULN.PEN. SQ SCH (19:46)
--- NOTE | 2018-12-18 22:41 | PDOC ---
Exam Note: Iban Note: Please also refer to the separate dictated note~for this date of service dictated separately.~Patient seen individually. Discussed the patient with Nursing staff reviewed the chart.~Reviewed interim history and current functioning. Reviewed vital signs,~Labs/ Radiology~and current medications noted below. Continue current treatment with the changes noted in the dictated addendum note Assessment: Vital Signs: Vital Signs Date Time Temp Pulse Resp B/P (MAP) Pulse Ox O2 Delivery O2 Flow Rate FiO2 12/18/18 21:44 70 117/66 12/18/18 20:49 95 Nasal Cannula 4.0 12/18/18 20:09 20 12/18/18 16:13 97.6 I&O Intake and Output 12/18/18 07:00 Intake Total 720 ml Balance 720 ml Intake Oral 720 ml Labs: Laboratory Tests Test 12/18/18 07:25 12/18/18 11:53 12/18/18 17:08 12/18/18 19:21 Glucose (Fingerstick) 98 mg/dL (70-99) 138 mg/dL (70-99) H 81 mg/dL (70-99) 186 mg/dL (70-99) H Current Medications: Meds: Current Medications Magnesium Oxide (Magnesium Oxide) 400 mg 1X ONCE PO Last administered on at 14:22; Start 12/10/18 at 14:30; Stop 12/10/18 at 14:32; Status DC Oxycodone HCl (Roxicodone) 5 mg PRN Q4HRS PRN PO PAIN Last administered on at 17:11; Start 12/10/18 at 16:30 Albuterol Sulfate (Ventolin) 2.5 mg PRN Q2HR PRN NEB SHORTNESS OF BREATH; Start 12/10/18 at 17:00; Stop 12/12/18 at 16:45; Status DC Clonidine HCl (Catapres) 0.1 mg BID PO Last administered on 12/18/18at 19:43; Start 12/10/18 at 21:00 Diclofenac Sodium (Voltaren) 100 popeye TID TP Last administered on 12/15/18at 19:51 ; Start 12/10/18 at 21:00; Stop 12/15/18 at 19:53; Status DC Guaifenesin (MUCINEX ER with DM) 1 tab BID PO Last administered on 12/18/18 19: 43; Start 12/10/18 at 21:00 Ipratropium [place] (Atrovent) 0.2 mg [id number] IH ; Start 12/10/18 at 17:00; Stop 12/10/18 at 17:29; Status DC Milnacipran HCl (Savella) 100 mg BID PO Last administered on 12/18/18 19:46; Start 12/10/18 at 21:00 Nitroglycerin (Nitrostat) 0.4 mg PRN Q5MIN PRN SL CHEST PAIN; Start 12/10/18 at 17:00 Tramadol HCl (Ultram) 50 mg PRN Q6HRS PRN PO PAIN Last administered on 06:34; Start 12/10/18 at 17:00 Buspirone HCl (Buspar) 15 mg BID PO Last administered on 12/17/18 07:42; Start 12/10/18 at 21:00; Stop 12/17/18 at 18:31; Status DC Carvedilol (Coreg) 12.5 mg BIDWMEALS PO Last administered on 12/18/18 17:11; Start 12/10/18 at 17:00 Vitamin D (Vitamin D3) 1,000 unit BID PO Last administered on 12/18/18 19:43; Start 12/10/18 at 21:00 Diltiazem HCl (Diltiazem 24hr Cd) 300 mg DAILY PO Last administered on 08:40; Start 12/11/18 at 09:00 Duloxetine HCl (Cymbalta) 30 mg DAILY PO Last administered on 12/14/18 08:04; Start 12/11/18 at 09:00; Stop 12/14/18 at 18:43; Status DC Furosemide (Lasix) 60 mg DAILY PO ; Start 12/11/18 at 09:00; Stop 12/11/18 at 09 :00; Status DC Gabapentin (Neurontin) 900 mg BID PO Last administered on 12/18/18 19:45; Start 12/10/18 at 21:00 Hydralazine HCl (Apresoline) 50 mg Q8HRS PO Last administered on 12/18/18 21:44 ; Start 12/10/18 at 22:00 Insulin Human Lispro (HumaLOG) 18 units TIDBFRMEAL SQ Last administered on 12/14at 12:27; Start 12/11/18 at 07:30; Stop 12/15/18 at 16:44; Status DC Insulin Glargine (Lantus) 32 units QHS SQ Last administered on 12/18/18at 19:46; Start 12/10/18 at 21:00 Non-Formulary Medication (Levalbuterol Hcl (Xopenex)) 1.25 mg QID IH ; Start at 17:00; Stop 12/10/18 at 17:28; Status DC Losartan Potassium (Cozaar) 100 mg DAILY PO ; Start 12/11/18 at 09:00; Stop at 09:00; Status DC Multivitamins/ Calcium (Thera-M Plus) 1 tab DAILY PO Last administered on at 08:40; Start 12/11/18 at 09:00 Ondansetron HCl (Zofran Odt) 4 mg PRN Q8HRS PRN PO NAUSEA/VOMITING; Start 12/10 at 17:30 Pantoprazole Sodium (Protonix) 40 mg DAILYAC PO Last administered on 12/18/18 08:40; Start 12/11/18 at 07:30 Polyethylene Glycol (miraLAX) 17 gm DAILY PO Last administered on 12/18/18at 08: 40; Start 12/11/18 at 09:00 Non-Formulary Medication (Ropinirole Hcl (Requip Xl)) 6 mg DAILY PO ; Start at 09:00; Stop 12/11/18 at 09:00; Status DC Non-Formulary Medication (Umeclidinium Brm/Vilanterol Tr (Anoro Ellipta 62.5-25 Mcg Inh)) 1 each 1puff IH ; Start 12/10/18 at 17:00; Stop 12/10/18 at 17:30; Status DC Multi-Ingredient Ointment (Analgesic [place]) 1 popeye PRN QID PRN TP MUSCLE PAIN Last administered on 12/18/18at 21:43; Start 12/10/18 at 17:00 Al Hydroxide/Mg Hydroxide (Mylanta Plus Xs) 15 ml PRN AFTMEALHC PRN PO DYSPEPSIA; Start 12/10/18 at 17:00 Magnesium Hydroxide (Milk Of Magnesia) 2,400 mg PRN QHS PRN PO CONSTIPATION; Start 12/10/18 at 17:00 Albuterol Sulfate (Ventolin) 2.5 mg RTQID NEB Last administered on 12/12/18 09 :58; Start 12/10/18 at 20:00; Stop 12/12/18 at 11:08; Status DC Budesonide (Pulmicort) 0.5 mg RTBID NEB Last administered on 12/11/18 22:00; Start 12/10/18 at 20:00; Stop 12/12/18 at 16:45; Status DC Ipratropium [place] (Atrovent) 0.25 mg [id number] NEB Last administered on 10:04; Start 12/10/18 at 20:00; Stop 12/12/18 at 11:08; Status DC Furosemide (Lasix) 40 mg DAILY PO Last administered on 12/18/18 08:40; Start at 09:00 Non-Formulary Medication (Ropinirole Hcl (Requip Xl)) 6 mg QHS PO ; Start at 21:00; Stop 12/12/18 at 18:00; Status DC Quetiapine Fumarate (SEROquel) 12.5 mg 0900,1700 PO Last administered on 17:57; Start 12/12/18 at 09:00; Stop 12/14/18 at 18:43; Status DC Vitamin D (Vitamin D3) 50,000 unit WEEKLY PO Last administered on 12/18/18 08: 44; Start 12/11/18 at 19:30 Albuterol/ Ipratropium (Duoneb) 3 ml RTQID NEB Last administered on 12/18/18 20 :00; Start 12/12/18 at 12:00 Ropinirole HCl (Requip) 2 mg TID PO Last administered on 12/18/18 19:43; Start 12/12/18 at 21:00 Glucose (Insta-Glucose) 15 gm STK-MED ONCE .ROUTE Last administered on 16:56; Start 12/14/18 at 16:56; Stop 12/14/18 at 16:57; Status DC Dextrose 25 gm STK-MED ONCE IV ; Start 12/14/18 at 17:09; Stop 12/14/18 at 17:10 ; Status DC Glucose (Insta-Glucose) 15 gm STK-MED ONCE .ROUTE Last administered on at 17:09; Start 12/14/18 at 17:09; Stop 12/14/18 at 17:10; Status DC Duloxetine HCl (Cymbalta) 60 mg DAILY PO Last administered on 12/15/18 08:30; Start 12/15/18 at 09:00; Stop 12/16/18 at 00:35; Status DC Olanzapine (ZyPREXA ZYDIS) 2.5 mg PRN Q2HR PRN PO ANXIETY / AGITATION; Start at 18:45 Albuterol/ Ipratropium (Duoneb) 3 ml 1X ONCE NEB Last administered on 01:22; Start 12/15/18 at 01:30; Stop 12/15/18 at 01:31; Status DC Insulin Human Lispro (HumaLOG) 14 units TIDBFRMEAL SQ Last administered on 12:53; Start 12/16/18 at 07:30 Buspirone HCl (Buspar) 10 mg DAILY@1400 PO Last administered on 12/17/18 13:30 ; Start 12/16/18 at 14:00; Stop 12/17/18 at 18:31; Status DC Diclofenac Sodium (Voltaren) 1 popeye TID TP Last administered on 12/18/18 13:41; Start 12/16/18 at 09:00 Apixaban (Eliquis) 5 mg BID PO Last administered on 12/18/18 19:43; Start at 21:00 Iohexol (Omnipaque 350 Mg/ml) 100 ml 1X ONCE IV Last administered on 12/16/18 18:45; Start 12/16/18 at 17:15; Stop 12/16/18 at 17:17; Status DC Buspirone HCl (Buspar) 15 mg TID PO Last administered on 12/18/18 19:43; Start 12/17/18 at 21:00 Trazodone HCl (Desyrel) 50 mg PRN QHS PRN PO INSOMNIA, MAY REPEAT X1; Start 12/17/18 at 18:45 Divalproex Sodium (Depakote Sprinkles) 125 mg BIDWMEALS PO Last administered on 12/18/18at 17:11; Start 12/18/18 at 17:00 Active Scripts Active Reported Zofran (Ondansetron Hcl) 4 Mg Tablet 4 Mg PO Q8HRS PRN Voltaren (Diclofenac Sodium) 100 Gm Gel..gram. 100 Gm TP TID Vitamin D (Cholecalciferol (Vitamin D3)) 1,000 Unit Capsule 1,000 Unit PO BID Tramadol Hcl (Tramadol HCl) 50 Mg Tablet 50 Mg PO PRN Q6HRS PRN Diltiazem 24Hr ER (Diltiazem HCl) 300 Mg Tab.er.24h 300 Mg PO DAILY [facility] Tablet (Multivits-Min/Fa/Lycopene/Lut) 1 Each Tablet 1 Each PO DAILY Savella (Milnacipran Hcl) 50 Mg Tablet 100 Mg PO BID Requip Xl (Ropinirole Hcl) 6 Mg Tab.er.24h 6 Mg PO DAILY Protonix (Pantoprazole Sodium) 40 Mg Tablet.dr 40 Mg PO DAILY06 Miralax (Polyethylene Glycol 3350) 17 Gm Powd.pack 17 Gm PO DAILY Novolog (Insulin Aspart) 100 Unit/1 Ml Vial 18 Unit SQ TIDBFRMEAL NITROGLYCERIN SubLingual (Nitroglycerin) 0.4 Mg Tab.subl 0.4 Mg SL PRN Q5MIN PRN Mucinex Dm Er 600-30 Mg Tablet (Guaifenesin/Dextromethorphan) 1 Each Tab.er.12h 1 Each PO BID Levemir (Insulin Detemir) 100 Unit/1 Ml Vial 32 Unit SQ QHS Xopenex (Levalbuterol Hcl) 1.25 Mg/3 Ml Vial.neb 1.25 Mg IH QID Lasix (Furosemide) 80 Mg Tablet 60 Mg PO DAILY Ipratropium [place] 0.2 Mg/1 Ml Solution 0.2 Mg IH [id number] Hydralazine Hcl 50 Mg Tablet 50 Mg PO Q8HRS Gabapentin 600 Mg Tablet 900 Mg PO BID Cymbalta (Duloxetine Hcl) 30 Mg Capsule.dr 30 Mg PO DAILY Cozaar (Losartan Potassium) 100 Mg Tablet 100 Mg PO DAILY Coreg (Carvedilol) 25 Mg Tablet 12.5 Mg PO BIDWMEALS Clonidine Hcl 0.1 Mg Tablet 0.1 Mg PO BID Buspirone Hcl 15 Mg Tablet 15 Mg PO BID Eliquis (Apixaban) 5 Mg Tab.ds.pk 5 Mg PO BID Anoro Ellipta 62.5-25 Mcg Inh (Umeclidinium Brm/Vilanterol Tr) 1 Each Disk.w.dev 1 Each IH 1PUFF Albuterol Sulfate Neb Soln (Albuterol Sulfate) 2.5 Mg/3 Ml Vial.neb 2.5 Mg NEB Q2HR PRN I have reviewed the current psychotropics carefully including drug interactions. Risk benefit ratio favors no change other than as noted in my dictated progress note. Diagnosis: Problems: (1) Hypomagnesemia (2) Morbid obesity (3) Anemia (4) Renal insufficiency (5) Behavioral problem (6) Medical clearance for psychiatric admission (7) Anxiety disorder (8) Impulse control disorder (9) Major depressive disorder, recurrent episode YULIA DAN MD Dec 18, 2018 22:41
[2018-12-19] MEDS: traZODone 50 MG TABLET. PO PRN ×2 (00:12→20:55)
[2018-12-19] MEDS: traMADol 50 MG TABLET PO PRN (02:25)
[2018-12-19 05:37] VITALS: BP 135/67
[2018-12-19] MEDS: PANTOPRAZOLE 40 MG TABLET. PO SCH ×2 (06:44→08:01)
[2018-12-19] MEDS: MILNACIPRAN 50 MG TABLET PO SCH ×2 (08:00→20:54)
[2018-12-19] MEDS: APIXABAN 5 MG TABLET. PO SCH ×2 (08:00→20:54)
[2018-12-19] MEDS: POLYETHYLENE GLYCOL 3350 17 GM PACKET. PO SCH (08:00)
[2018-12-19] MEDS: DIVALPROEX 125 MG CAP.SPRINK PO SCH ×2 (08:00→18:04)
[2018-12-19] MEDS: cloNIDine HCL 0.1 MG TABLET PO SCH ×2 (08:01→20:54)
[2018-12-19] MEDS: guaiFENesin DM 600/30MG 1 TAB TAB.ER.12H PO SCH ×2 (08:01→20:54)
[2018-12-19] MEDS: CARVEDILOL 12.5 MG TABLET PO SCH ×2 (08:01→18:04)
[2018-12-19] MEDS: FUROSEMIDE 40 MG TABLET PO SCH (08:01)
[2018-12-19] MEDS: rOPINIRole 2 MG TABLET. PO SCH ×3 (08:01→20:54)
[2018-12-19] MEDS: MULTIVITAMIN with MINERAL TABLET. PO SCH (08:01)
[2018-12-19] MEDS: busPIRone 15 MG TABLET. PO SCH ×3 (08:02→20:54)
[2018-12-19] MEDS: CHOLECALCIFEROL (VITAMIN D3) 1,000 UNIT TABLET PO SCH ×2 (08:02→20:54)
[2018-12-19] MEDS: INSULIN LISPRO 300 UNITS/3 ML INSULN.PEN. SQ SCH ×3 (08:03→16:30)
[2018-12-19] MEDS: DICLOFENAC SODIUM 1% TOPICAL GEL 100GM TUBE. TP SCH ×3 (08:04→20:52)
[2018-12-19] MEDS: GABAPENTIN 300 MG CAPSULE. PO SCH ×2 (08:04→20:54)
[2018-12-19] MEDS: oxyCODONE IR 5 MG TABLET PO PRN ×2 (09:21→18:04)
[2018-12-19] MEDS: IPRATRPIUM/ALBUTEROL 0.5/2.5MG 3 ML NEBU. NEB SCH ×3 (10:45→20:45)
--- NOTE | 2018-12-19 11:26 | NUR ---
Behavior Intervention Response and Plan: BIRP Note: Behavior: Assumed Care of patient, patient located in Day Room at shift change. Patient exhibited the following behavior Disorganized, Attention Seeking, Demanding. Brief assessment on rounds of vital signs, medication needs, lab studies, and pain. Treatment plan problems 1 & 2. Intervention: Patient assessed and the following interventions initiated safety checks 15 Minute Checks Cognitive Assessment , Head to toe Assessment , Medications. Response: After interactions and interventions patient responded in the following manner, Calm , Compulsive ,Compliant. Continue to assess behaviors and condition will continue to monitor throughout the shift as needed. Patient educated on ADL's, and hand hygiene. 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 Continue to assess patient for changes in above assessment. Monitor for medication needs, pain, and safety concerns. Hourly rounding performed to ensure safe environment.
--- NOTE | 2018-12-19 13:57 | NUR ---
SW faxed over psychiatry and nursing notes, as well as pt medication list for concurrent review and continued stay to [facility]. SW should review either an approval/denial on pt by the end of the day.
[2018-12-19 16:29] VITALS: BP 117/66
--- NOTE | 2018-12-19 18:23 | PN ---
DATE: 12/17/2018 PSYCHIATRIC PROGRESS NOTE This late entry 12/17/2018 covers elements not covered in my initial note. SUBJECTIVE: I met with the patient in the evening. The patient slept 6-1/4 hours previous night. She remains somewhat anxious, restless, labile in her mood, but less irritable. REVIEW OF SYSTEMS: Ambulation impaired, in wheelchair. No CV, , pulmonary, eye, ENT system symptoms on review, does complain of pedal edema in lower extremity. MENTAL STATUS EXAM: Oriented reasonably. Speech coherent, rapid at times, repetitive, abstraction fair, computation impaired, language function intact, attention span short. Mood and affect still labile, anxious. LABORATORY DATA: Reviewed. IMPRESSION: Unchanged from initial note. PLAN: No change from initial note, but we will increase the 2:00 p.m. BuSpar from 10 mg to 15 mg, making it 15 mg t.i.d. and use trazodone p.r.n. for insomnia. Maintain Savella and gabapentin unchanged. YULIA DAN MD DR: HEATHER/kika JOB#: [id number] / [id number]
--- NOTE | 2018-12-19 18:46 | NUR ---
pt up in [place] for meals. has been attention seeking at times. c/o pain x2 oxycodone x2. has been compliant with meds thus far.
[2018-12-19] MEDS: METHYL SALICYLATE/MENTHOL TOPICAL OINTMENT 29GM TUBE. TP PRN (20:55)
[2018-12-19] MEDS: INSULIN GLARGINE 300 UNITS/3 ML INSULN.PEN. SQ SCH (20:56)
--- NOTE | 2018-12-19 21:00 | NUR ---
Behavior Intervention Response and Plan: BIRP Note: Behavior: Assumed Care of patient, patient located in Patient Room at shift change. Patient exhibited the following behavior Interactive, Compliant, Somatic. Brief assessment on rounds of vital signs, medication needs, lab studies, and pain. Treatment plan problems . Intervention: Patient assessed and the following interventions initiated safety checks 15 Minute Checks Cognitive Assessment , Head to toe Assessment , Medications. Response: After interactions and interventions patient responded in the following manner, Interactive , Attention Seeking ,Somatic. Continue to assess behaviors and condition will continue to monitor throughout the shift as needed. Patient educated on ADL's, and hand hygiene. 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 Continue to assess patient for changes in above assessment. Monitor for medication needs, pain, and safety concerns. Hourly rounding performed to ensure safe environment.
--- NOTE | 2018-12-19 22:37 | PDOC ---
Exam Note: [place] Note: Please also refer to the separate dictated note~for this date of service dictated separately.~Patient seen individually. Discussed the patient with Nursing staff reviewed the chart.~Reviewed interim history and current functioning. Reviewed vital signs,~Labs/ Radiology~and current medications noted below. Continue current treatment with the changes noted in the dictated addendum note Assessment: Vital Signs: Vital Signs Date Time Temp Pulse Resp B/P (MAP) Pulse Ox O2 Delivery O2 Flow Rate FiO2 12/19/18 21:32 Nasal Cannula 3.0 12/19/18 20:54 74 117/66 12/19/18 20:45 96 12/19/18 16:29 97.3 16 I&O Intake and Output 12/19/18 07:00 Intake Total 960 ml Balance 960 ml Intake Oral 960 ml # Bowel Movements 1 Labs: Laboratory Tests Test 12/19/18 07:11 12/19/18 11:43 12/19/18 17:03 12/19/18 19:15 Glucose (Fingerstick) 124 mg/dL (70-99) H 109 mg/dL (70-99) H 105 mg/dL (70-99) H 196 mg/dL (70-99) H Current Medications: Meds: Current Medications Magnesium Oxide (Magnesium Oxide) 400 mg 1X ONCE PO Last administered on at 14:22; Start 12/10/18 at 14:30; Stop 12/10/18 at 14:32; Status DC Oxycodone HCl (Roxicodone) 5 mg PRN Q4HRS PRN PO PAIN Last administered on at 18:04; Start 12/10/18 at 16:30 Albuterol Sulfate (Ventolin) 2.5 mg PRN Q2HR PRN NEB SHORTNESS OF BREATH; Start 12/10/18 at 17:00; Stop 12/12/18 at 16:45; Status DC Clonidine HCl (Catapres) 0.1 mg BID PO Last administered on 12/19/18at 20:54; Start 12/10/18 at 21:00 Diclofenac Sodium (Voltaren) 100 popeye TID TP Last administered on 12/15/18at 19:51 ; Start 12/10/18 at 21:00; Stop 12/15/18 at 19:53; Status DC Guaifenesin (MUCINEX ER with DM) 1 tab BID PO Last administered on 12/19/18 20: 54; Start 12/10/18 at 21:00 Ipratropium [place] (Atrovent) 0.2 mg [id number] IH ; Start 12/10/18 at 17:00; Stop 12/10/18 at 17:29; Status DC Milnacipran HCl (Savella) 100 mg BID PO Last administered on 12/19/18 20:54; Start 12/10/18 at 21:00 Nitroglycerin (Nitrostat) 0.4 mg PRN Q5MIN PRN SL CHEST PAIN; Start 12/10/18 at 17:00 Tramadol HCl (Ultram) 50 mg PRN Q6HRS PRN PO PAIN Last administered on 02:25; Start 12/10/18 at 17:00 Buspirone HCl (Buspar) 15 mg BID PO Last administered on 12/17/18 07:42; Start 12/10/18 at 21:00; Stop 12/17/18 at 18:31; Status DC Carvedilol (Coreg) 12.5 mg BIDWMEALS PO Last administered on 12/19/18 18:04; Start 12/10/18 at 17:00 Vitamin D (Vitamin D3) 1,000 unit BID PO Last administered on 12/19/18 20:54; Start 12/10/18 at 21:00 Diltiazem HCl (Diltiazem 24hr Cd) 300 mg DAILY PO Last administered on 08:01; Start 12/11/18 at 09:00 Duloxetine HCl (Cymbalta) 30 mg DAILY PO Last administered on 12/14/18 08:04; Start 12/11/18 at 09:00; Stop 12/14/18 at 18:43; Status DC Furosemide (Lasix) 60 mg DAILY PO ; Start 12/11/18 at 09:00; Stop 12/11/18 at 09 :00; Status DC Gabapentin (Neurontin) 900 mg BID PO Last administered on 12/19/18 20:54; Start 12/10/18 at 21:00 Hydralazine HCl (Apresoline) 50 mg Q8HRS PO Last administered on 12/19/18 20:54 ; Start 12/10/18 at 22:00 Insulin Human Lispro (HumaLOG) 18 units TIDBFRMEAL SQ Last administered on 12/14at 12:27; Start 12/11/18 at 07:30; Stop 12/15/18 at 16:44; Status DC Insulin Glargine (Lantus) 32 units QHS SQ Last administered on 12/19/18at 20:56; Start 12/10/18 at 21:00 Non-Formulary Medication (Levalbuterol Hcl (Xopenex)) 1.25 mg QID IH ; Start at 17:00; Stop 12/10/18 at 17:28; Status DC Losartan Potassium (Cozaar) 100 mg DAILY PO ; Start 12/11/18 at 09:00; Stop at 09:00; Status DC Multivitamins/ Calcium (Thera-M Plus) 1 tab DAILY PO Last administered on at 08:01; Start 12/11/18 at 09:00 Ondansetron HCl (Zofran Odt) 4 mg PRN Q8HRS PRN PO NAUSEA/VOMITING; Start 12/10 at 17:30 Pantoprazole Sodium (Protonix) 40 mg DAILYAC PO Last administered on 12/19/18 08:01; Start 12/11/18 at 07:30 Polyethylene Glycol (miraLAX) 17 gm DAILY PO Last administered on 12/19/18at 08: 00; Start 12/11/18 at 09:00 Non-Formulary Medication (Ropinirole Hcl (Requip Xl)) 6 mg DAILY PO ; Start at 09:00; Stop 12/11/18 at 09:00; Status DC Non-Formulary Medication (Umeclidinium Brm/Vilanterol Tr (Anoro Ellipta 62.5-25 Mcg Inh)) 1 each 1puff IH ; Start 12/10/18 at 17:00; Stop 12/10/18 at 17:30; Status DC Multi-Ingredient Ointment (Analgesic [place]) 1 popeye PRN QID PRN TP MUSCLE PAIN Last administered on 12/19/18at 20:55; Start 12/10/18 at 17:00 Al Hydroxide/Mg Hydroxide (Mylanta Plus Xs) 15 ml PRN AFTMEALHC PRN PO DYSPEPSIA; Start 12/10/18 at 17:00 Magnesium Hydroxide (Milk Of Magnesia) 2,400 mg PRN QHS PRN PO CONSTIPATION; Start 12/10/18 at 17:00 Albuterol Sulfate (Ventolin) 2.5 mg RTQID NEB Last administered on 12/12/18 09 :58; Start 12/10/18 at 20:00; Stop 12/12/18 at 11:08; Status DC Budesonide (Pulmicort) 0.5 mg RTBID NEB Last administered on 12/11/18 22:00; Start 12/10/18 at 20:00; Stop 12/12/18 at 16:45; Status DC Ipratropium [place] (Atrovent) 0.25 mg [id number] NEB Last administered on 10:04; Start 12/10/18 at 20:00; Stop 12/12/18 at 11:08; Status DC Furosemide (Lasix) 40 mg DAILY PO Last administered on 12/19/18 08:01; Start at 09:00 Non-Formulary Medication (Ropinirole Hcl (Requip Xl)) 6 mg QHS PO ; Start at 21:00; Stop 12/12/18 at 18:00; Status DC Quetiapine Fumarate (SEROquel) 12.5 mg 0900,1700 PO Last administered on 17:57; Start 12/12/18 at 09:00; Stop 12/14/18 at 18:43; Status DC Vitamin D (Vitamin D3) 50,000 unit WEEKLY PO Last administered on 12/18/18 08: 44; Start 12/11/18 at 19:30 Albuterol/ Ipratropium (Duoneb) 3 ml RTQID NEB Last administered on 12/19/18 20 :45; Start 12/12/18 at 12:00 Ropinirole HCl (Requip) 2 mg TID PO Last administered on 12/19/18 20:54; Start 12/12/18 at 21:00 Glucose (Insta-Glucose) 15 gm STK-MED ONCE .ROUTE Last administered on 16:56; Start 12/14/18 at 16:56; Stop 12/14/18 at 16:57; Status DC Dextrose 25 gm STK-MED ONCE IV ; Start 12/14/18 at 17:09; Stop 12/14/18 at 17:10 ; Status DC Glucose (Insta-Glucose) 15 gm STK-MED ONCE .ROUTE Last administered on 17:09; Start 12/14/18 at 17:09; Stop 12/14/18 at 17:10; Status DC Duloxetine HCl (Cymbalta) 60 mg DAILY PO Last administered on 12/15/18at 08:30; Start 12/15/18 at 09:00; Stop 12/16/18 at 00:35; Status DC Olanzapine (ZyPREXA ZYDIS) 2.5 mg PRN Q2HR PRN PO ANXIETY / AGITATION; Start at 18:45 Albuterol/ Ipratropium (Duoneb) 3 ml 1X ONCE NEB Last administered on 01:22; Start 12/15/18 at 01:30; Stop 12/15/18 at 01:31; Status DC Insulin Human Lispro (HumaLOG) 14 units TIDBFRMEAL SQ Last administered on 16:30; Start 12/16/18 at 07:30 Buspirone HCl (Buspar) 10 mg DAILY@1400 PO Last administered on 12/17/18 13:30 ; Start 12/16/18 at 14:00; Stop 12/17/18 at 18:31; Status DC Diclofenac Sodium (Voltaren) 1 popeye TID TP Last administered on 12/19/18 13:18; Start 12/16/18 at 09:00 Apixaban (Eliquis) 5 mg BID PO Last administered on 12/19/18 20:54; Start at 21:00 Iohexol (Omnipaque 350 Mg/ml) 100 ml 1X ONCE IV Last administered on 12/16/18 18:45; Start 12/16/18 at 17:15; Stop 12/16/18 at 17:17; Status DC Buspirone HCl (Buspar) 15 mg TID PO Last administered on 12/19/18 20:54; Start 12/17/18 at 21:00 Trazodone HCl (Desyrel) 50 mg PRN QHS PRN PO INSOMNIA, MAY REPEAT X1 Last administered on 12/19/18at 20:55; Start 12/17/18 at 18:45 Divalproex Sodium (Depakote Sprinkles) 125 mg BIDWMEALS PO Last administered on 12/19/18at 18:04; Start 12/18/18 at 17:00 Active Scripts Active Reported Zofran (Ondansetron Hcl) 4 Mg Tablet 4 Mg PO Q8HRS PRN Voltaren (Diclofenac Sodium) 100 Gm Gel..gram. 100 Gm TP TID Vitamin D (Cholecalciferol (Vitamin D3)) 1,000 Unit Capsule 1,000 Unit PO BID Tramadol Hcl (Tramadol HCl) 50 Mg Tablet 50 Mg PO PRN Q6HRS PRN Diltiazem 24Hr ER (Diltiazem HCl) 300 Mg Tab.er.24h 300 Mg PO DAILY [facility] Tablet (Multivits-Min/Fa/Lycopene/Lut) 1 Each Tablet 1 Each PO DAILY [place]ella (Milnacipran Hcl) 50 Mg Tablet 100 Mg PO BID Requip Xl (Ropinirole Hcl) 6 Mg Tab.er.24h 6 Mg PO DAILY Protonix (Pantoprazole Sodium) 40 Mg Tablet.dr 40 Mg PO DAILY06 Miralax (Polyethylene Glycol 3350) 17 Gm Powd.pack 17 Gm PO DAILY Novolog (Insulin Aspart) 100 Unit/1 Ml Vial 18 Unit SQ TIDBFRMEAL NITROGLYCERIN SubLingual (Nitroglycerin) 0.4 Mg Tab.subl 0.4 Mg SL PRN Q5MIN PRN Mucinex Dm Er 600-30 Mg Tablet (Guaifenesin/Dextromethorphan) 1 Each Tab.er.12h 1 Each PO BID Levemir (Insulin Detemir) 100 Unit/1 Ml Vial 32 Unit SQ QHS Xopenex (Levalbuterol Hcl) 1.25 Mg/3 Ml Vial.neb 1.25 Mg IH QID Lasix (Furosemide) 80 Mg Tablet 60 Mg PO DAILY Ipratropium [place] 0.2 Mg/1 Ml Solution 0.2 Mg IH [id number] Hydralazine Hcl 50 Mg Tablet 50 Mg PO Q8HRS Gabapentin 600 Mg Tablet 900 Mg PO BID Cymbalta (Duloxetine Hcl) 30 Mg Capsule.dr 30 Mg PO DAILY Cozaar (Losartan Potassium) 100 Mg Tablet 100 Mg PO DAILY Coreg (Carvedilol) 25 Mg Tablet 12.5 Mg PO BIDWMEALS Clonidine Hcl 0.1 Mg Tablet 0.1 Mg PO BID Buspirone Hcl 15 Mg Tablet 15 Mg PO BID Eliquis (Apixaban) 5 Mg Tab.ds.pk 5 Mg PO BID Anoro Ellipta 62.5-25 Mcg Inh (Umeclidinium Brm/Vilanterol Tr) 1 Each Disk.w.dev 1 Each IH 1PUFF Albuterol Sulfate Neb Soln (Albuterol Sulfate) 2.5 Mg/3 Ml Vial.neb 2.5 Mg NEB Q2HR PRN I have reviewed the current psychotropics carefully including drug interactions. Risk benefit ratio favors no change other than as noted in my dictated progress note. Diagnosis: Problems: (1) Hypomagnesemia (2) Morbid obesity (3) Anemia (4) Renal insufficiency (5) Behavioral problem (6) Medical clearance for psychiatric admission (7) Anxiety disorder (8) Impulse control disorder (9) Major depressive disorder, recurrent episode YULIA DAN MD Dec 19, 2018 22:37
--- NOTE | 2018-12-19 23:25 | PN ---
DATE: 12/18/2018 PSYCHIATRIC PROGRESS NOTE This late entry 12/18/2018 covers elements not covered in my initial note. SUBJECTIVE: Met with the patient in the evening, staffed at a treatment team meeting with the entire team in the morning. The patient is sleeping about 6-1/4 hours. Appetite 75%, anxious, repetitive, somewhat obsessive, questioning her medications, slapped the medications out of the hand of nursing staff on one occasion, noncompliant with fluid restrictions. REVIEW OF SYSTEMS: Shortness of breath, on O2 supplements. Ambulation is impaired, in wheelchair. No CV, GI, system symptoms on review. MENTAL STATUS EXAM: Oriented to herself and situation. Speech is coherent, somewhat rapid, pressured at times. Abstraction is fair, computation impaired, language function intact, attention span short. Mood and affect remained somewhat anxious, labile. LABORATORY DATA: Reviewed. IMPRESSION: Unchanged from initial note. PLAN: No change from initial note. YULIA DAN MD DR: HEATHER/kika JOB#: [id number] / [id number]
[2018-12-20] MEDS: oxyCODONE IR 5 MG TABLET PO PRN ×3 (01:20→20:48)
[2018-12-20] MEDS: IPRATRPIUM/ALBUTEROL 0.5/2.5MG 3 ML NEBU. NEB SCH ×4 (05:30→20:00)
[2018-12-20 06:07] VITALS: BP 122/75
[2018-12-20] MEDS: POLYETHYLENE GLYCOL 3350 17 GM PACKET. PO SCH (07:53)
[2018-12-20] MEDS: MULTIVITAMIN with MINERAL TABLET. PO SCH (07:54)
[2018-12-20] MEDS: FUROSEMIDE 40 MG TABLET PO SCH (07:54)
[2018-12-20] MEDS: DIVALPROEX 125 MG CAP.SPRINK PO SCH ×2 (07:54→16:35)
[2018-12-20] MEDS: CARVEDILOL 12.5 MG TABLET PO SCH ×2 (07:54→16:35)
[2018-12-20] MEDS: APIXABAN 5 MG TABLET. PO SCH ×2 (07:54→20:45)
[2018-12-20] MEDS: guaiFENesin DM 600/30MG 1 TAB TAB.ER.12H PO SCH ×2 (07:54→20:45)
[2018-12-20] MEDS: busPIRone 15 MG TABLET. PO SCH ×3 (07:54→20:45)
[2018-12-20] MEDS: rOPINIRole 2 MG TABLET. PO SCH ×3 (07:55→20:45)
[2018-12-20] MEDS: cloNIDine HCL 0.1 MG TABLET PO SCH ×2 (07:55→20:45)
[2018-12-20] MEDS: CHOLECALCIFEROL (VITAMIN D3) 1,000 UNIT TABLET PO SCH ×2 (07:56→20:45)
[2018-12-20] MEDS: GABAPENTIN 300 MG CAPSULE. PO SCH ×2 (07:57→20:45)
[2018-12-20] MEDS: MILNACIPRAN 50 MG TABLET PO SCH ×2 (07:58→20:45)
[2018-12-20] MEDS: DICLOFENAC SODIUM 1% TOPICAL GEL 100GM TUBE. TP SCH ×3 (07:59→20:45)
[2018-12-20] MEDS: INSULIN LISPRO 300 UNITS/3 ML INSULN.PEN. SQ SCH ×3 (08:12→18:09)
--- NOTE | 2018-12-20 08:45 | NUR ---
Behavior Intervention Response and Plan: BIRP Note: Behavior: Assumed Care of patient, patient located in Dining Room at shift change. Patient exhibited the following behavior Interactive, Social, Appropriate. Brief assessment on rounds of vital signs, medication needs, lab studies, and pain. Treatment plan problems . Intervention: Patient assessed and the following interventions initiated safety checks 15 Minute Checks Cognitive Assessment , Head to toe Assessment , Medications. Response: After interactions and interventions patient responded in the following manner, Cooperative , Compliant ,Attention Seeking. Continue to assess behaviors and condition will continue to monitor throughout the shift as needed. Patient educated on ADL's, and hand hygiene. Plan: Continue to monitor Master Treatment Plan for patient's progress toward short term goals of Improved Mood, Medication Compliance, medical terminologist goals to return to previous living setting vs placement. Continue to assess patient for changes in above assessment. Monitor for medication needs, pain, and safety concerns. Hourly rounding performed to ensure safe environment.
[2018-12-20 16:54] VITALS: BP 124/70
[2018-12-20] MEDS: traZODone 50 MG TABLET. PO PRN (20:48)
[2018-12-20] MEDS: INSULIN GLARGINE 300 UNITS/3 ML INSULN.PEN. SQ SCH (22:07)
[2018-12-21 05:42] VITALS: BP 131/72
[2018-12-21] MEDS: IPRATRPIUM/ALBUTEROL 0.5/2.5MG 3 ML NEBU. NEB SCH ×4 (05:58→20:16)
[2018-12-21] MEDS: traMADol 50 MG TABLET PO PRN (06:04)
[2018-12-21] MEDS: METHYL SALICYLATE/MENTHOL TOPICAL OINTMENT 29GM TUBE. TP PRN (06:05)
--- NOTE | 2018-12-21 07:23 | OP ---
DATE OF SURGERY: 12/19/2018 PSYCHIATRIC PROGRESS NOTE This late entry, 12/19/2018, covers elements not covered in my initial note. SUBJECTIVE: I met with the patient in the evening. The patient slept 6-1/2 hours previous night. She has been compliant with the medications. Remain somewhat anxious with mood lability, repetitive in her questioning at times and I spent fair amount of time with her educating her on her diagnosis, some symptoms suggestive of cyclothymia and initiation of Depakote to help with this. REVIEW OF SYSTEMS: Shortness of breath on O2 supplements, impaired ambulation, in wheelchair. No CV, GI, , eye system symptoms on review. MENTAL STATUS EXAM: Oriented to herself and situation. Speech coherent, rapid at times. Abstraction fair, computation impaired, language function intact, attention span short. Mood and affect remains somewhat anxious, labile. LABORATORY DATA: Reviewed. IMPRESSION: Bipolar 1 disorder, unspecified versus cyclothymia; anxiety disorder, unspecified; history of major depressive disorder; impulse control disorder. Rest unchanged from initial note. PLAN: Start Depakote Sprinkle 125 mg twice a day. Check CBC, CMP, valproic acid level in 3 days. Rest unchanged from initial note. YULIA DAN MD DR: HEATHER/kika JOB#: [id number] / [id number]
[2018-12-21] MEDS: CHOLECALCIFEROL (VITAMIN D3) 1,000 UNIT TABLET PO SCH ×2 (07:52→19:53)
[2018-12-21] MEDS: POLYETHYLENE GLYCOL 3350 17 GM PACKET. PO SCH (07:52)
[2018-12-21] MEDS: rOPINIRole 2 MG TABLET. PO SCH ×3 (07:52→19:52)
[2018-12-21] MEDS: DIVALPROEX 125 MG CAP.SPRINK PO SCH ×2 (07:52→17:29)
[2018-12-21] MEDS: MULTIVITAMIN with MINERAL TABLET. PO SCH (07:52)
[2018-12-21] MEDS: busPIRone 15 MG TABLET. PO SCH ×3 (07:52→19:51)
[2018-12-21] MEDS: guaiFENesin DM 600/30MG 1 TAB TAB.ER.12H PO SCH ×2 (07:53→19:52)
[2018-12-21] MEDS: PANTOPRAZOLE 40 MG TABLET. PO SCH (07:53)
[2018-12-21] MEDS: FUROSEMIDE 40 MG TABLET PO SCH (07:53)
[2018-12-21] MEDS: CARVEDILOL 12.5 MG TABLET PO SCH ×2 (07:53→17:29)
[2018-12-21] MEDS: cloNIDine HCL 0.1 MG TABLET PO SCH ×2 (07:53→19:53)
[2018-12-21] MEDS: APIXABAN 5 MG TABLET. PO SCH ×2 (07:54→19:51)
[2018-12-21] MEDS: oxyCODONE IR 5 MG TABLET PO PRN ×2 (07:55→17:29)
[2018-12-21] MEDS: MILNACIPRAN 50 MG TABLET PO SCH ×2 (07:56→19:53)
[2018-12-21] MEDS: GABAPENTIN 300 MG CAPSULE. PO SCH ×2 (07:56→19:51)
[2018-12-21] MEDS: DICLOFENAC SODIUM 1% TOPICAL GEL 100GM TUBE. TP SCH ×3 (07:57→19:53)
[2018-12-21 07:59] LABS: BASO # 0.1 x10^3/uL (0.0-0.2); BASO % 1 % (0-3); EOS # 0.3 x10^3/uL (0.0-0.7); EOS % 4 % (0-3); HEMATOCRIT 33.9 % (36.0-47.0); HEMOGLOBIN 10.7 g/dL (12.0-15.5); LYMPH # 1.8 x10^3/uL (1.0-4.8); LYMPH % 30 % (24-48); MEAN CORPUSCULAR HEMOGLOBIN 26 pg (25-35); MEAN CORPUSCULAR HGB CONC 32 g/dL (31-37); MEAN CORPUSCULAR VOLUME 83 fL (79-100); MONO # 0.6 x10^3/uL (0.0-1.1); MONO % 9 % (0-9); NEUT # 3.5 x10^3uL (1.8-7.7); NEUT % 56 % (31-73); PLATELET COUNT 356 x10^3/uL (140-400); RED BLOOD COUNT 4.07 x10^6/uL (3.50-5.40); RED CELL DISTRIBUTION WIDTH 17.8 % (11.5-14.5); WHITE BLOOD COUNT 6.2 x10^3/uL (4.0-11.0)
[2018-12-21 08:13] LABS: ALBUMIN 3.1 g/dL (3.4-5.0); ALBUMIN/GLOBULIN RATIO 0.8 (1.0-1.7); ALK PHOS 56 U/L (46-116); ALT (SGPT) 17 U/L (14-59); ANION GAP 3 (6-14); AST (SGOT) 17 U/L (15-37); BLOOD UREA NITROGEN 16 mg/dL (7-20); BUN/CREATININE RATIO 13 (6-20); CALCIUM 9.4 mg/dL (8.5-10.1); CARBON DIOXIDE 38 mmol/L (21-32); CHLORIDE 100 mmol/L (98-107); CREATININE 1.2 mg/dL (0.6-1.0); GFR 45.4; GLUCOSE 131 mg/dL (70-99); POTASSIUM 3.8 mmol/L (3.5-5.1); SODIUM 141 mmol/L (136-145); TOTAL BILIRUBIN 0.3 mg/dL (0.2-1.0)
[2018-12-21 08:19] LABS: VAL ACID 6 mcg/mL (50-100)
[2018-12-21] MEDS: INSULIN LISPRO 300 UNITS/3 ML INSULN.PEN. SQ SCH ×3 (08:22→17:36)
--- NOTE | 2018-12-21 09:46 | PDOC ---
Exam Note: Iban Note: Late entry for DOS 12/20/2018. Please also refer to the separate dictated note~ for this date of service dictated separately.~Patient seen individually. Discussed the patient with Nursing staff reviewed the chart.~Reviewed interim history and current functioning. Reviewed vital signs,~Labs/ Radiology~and current medications noted below. Continue current treatment with the changes noted in the dictated addendum note Assessment: Vital Signs: VS - Last 72 Hours, by Label Date Time Temp Pulse Resp B/P (MAP) Pulse Ox O2 Delivery O2 Flow Rate FiO2 12/21/18 07:55 20 93 12/21/18 07:53 96 131/72 12/21/18 07:53 96 131/72 12/21/18 07:53 96 131/72 12/21/18 07:04 20 93 12/21/18 06:04 96 131/72 12/21/18 06:04 20 Nasal Cannula 3.0 12/21/18 05:59 93 Nasal Cannula 3.0 12/21/18 05:42 99.3 96 20 131/72 (91) 96 12/20/18 22:42 20 3 Nasal Cannula 12/20/18 22:05 80 149/79 12/20/18 21:20 94 Nasal Cannula 3.0 12/20/18 20:48 20 Nasal Cannula 3.0 12/20/18 20:45 78 124/70 12/20/18 16:54 98.1 78 24 124/70 (88) 91 Nasal Cannula 3.0 12/20/18 16:48 96 Nasal Cannula 4.0 12/20/18 16:35 82 122/75 12/20/18 14:26 82 122/75 12/20/18 11:48 20 95 12/20/18 11:00 95 Nasal Cannula 4.0 12/20/18 07:55 82 122/75 12/20/18 07:54 82 122/75 12/20/18 07:54 82 122/75 12/20/18 06:07 97.9 82 22 122/75 (91) 91 Nasal Cannula 3.0 12/20/18 05:53 82 122/75 12/20/18 02:48 3.0 12/20/18 01:20 Room Air 3.0 12/19/18 20:54 74 117/66 12/19/18 20:54 74 117/66 12/19/18 20:45 96 Nasal Cannula 4.0 12/19/18 18:04 74 117/66 12/19/18 17:20 96 Nasal Cannula 4.0 12/19/18 16:29 97.3 74 16 117/66 (83) 90 12/19/18 13:16 82 135/67 12/19/18 10:46 90 Nasal Cannula 4.0 12/19/18 08:01 82 135/67 12/19/18 08:01 82 135/67 12/19/18 08:01 82 135/67 12/19/18 06:44 91 Nasal Cannula 4.0 12/19/18 05:50 82 135/67 12/19/18 05:37 97.3 82 22 135/67 (89) 91 Nasal Cannula 3.0 12/19/18 02:25 20 Nasal Cannula 4.0 12/18/18 21:44 70 117/66 12/18/18 20:49 95 Nasal Cannula 4.0 12/18/18 20:49 95 Nasal Cannula 2.0 12/18/18 19:43 88 125/71 12/18/18 17:11 88 125/71 12/18/18 16:30 95 Nasal Cannula 4.0 12/18/18 16:13 97.6 88 20 125/71 (89) 91 Nasal Cannula 2.0 12/18/18 13:40 74 125/77 12/18/18 10:55 93 Nasal Cannula 2.0 Vital Signs Date Time Temp Pulse Resp B/P (MAP) Pulse Ox O2 Delivery O2 Flow Rate FiO2 12/21/18 07:55 20 93 12/21/18 07:53 96 131/72 12/21/18 06:04 Nasal Cannula 3.0 12/21/18 05:42 99.3 I&O Intake and Output 12/21/18 06:59 Intake Total 1140 ml Balance 1140 ml Intake Oral 1140 ml Labs: Laboratory Tests Test 12/20/18 11:35 12/20/18 16:43 12/20/18 19:59 12/21/18 07:34 Glucose (Fingerstick) 156 mg/dL (70-99) H 128 mg/dL (70-99) H 124 mg/dL (70-99) H White Blood Count 6.2 x10^3/uL (4.0-11.0) Red Blood Count 4.07 x10^6/uL (3.50-5.40) Hemoglobin 10.7 g/dL (12.0-15.5) L Hematocrit 33.9 % (36.0-47.0) L Mean Corpuscular Volume 83 fL (79-100) Mean Corpuscular Hemoglobin 26 pg (25-35) Mean Corpuscular Hemoglobin Concent 32 g/dL (31-37) Red Cell Distribution Width 17.8 % (11.5-14.5) H Platelet Count 356 x10^3/uL (140-400) Neutrophils (%) (Auto) 56 % (31-73) Lymphocytes (%) (Auto) 30 % (24-48) Monocytes (%) (Auto) 9 % (0-9) Eosinophils (%) (Auto) 4 % (0-3) H Basophils (%) (Auto) 1 % (0-3) Neutrophils # (Auto) 3.5 x10^3uL (1.8-7.7) Lymphocytes # (Auto) 1.8 x10^3/uL (1.0-4.8) Monocytes # (Auto) 0.6 x10^3/uL (0.0-1.1) Eosinophils # (Auto) 0.3 x10^3/uL (0.0-0.7) Basophils # (Auto) 0.1 x10^3/uL (0.0-0.2) Sodium Level 141 mmol/L (136-145) Potassium Level 3.8 mmol/L (3.5-5.1) Chloride Level 100 mmol/L (98-107) Carbon Dioxide Level 38 mmol/L (21-32) H Anion Gap 3 (6-14) L Blood Urea Nitrogen 16 mg/dL (7-20) Creatinine 1.2 mg/dL (0.6-1.0) H Estimated GFR (Cockcroft-Gault) 45.4 BUN/Creatinine Ratio 13 (6-20) Glucose Level 131 mg/dL (70-99) H Calcium Level 9.4 mg/dL (8.5-10.1) Total Bilirubin 0.3 mg/dL (0.2-1.0) Aspartate Amino Transferase (AST) 17 U/L (15-37) Alanine Aminotransferase (ALT) 17 U/L (14-59) Alkaline Phosphatase 56 U/L (46-116) Total Protein 7.0 g/dL (6.4-8.2) Albumin 3.1 g/dL (3.4-5.0) L Albumin/Globulin Ratio 0.8 (1.0-1.7) L Valproic Acid Level 6 mcg/mL (50-100) L Valproic Acid Last Dose Date 12/20/18 Valproic Acid Last Dose Time 1700 Test 12/21/18 07:53 Glucose (Fingerstick) 139 mg/dL (70-99) H Current Medications: Meds: Current Medications Magnesium Oxide (Magnesium Oxide) 400 mg 1X ONCE PO Last administered on at 14:22; Start 12/10/18 at 14:30; Stop 12/10/18 at 14:32; Status DC Oxycodone HCl (Roxicodone) 5 mg PRN Q4HRS PRN PO PAIN Last administered on at 07:55; Start 12/10/18 at 16:30 Albuterol Sulfate (Ventolin) 2.5 mg PRN Q2HR PRN NEB SHORTNESS OF BREATH; Start 12/10/18 at 17:00; Stop 12/12/18 at 16:45; Status DC Clonidine HCl (Catapres) 0.1 mg BID PO Last administered on 12/21/18at 07:53; Start 12/10/18 at 21:00 Diclofenac Sodium (Voltaren) 100 popeye TID TP Last administered on 12/15/18at 19:51 ; Start 12/10/18 at 21:00; Stop 12/15/18 at 19:53; Status DC Guaifenesin (MUCINEX ER with DM) 1 tab BID PO Last administered on 12/21/18at 07: 53; Start 12/10/18 at 21:00 Ipratropium Olds (Atrovent) 0.2 mg [id number] IH ; Start 12/10/18 at 17:00; Stop 12/10/18 at 17:29; Status DC Milnacipran HCl (Savella) 100 mg BID PO Last administered on 12/21/18at 07:56; Start 12/10/18 at 21:00 Nitroglycerin (Nitrostat) 0.4 mg PRN Q5MIN PRN SL CHEST PAIN; Start 12/10/18 at 17:00 Tramadol HCl (Ultram) 50 mg PRN Q6HRS PRN PO PAIN Last administered on 06:04; Start 12/10/18 at 17:00 Buspirone HCl (Buspar) 15 mg BID PO Last administered on 12/17/18 07:42; Start 12/10/18 at 21:00; Stop 12/17/18 at 18:31; Status DC Carvedilol (Coreg) 12.5 mg BIDWMEALS PO Last administered on 12/21/18 07:53; Start 12/10/18 at 17:00 Vitamin D (Vitamin D3) 1,000 unit BID PO Last administered on 12/21/18 07:52; Start 12/10/18 at 21:00 Diltiazem HCl (Diltiazem 24hr Cd) 300 mg DAILY PO Last administered on 07:53; Start 12/11/18 at 09:00 Duloxetine HCl (Cymbalta) 30 mg DAILY PO Last administered on 12/14/18 08:04; Start 12/11/18 at 09:00; Stop 12/14/18 at 18:43; Status DC Furosemide (Lasix) 60 mg DAILY PO ; Start 12/11/18 at 09:00; Stop 12/11/18 at 09 :00; Status DC Gabapentin (Neurontin) 900 mg BID PO Last administered on 12/21/18 07:56; Start 12/10/18 at 21:00 Hydralazine HCl (Apresoline) 50 mg Q8HRS PO Last administered on 12/21/18 06:04 ; Start 12/10/18 at 22:00 Insulin Human Lispro (HumaLOG) 18 units TIDBFRMEAL SQ Last administered on 12/14 12:27; Start 12/11/18 at 07:30; Stop 12/15/18 at 16:44; Status DC Insulin Glargine (Lantus) 32 units QHS SQ Last administered on 12/19/18 20:56; Start 12/10/18 at 21:00; Stop 12/20/18 at 16:12; Status DC Non-Formulary Medication (Levalbuterol Hcl (Xopenex)) 1.25 mg QID IH ; Start at 17:00; Stop 12/10/18 at 17:28; Status DC Losartan Potassium (Cozaar) 100 mg DAILY PO ; Start 12/11/18 at 09:00; Stop at 09:00; Status DC Multivitamins/ Calcium (Thera-M Plus) 1 tab DAILY PO Last administered on at 07:52; Start 12/11/18 at 09:00 Ondansetron HCl (Zofran Odt) 4 mg PRN Q8HRS PRN PO NAUSEA/VOMITING; Start 12/10 at 17:30 Pantoprazole Sodium (Protonix) 40 mg DAILYAC PO Last administered on 12/21/18at 07:53; Start 12/11/18 at 07:30 Polyethylene Glycol (miraLAX) 17 gm DAILY PO Last administered on 12/21/18at 07: 52; Start 12/11/18 at 09:00 Non-Formulary Medication (Ropinirole Hcl (Requip Xl)) 6 mg DAILY PO ; Start at 09:00; Stop 12/11/18 at 09:00; Status DC Non-Formulary Medication (Umeclidinium Brm/Vilanterol Tr (Anoro Ellipta 62.5-25 Mcg Inh)) 1 each 1puff IH ; Start 12/10/18 at 17:00; Stop 12/10/18 at 17:30; Status DC Multi-Ingredient Ointment (Analgesic [place]) 1 popeye PRN QID PRN TP MUSCLE PAIN Last administered on 12/21/18at 06:05; Start 12/10/18 at 17:00 Al Hydroxide/Mg Hydroxide (Mylanta Plus Xs) 15 ml PRN AFTMEALHC PRN PO DYSPEPSIA; Start 12/10/18 at 17:00 Magnesium Hydroxide (Milk Of Magnesia) 2,400 mg PRN QHS PRN PO CONSTIPATION; Start 12/10/18 at 17:00 Albuterol Sulfate (Ventolin) 2.5 mg RTQID NEB Last administered on 12/12/18at 09 :58; Start 12/10/18 at 20:00; Stop 12/12/18 at 11:08; Status DC Budesonide (Pulmicort) 0.5 mg RTBID NEB Last administered on 12/11/18at 22:00; Start 12/10/18 at 20:00; Stop 12/12/18 at 16:45; Status DC Ipratropium Olds (Atrovent) 0.25 mg [id number] NEB Last administered on at 10:04; Start 12/10/18 at 20:00; Stop 12/12/18 at 11:08; Status DC Furosemide (Lasix) 40 mg DAILY PO Last administered on 12/21/18at 07:53; Start at 09:00 Non-Formulary Medication (Ropinirole Hcl (Requip Xl)) 6 mg QHS PO ; Start at 21:00; Stop 12/12/18 at 18:00; Status DC Quetiapine Fumarate (SEROquel) 12.5 mg 0900,1700 PO Last administered on at 17:57; Start 12/12/18 at 09:00; Stop 12/14/18 at 18:43; Status DC Vitamin D (Vitamin D3) 50,000 unit WEEKLY PO Last administered on 12/18/18 08: 44; Start 12/11/18 at 19:30 Albuterol/ Ipratropium (Duoneb) 3 ml RTQID NEB Last administered on 12/21/18at 05 :58; Start 12/12/18 at 12:00 Ropinirole HCl (Requip) 2 mg TID PO Last administered on 12/21/18at 07:52; Start 12/12/18 at 21:00 Glucose (Insta-Glucose) 15 gm STK-MED ONCE .ROUTE Last administered on at 16:56; Start 12/14/18 at 16:56; Stop 12/14/18 at 16:57; Status DC Dextrose 25 gm STK-MED ONCE IV ; Start 12/14/18 at 17:09; Stop 12/14/18 at 17:10 ; Status DC Glucose (Insta-Glucose) 15 gm STK-MED ONCE .ROUTE Last administered on at 17:09; Start 12/14/18 at 17:09; Stop 12/14/18 at 17:10; Status DC Duloxetine HCl (Cymbalta) 60 mg DAILY PO Last administered on 12/15/18 08:30; Start 12/15/18 at 09:00; Stop 12/16/18 at 00:35; Status DC Olanzapine (ZyPREXA ZYDIS) 2.5 mg PRN Q2HR PRN PO ANXIETY / AGITATION; Start at 18:45 Albuterol/ Ipratropium (Duoneb) 3 ml 1X ONCE NEB Last administered on 01:22; Start 12/15/18 at 01:30; Stop 12/15/18 at 01:31; Status DC Insulin Human Lispro (HumaLOG) 14 units TIDBFRMEAL SQ Last administered on 08:22; Start 12/16/18 at 07:30 Buspirone HCl (Buspar) 10 mg DAILY@1400 PO Last administered on 12/17/18 13:30 ; Start 12/16/18 at 14:00; Stop 12/17/18 at 18:31; Status DC Diclofenac Sodium (Voltaren) 1 ppoeye TID TP Last administered on 12/21/18 07:57; Start 12/16/18 at 09:00 Apixaban (Eliquis) 5 mg BID PO Last administered on 12/21/18 07:54; Start at 21:00 Iohexol (Omnipaque 350 Mg/ml) 100 ml 1X ONCE IV Last administered on 12/16/18 18:45; Start 12/16/18 at 17:15; Stop 12/16/18 at 17:17; Status DC Buspirone HCl (Buspar) 15 mg TID PO Last administered on 12/21/18 07:52; Start 12/17/18 at 21:00 Trazodone HCl (Desyrel) 50 mg PRN QHS PRN PO INSOMNIA, MAY REPEAT X1 Last administered on 12/20/18 20:48; Start 12/17/18 at 18:45 Divalproex Sodium (Depakote Sprinkles) 125 mg BIDWMEALS PO Last administered on 12/21/18 07:52; Start 12/18/18 at 17:00 Insulin Glargine (Lantus) 32 units QHS SQ Last administered on 12/20/18 22:07; Start 12/20/18 at 16:12 Active Scripts Active Reported Zofran (Ondansetron Hcl) 4 Mg Tablet 4 Mg PO Q8HRS PRN Voltaren (Diclofenac Sodium) 100 Gm Gel..gram. 100 Gm TP TID Vitamin D (Cholecalciferol (Vitamin D3)) 1,000 Unit Capsule 1,000 Unit PO BID Tramadol Hcl (Tramadol HCl) 50 Mg Tablet 50 Mg PO PRN Q6HRS PRN Diltiazem 24Hr ER (Diltiazem HCl) 300 Mg Tab.er.24h 300 Mg PO DAILY [facility] Senior Tablet (Multivits-Min/Fa/Lycopene/Lut) 1 Each Tablet 1 Each PO DAILY Savella (Milnacipran Hcl) 50 Mg Tablet 100 Mg PO BID Requip Xl (Ropinirole Hcl) 6 Mg Tab.er.24h 6 Mg PO DAILY Protonix (Pantoprazole Sodium) 40 Mg Tablet.dr 40 Mg PO DAILY06 Miralax (Polyethylene Glycol 3350) 17 Gm Powd.pack 17 Gm PO DAILY Novolog (Insulin Aspart) 100 Unit/1 Ml Vial 18 Unit SQ TIDBFRMEAL NITROGLYCERIN SubLingual (Nitroglycerin) 0.4 Mg Tab.subl 0.4 Mg SL PRN Q5MIN PRN Mucinex Dm Er 600-30 Mg Tablet (Guaifenesin/Dextromethorphan) 1 Each Tab.er.12h 1 Each PO BID Levemir (Insulin Detemir) 100 Unit/1 Ml Vial 32 Unit SQ QHS Xopenex (Levalbuterol Hcl) 1.25 Mg/3 Ml Vial.neb 1.25 Mg IH QID Lasix (Furosemide) 80 Mg Tablet 60 Mg PO DAILY Ipratropium Olds 0.2 Mg/1 Ml Solution 0.2 Mg IH [id number] Hydralazine Hcl 50 Mg Tablet 50 Mg PO Q8HRS Gabapentin 600 Mg Tablet 900 Mg PO BID Cymbalta (Duloxetine Hcl) 30 Mg Capsule.dr 30 Mg PO DAILY Cozaar (Losartan Potassium) 100 Mg Tablet 100 Mg PO DAILY Coreg (Carvedilol) 25 Mg Tablet 12.5 Mg PO BIDWMEALS Clonidine Hcl 0.1 Mg Tablet 0.1 Mg PO BID Buspirone Hcl 15 Mg Tablet 15 Mg PO BID Eliquis (Apixaban) 5 Mg Tab.ds.pk 5 Mg PO BID Anoro Ellipta 62.5-25 Mcg Inh (Umeclidinium Brm/Vilanterol Tr) 1 Each Disk.w.dev 1 Each IH [id number] Albuterol Sulfate Neb Soln (Albuterol Sulfate) 2.5 Mg/3 Ml Vial.neb 2.5 Mg NEB Q2HR PRN I have reviewed the current psychotropics carefully including drug interactions. Risk benefit ratio favors no change other than as noted in my dictated progress note. Diagnosis: Problems: (1) Hypomagnesemia (2) Morbid obesity (3) Anemia (4) Renal insufficiency (5) Behavioral problem (6) Medical clearance for psychiatric admission (7) Anxiety disorder (8) Impulse control disorder (9) Major depressive disorder, recurrent episode YULIA DAN MD Dec 21, 2018 09:46
--- NOTE | 2018-12-21 11:14 | NUR ---
Behavior Intervention Response and Plan: BIRP Note: Behavior: Assumed Care of patient, patient located in Dining Room at shift change. Patient exhibited the following behavior Interactive, Social, Appropriate. Brief assessment on rounds of vital signs, medication needs, lab studies, and pain. Treatment plan problems . Intervention: Patient assessed and the following interventions initiated safety checks 15 Minute Checks Cognitive Assessment , Head to toe Assessment , Medications. Response: After interactions and interventions patient responded in the following manner, Cooperative , Compliant ,Attention Seeking. Continue to assess behaviors and condition will continue to monitor throughout the shift as needed. Patient educated on ADL's, and hand hygiene. 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 Continue to assess patient for changes in above assessment. Monitor for medication needs, pain, and safety concerns. Hourly rounding performed to ensure safe environment.
[2018-12-21] MEDS ORDERED: DICLOFENAC SODIUM 1% TOPICAL GEL 100GM TUBE. TP PRN (13:30)
[2018-12-21] MEDS: traZODone 50 MG TABLET. PO PRN (19:51)
[2018-12-21] MEDS: INSULIN GLARGINE 300 UNITS/3 ML INSULN.PEN. SQ SCH ×3 (20:05→21:49)
--- NOTE | 2018-12-21 22:53 | PDOC ---
Exam Note: [place] Note: Please also refer to the separate dictated note~for this date of service dictated separately.~Patient seen individually. Discussed the patient with Nursing staff reviewed the chart.~Reviewed interim history and current functioning. Reviewed vital signs,~Labs/ Radiology~and current medications noted below. Continue current treatment with the changes noted in the dictated addendum note Assessment: Vital Signs: Vital Signs Date Time Temp Pulse Resp B/P (MAP) Pulse Ox O2 Delivery O2 Flow Rate FiO2 12/21/18 20:17 96 Nasal Cannula 4.0 12/21/18 19:53 96 131/72 12/21/18 18:29 18 12/21/18 05:42 99.3 I&O Intake and Output 12/21/18 06:59 Intake Total 1140 ml Balance 1140 ml Intake Oral 1140 ml Labs: Laboratory Tests Test 12/21/18 07:34 12/21/18 07:53 12/21/18 11:42 12/21/18 16:50 White Blood Count 6.2 x10^3/uL (4.0-11.0) Red Blood Count 4.07 x10^6/uL (3.50-5.40) Hemoglobin 10.7 g/dL (12.0-15.5) L Hematocrit 33.9 % (36.0-47.0) L Mean Corpuscular Volume 83 fL (79-100) Mean Corpuscular Hemoglobin 26 pg (25-35) Mean Corpuscular Hemoglobin Concent 32 g/dL (31-37) Red Cell Distribution Width 17.8 % (11.5-14.5) H Platelet Count 356 x10^3/uL (140-400) Neutrophils (%) (Auto) 56 % (31-73) Lymphocytes (%) (Auto) 30 % (24-48) Monocytes (%) (Auto) 9 % (0-9) Eosinophils (%) (Auto) 4 % (0-3) H Basophils (%) (Auto) 1 % (0-3) Neutrophils # (Auto) 3.5 x10^3uL (1.8-7.7) Lymphocytes # (Auto) 1.8 x10^3/uL (1.0-4.8) Monocytes # (Auto) 0.6 x10^3/uL (0.0-1.1) Eosinophils # (Auto) 0.3 x10^3/uL (0.0-0.7) Basophils # (Auto) 0.1 x10^3/uL (0.0-0.2) Sodium Level 141 mmol/L (136-145) Potassium Level 3.8 mmol/L (3.5-5.1) Chloride Level 100 mmol/L (98-107) Carbon Dioxide Level 38 mmol/L (21-32) H Anion Gap 3 (6-14) L Blood Urea Nitrogen 16 mg/dL (7-20) Creatinine 1.2 mg/dL (0.6-1.0) H Estimated GFR (Cockcroft-Gault) 45.4 BUN/Creatinine Ratio 13 (6-20) Glucose Level 131 mg/dL (70-99) H Calcium Level 9.4 mg/dL (8.5-10.1) Total Bilirubin 0.3 mg/dL (0.2-1.0) Aspartate Amino Transferase (AST) 17 U/L (15-37) Alanine Aminotransferase (ALT) 17 U/L (14-59) Alkaline Phosphatase 56 U/L (46-116) Total Protein 7.0 g/dL (6.4-8.2) Albumin 3.1 g/dL (3.4-5.0) L Albumin/Globulin Ratio 0.8 (1.0-1.7) L Valproic Acid Level 6 mcg/mL (50-100) L Valproic Acid Last Dose Date 12/20/18 Valproic Acid Last Dose Time 1700 Glucose (Fingerstick) 139 mg/dL (70-99) H 159 mg/dL (70-99) H 92 mg/dL (70-99) Test 12/21/18 19:16 Glucose (Fingerstick) 78 mg/dL (70-99) Current Medications: Meds: Current Medications Magnesium Oxide (Magnesium Oxide) 400 mg 1X ONCE PO Last administered on at 14:22; Start 12/10/18 at 14:30; Stop 12/10/18 at 14:32; Status DC Oxycodone HCl (Roxicodone) 5 mg PRN Q4HRS PRN PO PAIN Last administered on at 17:29; Start 12/10/18 at 16:30 Albuterol Sulfate (Ventolin) 2.5 mg PRN Q2HR PRN NEB SHORTNESS OF BREATH; Start 12/10/18 at 17:00; Stop 12/12/18 at 16:45; Status DC Clonidine HCl (Catapres) 0.1 mg BID PO Last administered on 12/21/18 19:53; Start 12/10/18 at 21:00 Diclofenac Sodium (Voltaren) 100 popeye TID TP Last administered on 12/15/18 19:51 ; Start 12/10/18 at 21:00; Stop 12/15/18 at 19:53; Status DC Guaifenesin (MUCINEX ER with DM) 1 tab BID PO Last administered on 12/21/18 19: 52; Start 12/10/18 at 21:00 Ipratropium [place] (Atrovent) 0.2 mg [id number] IH ; Start 12/10/18 at 17:00; Stop 12/10/18 at 17:29; Status DC Milnacipran HCl (Savella) 100 mg BID PO Last administered on 12/21/18 19:53; Start 12/10/18 at 21:00 Nitroglycerin (Nitrostat) 0.4 mg PRN Q5MIN PRN SL CHEST PAIN; Start 12/10/18 at 17:00 Tramadol HCl (Ultram) 50 mg PRN Q6HRS PRN PO PAIN Last administered on 06:04; Start 12/10/18 at 17:00 Buspirone HCl (Buspar) 15 mg BID PO Last administered on 12/17/18 07:42; Start 12/10/18 at 21:00; Stop 12/17/18 at 18:31; Status DC Carvedilol (Coreg) 12.5 mg BIDWMEALS PO Last administered on 12/21/18 17:29; Start 12/10/18 at 17:00 Vitamin D (Vitamin D3) 1,000 unit BID PO Last administered on 12/21/18 19:53; Start 12/10/18 at 21:00 Diltiazem HCl (Diltiazem 24hr Cd) 300 mg DAILY PO Last administered on 07:53; Start 12/11/18 at 09:00 Duloxetine HCl (Cymbalta) 30 mg DAILY PO Last administered on 12/14/18 08:04; Start 12/11/18 at 09:00; Stop 12/14/18 at 18:43; Status DC Furosemide (Lasix) 60 mg DAILY PO ; Start 12/11/18 at 09:00; Stop 12/11/18 at 09 :00; Status DC Gabapentin (Neurontin) 900 mg BID PO Last administered on 12/21/18 19:51; Start 12/10/18 at 21:00 Hydralazine HCl (Apresoline) 50 mg Q8HRS PO Last administered on 12/21/18 19:51 ; Start 12/10/18 at 22:00 Insulin Human Lispro (HumaLOG) 18 units TIDBFRMEAL SQ Last administered on 12/14 12:27; Start 12/11/18 at 07:30; Stop 12/15/18 at 16:44; Status DC Insulin Glargine (Lantus) 32 units QHS SQ Last administered on 12/19/18 20:56; Start 12/10/18 at 21:00; Stop 12/20/18 at 16:12; Status DC Non-Formulary Medication (Levalbuterol Hcl (Xopenex)) 1.25 mg QID IH ; Start at 17:00; Stop 12/10/18 at 17:28; Status DC Losartan Potassium (Cozaar) 100 mg DAILY PO ; Start 12/11/18 at 09:00; Stop at 09:00; Status DC Multivitamins/ Calcium (Thera-M Plus) 1 tab DAILY PO Last administered on 07:52; Start 12/11/18 at 09:00 Ondansetron HCl (Zofran Odt) 4 mg PRN Q8HRS PRN PO NAUSEA/VOMITING; Start 12/10 at 17:30 Pantoprazole Sodium (Protonix) 40 mg DAILYAC PO Last administered on 12/21/18 07:53; Start 12/11/18 at 07:30 Polyethylene Glycol (miraLAX) 17 gm DAILY PO Last administered on 12/21/18 07: 52; Start 12/11/18 at 09:00 Non-Formulary Medication (Ropinirole Hcl (Requip Xl)) 6 mg DAILY PO ; Start at 09:00; Stop 12/11/18 at 09:00; Status DC Non-Formulary Medication (Umeclidinium Brm/Vilanterol Tr (Anoro Ellipta 62.5-25 Mcg Inh)) 1 each 1puff IH ; Start 12/10/18 at 17:00; Stop 12/10/18 at 17:30; Status DC Multi-Ingredient Ointment (Analgesic [place]) 1 popeye PRN QID PRN TP MUSCLE PAIN Last administered on 12/21/18at 06:05; Start 12/10/18 at 17:00 Al Hydroxide/Mg Hydroxide (Mylanta Plus Xs) 15 ml PRN AFTMEALHC PRN PO DYSPEPSIA; Start 12/10/18 at 17:00 Magnesium Hydroxide (Milk Of Magnesia) 2,400 mg PRN QHS PRN PO CONSTIPATION; Start 12/10/18 at 17:00 Albuterol Sulfate (Ventolin) 2.5 mg RTQID NEB Last administered on 12/12/18at 09 :58; Start 12/10/18 at 20:00; Stop 12/12/18 at 11:08; Status DC Budesonide (Pulmicort) 0.5 mg RTBID NEB Last administered on 12/11/18at 22:00; Start 12/10/18 at 20:00; Stop 12/12/18 at 16:45; Status DC Ipratropium [place] (Atrovent) 0.25 mg [id number] NEB Last administered on at 10:04; Start 12/10/18 at 20:00; Stop 12/12/18 at 11:08; Status DC Furosemide (Lasix) 40 mg DAILY PO Last administered on 12/21/18at 07:53; Start at 09:00 Non-Formulary Medication (Ropinirole Hcl (Requip Xl)) 6 mg QHS PO ; Start at 21:00; Stop 12/12/18 at 18:00; Status DC Quetiapine Fumarate (SEROquel) 12.5 mg 0900,1700 PO Last administered on at 17:57; Start 12/12/18 at 09:00; Stop 12/14/18 at 18:43; Status DC Vitamin D (Vitamin D3) 50,000 unit WEEKLY PO Last administered on 12/18/18 08: 44; Start 12/11/18 at 19:30 Albuterol/ Ipratropium (Duoneb) 3 ml RTQID NEB Last administered on 12/21/18 20 :16; Start 12/12/18 at 12:00 Ropinirole HCl (Requip) 2 mg TID PO Last administered on 12/21/18 19:52; Start 12/12/18 at 21:00 Glucose (Insta-Glucose) 15 gm STK-MED ONCE .ROUTE Last administered on 16:56; Start 12/14/18 at 16:56; Stop 12/14/18 at 16:57; Status DC Dextrose 25 gm STK-MED ONCE IV ; Start 12/14/18 at 17:09; Stop 12/14/18 at 17:10 ; Status DC Glucose (Insta-Glucose) 15 gm STK-MED ONCE .ROUTE Last administered on 17:09; Start 12/14/18 at 17:09; Stop 12/14/18 at 17:10; Status DC Duloxetine HCl (Cymbalta) 60 mg DAILY PO Last administered on 12/15/18 08:30; Start 12/15/18 at 09:00; Stop 12/16/18 at 00:35; Status DC Olanzapine (ZyPREXA ZYDIS) 2.5 mg PRN Q2HR PRN PO ANXIETY / AGITATION; Start at 18:45 Albuterol/ Ipratropium (Duoneb) 3 ml 1X ONCE NEB Last administered on 01:22; Start 12/15/18 at 01:30; Stop 12/15/18 at 01:31; Status DC Insulin Human Lispro (HumaLOG) 14 units TIDBFRMEAL SQ Last administered on 17:36; Start 12/16/18 at 07:30 Buspirone HCl (Buspar) 10 mg DAILY@1400 PO Last administered on 12/17/18 13:30 ; Start 12/16/18 at 14:00; Stop 12/17/18 at 18:31; Status DC Diclofenac Sodium (Voltaren) 1 popeye TID TP Last administered on 12/21/18 19:53; Start 12/16/18 at 09:00; Stop 12/22/18 at 09:00 Apixaban (Eliquis) 5 mg BID PO Last administered on 12/21/18 19:51; Start at 21:00 Iohexol (Omnipaque 350 Mg/ml) 100 ml 1X ONCE IV Last administered on 12/16/18 18:45; Start 12/16/18 at 17:15; Stop 12/16/18 at 17:17; Status DC Buspirone HCl (Buspar) 15 mg TID PO Last administered on 12/21/18 19:51; Start 12/17/18 at 21:00 Trazodone HCl (Desyrel) 50 mg PRN QHS PRN PO INSOMNIA, MAY REPEAT X1 Last administered on 12/21/18 19:51; Start 12/17/18 at 18:45 Divalproex Sodium (Depakote Sprinkles) 125 mg BIDWMEALS PO Last administered on 12/21/18 17:29; Start 12/18/18 at 17:00 Insulin Glargine (Lantus) 32 units QHS SQ Last administered on 12/20/18 22:07; Start 12/20/18 at 16:12; Stop 12/21/18 at 21:00; Status DC Diclofenac Sodium (Voltaren) 1 popeye PRN TID PRN TP PAIN; Start 12/21/18 at 13:30 Insulin Glargine (Lantus) 24 units QHS SQ Last administered on 12/21/18 21:49; Start 12/21/18 at 20:00 Active Scripts Active Reported Zofran (Ondansetron Hcl) 4 Mg Tablet 4 Mg PO Q8HRS PRN Voltaren (Diclofenac Sodium) 100 Gm Gel..gram. 100 Gm TP TID Vitamin D (Cholecalciferol (Vitamin D3)) 1,000 Unit Capsule 1,000 Unit PO BID Tramadol Hcl (Tramadol HCl) 50 Mg Tablet 50 Mg PO PRN Q6HRS PRN Diltiazem 24Hr ER (Diltiazem HCl) 300 Mg Tab.er.24h 300 Mg PO DAILY [facility] Senior Tablet (Multivits-Min/Fa/Lycopene/Lut) 1 Each Tablet 1 Each PO DAILY Savella (Milnacipran Hcl) 50 Mg Tablet 100 Mg PO BID Requip Xl (Ropinirole Hcl) 6 Mg Tab.er.24h 6 Mg PO DAILY Protonix (Pantoprazole Sodium) 40 Mg Tablet.dr 40 Mg PO DAILY06 Miralax (Polyethylene Glycol 3350) 17 Gm Powd.pack 17 Gm PO DAILY Novolog (Insulin Aspart) 100 Unit/1 Ml Vial 18 Unit SQ TIDBFRMEAL NITROGLYCERIN SubLingual (Nitroglycerin) 0.4 Mg Tab.subl 0.4 Mg SL PRN Q5MIN PRN Mucinex Dm Er 600-30 Mg Tablet (Guaifenesin/Dextromethorphan) 1 Each Tab.er.12h 1 Each PO BID Levemir (Insulin Detemir) 100 Unit/1 Ml Vial 32 Unit SQ QHS Xopenex (Levalbuterol Hcl) 1.25 Mg/3 Ml Vial.neb 1.25 Mg IH QID Lasix (Furosemide) 80 Mg Tablet 60 Mg PO DAILY Ipratropium [place] 0.2 Mg/1 Ml Solution 0.2 Mg IH [id number] Hydralazine Hcl 50 Mg Tablet 50 Mg PO Q8HRS Gabapentin 600 Mg Tablet 900 Mg PO BID Cymbalta (Duloxetine Hcl) 30 Mg Capsule.dr 30 Mg PO DAILY Cozaar (Losartan Potassium) 100 Mg Tablet 100 Mg PO DAILY Coreg (Carvedilol) 25 Mg Tablet 12.5 Mg PO BIDWMEALS Clonidine Hcl 0.1 Mg Tablet 0.1 Mg PO BID Buspirone Hcl 15 Mg Tablet 15 Mg PO BID Eliquis (Apixaban) 5 Mg Tab.ds.pk 5 Mg PO BID Anoro Ellipta 62.5-25 Mcg Inh (Umeclidinium Brm/Vilanterol Tr) 1 Each Disk.w.dev 1 Each IH [id number] Albuterol Sulfate Neb Soln (Albuterol Sulfate) 2.5 Mg/3 Ml Vial.neb 2.5 Mg NEB Q2HR PRN I have reviewed the current psychotropics carefully including drug interactions. Risk benefit ratio favors no change other than as noted in my dictated progress note. Diagnosis: Problems: (1) Hypomagnesemia (2) Morbid obesity (3) Anemia (4) Renal insufficiency (5) Behavioral problem (6) Medical clearance for psychiatric admission (7) Anxiety disorder (8) Impulse control disorder (9) Major depressive disorder, recurrent episode SY,MAN M MD Dec 21, 2018 22:53
--- NOTE | 2018-12-22 00:49 | NUR ---
Nursing Note Pt lungs are coarse with crackles and wheezes throughout. States they have been this way, chest xray and cta chest on chart from a few days ago, VS WNL WBC also WNL.
[2018-12-22] MEDS: IPRATRPIUM/ALBUTEROL 0.5/2.5MG 3 ML NEBU. NEB SCH ×4 (05:02→20:00)
[2018-12-22 05:35] VITALS: BP 152/82
[2018-12-22] MEDS: INSULIN LISPRO 300 UNITS/3 ML INSULN.PEN. SQ SCH ×4 (07:30→16:30)
[2018-12-22] MEDS: PANTOPRAZOLE 40 MG TABLET. PO SCH (08:31)
[2018-12-22] MEDS: cloNIDine HCL 0.1 MG TABLET PO SCH ×2 (08:32→20:23)
[2018-12-22] MEDS: busPIRone 15 MG TABLET. PO SCH ×3 (08:32→20:23)
[2018-12-22] MEDS: CARVEDILOL 12.5 MG TABLET PO SCH ×2 (08:32→17:17)
[2018-12-22] MEDS: APIXABAN 5 MG TABLET. PO SCH ×2 (08:32→20:23)
[2018-12-22] MEDS: DIVALPROEX 125 MG CAP.SPRINK PO SCH ×2 (08:32→20:25)
[2018-12-22] MEDS: POLYETHYLENE GLYCOL 3350 17 GM PACKET. PO SCH (08:33)
[2018-12-22] MEDS: guaiFENesin DM 600/30MG 1 TAB TAB.ER.12H PO SCH ×2 (08:33→20:23)
[2018-12-22] MEDS: GABAPENTIN 300 MG CAPSULE. PO SCH ×2 (08:33→20:25)
[2018-12-22] MEDS: FUROSEMIDE 40 MG TABLET PO SCH (08:33)
[2018-12-22] MEDS: CHOLECALCIFEROL (VITAMIN D3) 1,000 UNIT TABLET PO SCH ×2 (08:33→20:23)
[2018-12-22] MEDS: MULTIVITAMIN with MINERAL TABLET. PO SCH (08:33)
[2018-12-22] MEDS: rOPINIRole 2 MG TABLET. PO SCH ×3 (08:33→20:22)
[2018-12-22] MEDS: MILNACIPRAN 50 MG TABLET PO SCH ×2 (08:35→20:26)
[2018-12-22] MEDS: DICLOFENAC SODIUM 1% TOPICAL GEL 100GM TUBE. TP SCH ×2 (09:00→10:02)
[2018-12-22] MEDS: oxyCODONE IR 5 MG TABLET PO PRN ×2 (10:01→21:07)
--- NOTE | 2018-12-22 12:56 | NUR ---
Behavior Intervention Response and Plan: BIRP Note: Behavior: Assumed Care of patient, patient located in Patient Room at shift change. Patient exhibited the following behavior Interactive, Calm, Compliant. Brief assessment on rounds of vital signs, medication needs, lab studies, and pain. Intervention: Patient assessed and the following interventions initiated safety checks 15 Minute Checks Cognitive Assessment , Head to toe Assessment , Medications. Response: After interactions and interventions patient responded in the following manner, Anxious , Attention Seeking ,Compliant. Continue to assess behaviors and condition will continue to monitor throughout the shift as needed. Patient educated on ADL's, and hand hygiene. Plan: Continue to monitor Master Treatment Plan for patient's progress toward short term goals of Decreased Agitation, Decreased Anxiety, fdc goals to return to previous living setting vs placement. Continue to assess patient for changes in above assessment. Monitor for medication needs, pain, and safety concerns. Hourly rounding performed to ensure safe environment.
[2018-12-22 16:27] VITALS: BP 131/82
[2018-12-22] MEDS: INSULIN GLARGINE 300 UNITS/3 ML INSULN.PEN. SQ SCH (20:28)
[2018-12-22] MEDS: traZODone 50 MG TABLET. PO PRN (21:07)
--- NOTE | 2018-12-22 22:41 | PDOC ---
Exam Note: [place] Note: Please also refer to the separate dictated note~for this date of service dictated separately.~Patient seen individually. Discussed the patient with Nursing staff reviewed the chart.~Reviewed interim history and current functioning. Reviewed vital signs,~Labs/ Radiology~and current medications noted below. Continue current treatment with the changes noted in the dictated addendum note Assessment: Vital Signs: Vital Signs Date Time Temp Pulse Resp B/P (MAP) Pulse Ox O2 Delivery O2 Flow Rate FiO2 12/22/18 21:07 18 94 12/22/18 20:23 80 131/82 12/22/18 20:18 Nasal Cannula 4.0 12/22/18 16:27 98.5 I&O Intake and Output 12/22/18 06:59 Intake Total 1140 ml Balance 1140 ml Intake Oral 1140 ml # Voids 1 Labs: Laboratory Tests Test 12/22/18 07:40 12/22/18 11:02 12/22/18 16:32 12/22/18 19:31 Glucose (Fingerstick) 133 mg/dL (70-99) H 224 mg/dL (70-99) H 118 mg/dL (70-99) H 182 mg/dL (70-99) H Current Medications: Meds: Current Medications Magnesium Oxide (Magnesium Oxide) 400 mg 1X ONCE PO Last administered on at 14:22; Start 12/10/18 at 14:30; Stop 12/10/18 at 14:32; Status DC Oxycodone HCl (Roxicodone) 5 mg PRN Q4HRS PRN PO PAIN Last administered on at 21:07; Start 12/10/18 at 16:30 Albuterol Sulfate (Ventolin) 2.5 mg PRN Q2HR PRN NEB SHORTNESS OF BREATH; Start 12/10/18 at 17:00; Stop 12/12/18 at 16:45; Status DC Clonidine HCl (Catapres) 0.1 mg BID PO Last administered on 12/22/18at 20:23; Start 12/10/18 at 21:00 Diclofenac Sodium (Voltaren) 100 popeye TID TP Last administered on 12/15/18at 19:51 ; Start 12/10/18 at 21:00; Stop 12/15/18 at 19:53; Status DC Guaifenesin (MUCINEX ER with DM) 1 tab BID PO Last administered on 12/22/18 20: 23; Start 12/10/18 at 21:00 Ipratropium [place] (Atrovent) 0.2 mg [id number] IH ; Start 12/10/18 at 17:00; Stop 12/10/18 at 17:29; Status DC Milnacipran HCl (Savella) 100 mg BID PO Last administered on 12/22/18 20:26; Start 12/10/18 at 21:00 Nitroglycerin (Nitrostat) 0.4 mg PRN Q5MIN PRN SL CHEST PAIN; Start 12/10/18 at 17:00 Tramadol HCl (Ultram) 50 mg PRN Q6HRS PRN PO PAIN Last administered on 06:04; Start 12/10/18 at 17:00 Buspirone HCl (Buspar) 15 mg BID PO Last administered on 12/17/18 07:42; Start 12/10/18 at 21:00; Stop 12/17/18 at 18:31; Status DC Carvedilol (Coreg) 12.5 mg BIDWMEALS PO Last administered on 12/22/18 17:17; Start 12/10/18 at 17:00 Vitamin D (Vitamin D3) 1,000 unit BID PO Last administered on 12/22/18 20:23; Start 12/10/18 at 21:00 Diltiazem HCl (Diltiazem 24hr Cd) 300 mg DAILY PO Last administered on 08:32; Start 12/11/18 at 09:00 Duloxetine HCl (Cymbalta) 30 mg DAILY PO Last administered on 12/14/18 08:04; Start 12/11/18 at 09:00; Stop 12/14/18 at 18:43; Status DC Furosemide (Lasix) 60 mg DAILY PO ; Start 12/11/18 at 09:00; Stop 12/11/18 at 09 :00; Status DC Gabapentin (Neurontin) 900 mg BID PO Last administered on 12/22/18 20:25; Start 12/10/18 at 21:00 Hydralazine HCl (Apresoline) 50 mg Q8HRS PO Last administered on 12/22/18 20:22 ; Start 12/10/18 at 22:00 Insulin Human Lispro (HumaLOG) 18 units TIDBFRMEAL SQ Last administered on 12/14at 12:27; Start 12/11/18 at 07:30; Stop 12/15/18 at 16:44; Status DC Insulin Glargine (Lantus) 32 units QHS SQ Last administered on 12/19/18at 20:56; Start 12/10/18 at 21:00; Stop 12/20/18 at 16:12; Status DC Non-Formulary Medication (Levalbuterol Hcl (Xopenex)) 1.25 mg QID IH ; Start at 17:00; Stop 12/10/18 at 17:28; Status DC Losartan Potassium (Cozaar) 100 mg DAILY PO ; Start 12/11/18 at 09:00; Stop at 09:00; Status DC Multivitamins/ Calcium (Thera-M Plus) 1 tab DAILY PO Last administered on at 08:33; Start 12/11/18 at 09:00 Ondansetron HCl (Zofran Odt) 4 mg PRN Q8HRS PRN PO NAUSEA/VOMITING; Start 12/10 at 17:30 Pantoprazole Sodium (Protonix) 40 mg DAILYAC PO Last administered on 12/22/18 08:31; Start 12/11/18 at 07:30 Polyethylene Glycol (miraLAX) 17 gm DAILY PO Last administered on 12/22/18 08: 33; Start 12/11/18 at 09:00 Non-Formulary Medication (Ropinirole Hcl (Requip Xl)) 6 mg DAILY PO ; Start at 09:00; Stop 12/11/18 at 09:00; Status DC Non-Formulary Medication (Umeclidinium Brm/Vilanterol Tr (Anoro Ellipta 62.5-25 Mcg Inh)) 1 each 1puff IH ; Start 12/10/18 at 17:00; Stop 12/10/18 at 17:30; Status DC Multi-Ingredient Ointment (Analgesic [place]) 1 popeye PRN QID PRN TP MUSCLE PAIN Last administered on 12/21/18at 06:05; Start 12/10/18 at 17:00 Al Hydroxide/Mg Hydroxide (Mylanta Plus Xs) 15 ml PRN AFTMEALHC PRN PO DYSPEPSIA; Start 12/10/18 at 17:00 Magnesium Hydroxide (Milk Of Magnesia) 2,400 mg PRN QHS PRN PO CONSTIPATION; Start 12/10/18 at 17:00 Albuterol Sulfate (Ventolin) 2.5 mg RTQID NEB Last administered on 12/12/18 09 :58; Start 12/10/18 at 20:00; Stop 12/12/18 at 11:08; Status DC Budesonide (Pulmicort) 0.5 mg RTBID NEB Last administered on 12/11/18at 22:00; Start 12/10/18 at 20:00; Stop 12/12/18 at 16:45; Status DC Ipratropium [place] (Atrovent) 0.25 mg [id number] NEB Last administered on 10:04; Start 12/10/18 at 20:00; Stop 12/12/18 at 11:08; Status DC Furosemide (Lasix) 40 mg DAILY PO Last administered on 12/22/18 08:33; Start at 09:00 Non-Formulary Medication (Ropinirole Hcl (Requip Xl)) 6 mg QHS PO ; Start at 21:00; Stop 12/12/18 at 18:00; Status DC Quetiapine Fumarate (SEROquel) 12.5 mg 0900,1700 PO Last administered on 17:57; Start 12/12/18 at 09:00; Stop 12/14/18 at 18:43; Status DC Vitamin D (Vitamin D3) 50,000 unit WEEKLY PO Last administered on 12/18/18 08: 44; Start 12/11/18 at 19:30 Albuterol/ Ipratropium (Duoneb) 3 ml RTQID NEB Last administered on 12/22/18 20 :00; Start 12/12/18 at 12:00 Ropinirole HCl (Requip) 2 mg TID PO Last administered on 12/22/18 20:22; Start 12/12/18 at 21:00 Glucose (Insta-Glucose) 15 gm STK-MED ONCE .ROUTE Last administered on 3/31/ 19at 16:56; Start 12/14/18 at 16:56; Stop 12/14/18 at 16:57; Status DC Dextrose 25 gm STK-MED ONCE IV ; Start 12/14/18 at 17:09; Stop 12/14/18 at 17:10 ; Status DC Glucose (Insta-Glucose) 15 gm STK-MED ONCE .ROUTE Last administered on at 17:09; Start 12/14/18 at 17:09; Stop 12/14/18 at 17:10; Status DC Duloxetine HCl (Cymbalta) 60 mg DAILY PO Last administered on 12/15/18at 08:30; Start 12/15/18 at 09:00; Stop 12/16/18 at 00:35; Status DC Olanzapine (ZyPREXA ZYDIS) 2.5 mg PRN Q2HR PRN PO ANXIETY / AGITATION; Start at 18:45 Albuterol/ Ipratropium (Duoneb) 3 ml 1X ONCE NEB Last administered on at 01:22; Start 12/15/18 at 01:30; Stop 12/15/18 at 01:31; Status DC Insulin Human Lispro (HumaLOG) 14 units TIDBFRMEAL SQ Last administered on at 11:34; Start 12/16/18 at 07:30 Buspirone HCl (Buspar) 10 mg DAILY@1400 PO Last administered on 12/17/18 13:30 ; Start 12/16/18 at 14:00; Stop 12/17/18 at 18:31; Status DC Diclofenac Sodium (Voltaren) 1 popeye TID TP Last administered on 12/21/18at 19:53; Start 12/16/18 at 09:00; Stop 12/22/18 at 09:00; Status DC Apixaban (Eliquis) 5 mg BID PO Last administered on 12/22/18at 20:23; Start at 21:00 Iohexol (Omnipaque 350 Mg/ml) 100 ml 1X ONCE IV Last administered on 12/16/18at 18:45; Start 12/16/18 at 17:15; Stop 12/16/18 at 17:17; Status DC Buspirone HCl (Buspar) 15 mg TID PO Last administered on 12/22/18 20:23; Start 12/17/18 at 21:00 Trazodone HCl (Desyrel) 50 mg PRN QHS PRN PO INSOMNIA, MAY REPEAT X1 Last administered on 12/22/18 21:07; Start 12/17/18 at 18:45 Divalproex Sodium (Depakote Sprinkles) 125 mg BIDWMEALS PO Last administered on 12/22/18 08:32; Start 12/18/18 at 17:00; Stop 12/22/18 at 17:07; Status DC Insulin Glargine (Lantus) 32 units QHS SQ Last administered on 12/20/18 22:07; Start 12/20/18 at 16:12; Stop 12/21/18 at 21:00; Status DC Diclofenac Sodium (Voltaren) 1 popeye PRN TID PRN TP PAIN; Start 12/21/18 at 13:30 Insulin Glargine (Lantus) 24 units QHS SQ Last administered on 12/22/18 20:28; Start 12/21/18 at 20:00 Divalproex Sodium (Depakote Sprinkles) 250 mg BID PO Last administered on 20:25; Start 12/22/18 at 21:00 Active Scripts Active Reported Zofran (Ondansetron Hcl) 4 Mg Tablet 4 Mg PO Q8HRS PRN Voltaren (Diclofenac Sodium) 100 Gm Gel..gram. 100 Gm TP TID Vitamin D (Cholecalciferol (Vitamin D3)) 1,000 Unit Capsule 1,000 Unit PO BID Tramadol Hcl (Tramadol HCl) 50 Mg Tablet 50 Mg PO PRN Q6HRS PRN Diltiazem 24Hr ER (Diltiazem HCl) 300 Mg Tab.er.24h 300 Mg PO DAILY [facility] Tablet (Multivits-Min/Fa/Lycopene/Lut) 1 Each Tablet 1 Each PO DAILY Savella (Milnacipran Hcl) 50 Mg Tablet 100 Mg PO BID Requip Xl (Ropinirole Hcl) 6 Mg Tab.er.24h 6 Mg PO DAILY Protonix (Pantoprazole Sodium) 40 Mg Tablet.dr 40 Mg PO DAILY06 Miralax (Polyethylene Glycol 3350) 17 Gm Powd.pack 17 Gm PO DAILY Novolog (Insulin Aspart) 100 Unit/1 Ml Vial 18 Unit SQ TIDBFRMEAL NITROGLYCERIN SubLingual (Nitroglycerin) 0.4 Mg Tab.subl 0.4 Mg SL PRN Q5MIN PRN Mucinex Dm Er 600-30 Mg Tablet (Guaifenesin/Dextromethorphan) 1 Each Tab.er.12h 1 Each PO BID Levemir (Insulin Detemir) 100 Unit/1 Ml Vial 32 Unit SQ QHS Xopenex (Levalbuterol Hcl) 1.25 Mg/3 Ml Vial.neb 1.25 Mg IH QID Lasix (Furosemide) 80 Mg Tablet 60 Mg PO DAILY Ipratropium [place] 0.2 Mg/1 Ml Solution 0.2 Mg IH [id number] Hydralazine Hcl 50 Mg Tablet 50 Mg PO Q8HRS Gabapentin 600 Mg Tablet 900 Mg PO BID Cymbalta (Duloxetine Hcl) 30 Mg Capsule.dr 30 Mg PO DAILY Cozaar (Losartan Potassium) 100 Mg Tablet 100 Mg PO DAILY Coreg (Carvedilol) 25 Mg Tablet 12.5 Mg PO BIDWMEALS Clonidine Hcl 0.1 Mg Tablet 0.1 Mg PO BID Buspirone Hcl 15 Mg Tablet 15 Mg PO BID Eliquis (Apixaban) 5 Mg Tab.ds.pk 5 Mg PO BID Anoro Ellipta 62.5-25 Mcg Inh (Umeclidinium Brm/Vilanterol Tr) 1 Each Disk.w.dev 1 Each IH 1PUFF Albuterol Sulfate Neb Soln (Albuterol Sulfate) 2.5 Mg/3 Ml Vial.neb 2.5 Mg NEB Q2HR PRN I have reviewed the current psychotropics carefully including drug interactions. Risk benefit ratio favors no change other than as noted in my dictated progress note. Diagnosis: Problems: (1) Hypomagnesemia (2) Morbid obesity (3) Anemia (4) Renal insufficiency (5) Behavioral problem (6) Medical clearance for psychiatric admission (7) Anxiety disorder (8) Impulse control disorder (9) Major depressive disorder, recurrent episode YULIA DAN MD Dec 22, 2018 22:41
--- NOTE | 2018-12-23 02:40 | NUR ---
Behavior Intervention Response and Plan: BIRP Note: Behavior: Assumed Care of patient, patient located in Patient Room at shift change. Patient exhibited the following behavior Calm, Appropriate, Compliant. Brief assessment on rounds of vital signs, medication needs, lab studies, and pain. Treatment plan problems . Intervention: Patient assessed and the following interventions initiated safety checks 15 Minute Checks Head to toe Assessment , Cognitive Assessment , Medications. Response: After interactions and interventions patient responded in the following manner, Medication Seeking , Withdrawn ,Somatic. Continue to assess behaviors and condition will continue to monitor throughout the shift as needed. Patient educated on ADL's, and hand hygiene. 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 Continue to assess patient for changes in above assessment. Monitor for medication needs, pain, and safety concerns. Hourly rounding performed to ensure safe environment.
[2018-12-23] MEDS: IPRATRPIUM/ALBUTEROL 0.5/2.5MG 3 ML NEBU. NEB SCH ×4 (05:40→20:17)
[2018-12-23 06:03] VITALS: BP 129/73
[2018-12-23] MEDS: DIVALPROEX 125 MG CAP.SPRINK PO SCH ×2 (07:25→19:22)
[2018-12-23] MEDS: APIXABAN 5 MG TABLET. PO SCH ×2 (07:25→19:23)
[2018-12-23] MEDS: busPIRone 15 MG TABLET. PO SCH ×3 (07:26→19:22)
[2018-12-23] MEDS: MULTIVITAMIN with MINERAL TABLET. PO SCH (07:26)
[2018-12-23] MEDS: rOPINIRole 2 MG TABLET. PO SCH ×3 (07:26→19:23)
[2018-12-23] MEDS: CHOLECALCIFEROL (VITAMIN D3) 1,000 UNIT TABLET PO SCH ×2 (07:26→19:23)
[2018-12-23] MEDS: FUROSEMIDE 40 MG TABLET PO SCH (07:26)
[2018-12-23] MEDS: PANTOPRAZOLE 40 MG TABLET. PO SCH (07:26)
[2018-12-23] MEDS: CARVEDILOL 12.5 MG TABLET PO SCH ×2 (07:27→16:41)
[2018-12-23] MEDS: cloNIDine HCL 0.1 MG TABLET PO SCH ×2 (07:27→19:22)
[2018-12-23] MEDS: POLYETHYLENE GLYCOL 3350 17 GM PACKET. PO SCH (07:28)
[2018-12-23] MEDS: guaiFENesin DM 600/30MG 1 TAB TAB.ER.12H PO SCH ×2 (08:17→19:23)
[2018-12-23] MEDS: MILNACIPRAN 50 MG TABLET PO SCH ×2 (08:17→19:23)
[2018-12-23] MEDS: INSULIN LISPRO 300 UNITS/3 ML INSULN.PEN. SQ SCH ×3 (08:17→17:54)
[2018-12-23] MEDS: GABAPENTIN 300 MG CAPSULE. PO SCH ×2 (08:17→19:25)
--- NOTE | 2018-12-23 08:18 | RAD ---
EXAM: Chest, single view. HISTORY: Cough. Congestion. COMPARISON: 12/16/2018 FINDINGS: A frontal view of the chest is obtained. There is diffuse interstitial infiltrate. There is linear opacity within the right mid thorax likely due to atelectasis or fluid along the right minor fissure. There is cardiomegaly and evidence of prior CABG. No pleural effusion or pneumothorax is seen. There is decreased left subacromial space likely due to a chronic rotator cuff tear. IMPRESSION: 1. Diffuse interstitial infiltrate and linear atelectasis or trace fluid along the right pleural fissure. 2. Cardiomegaly. Electronically signed by: Belem Xiong MD (12/23/2018 8:15 AM) [id number]
--- NOTE | 2018-12-23 09:13 | PN ---
DATE: 12/20/2018 PSYCHIATRIC PROGRESS NOTE This late entry 12/20/2018 covers elements not covered in my initial note. SUBJECTIVE: I met with the patient in the evening. Overall, the patient remains somewhat anxious, restless, noted by nursing staff to be "attention seeking." Nevertheless, she is somewhat less anxious. REVIEW OF SYSTEMS: Positive for pedal edema, impaired ambulation, shortness of breath on O2 supplements. No CV, GI, , ENT system symptoms on review. She is in a wheelchair. MENTAL STATUS EXAM: Oriented to herself and situation. Speech is coherent, rapid at times. Abstraction fair, computation impaired, language function intact. Mood and affect still somewhat anxious, labile. LABORATORY DATA: Reviewed. IMPRESSION: Unchanged from initial note. PLAN: No change from initial note. Depakote is being adjusted to reach therapeutic level. Cymbalta was discontinued. She remains on Savella, BuSpar, gabapentin along with trazodone p.r.n. Adjust further as clinically indicated. YULIA DAN MD DR: HEATHER/kika JOB#: [id number] / [id number]
--- NOTE | 2018-12-23 09:15 | PN ---
DATE: 12/21/2018 PSYCHIATRIC PROGRESS NOTE This late entry 12/21/2018, covers elements not covered in my initial note. SUBJECTIVE: I met with the patient in the evening. The patient slept 5 hours previous night. She remains somewhat anxious, restless at times, is in a wheelchair, 1 person assist transfer. REVIEW OF SYSTEMS: Shortness of breath, on O2 supplements, 3 liters. Impaired ambulation. Complains of pedal edema. No CV, , eye system symptoms on review. MENTAL STATUS EXAM: The patient is oriented to herself and situation. Speech is coherent, less pressured. Abstraction fair, computation impaired, language function intact, attention span short. Mood and affect remain somewhat anxious, less so than before. LABORATORY DATA: Reviewed. IMPRESSION: Unchanged from initial note. PLAN: No change from initial note, but we may adjust the Depakote gradually to reach therapeutic level. MAN Yuridia DAN MD DR: HEATHER/kika JOB#: [id number] / [id number]
[2018-12-23] MEDS: oxyCODONE IR 5 MG TABLET PO PRN ×2 (09:43→22:47)
[2018-12-23] MEDS: METHYL SALICYLATE/MENTHOL TOPICAL OINTMENT 29GM TUBE. TP PRN (09:46)
--- NOTE | 2018-12-23 16:00 | NUR ---
ZAHEER had been in contact with Staci at [facility], who reports that pt was denied her further stay from 12/21 and on. Staci reports that they psychiatrist can do an appeal or a peer to peer if he would like and would need to call . ZAHEER informed Staci that SW received a call earlier from a unit support representative to initiate the peer to peer process right after lunch. Staci is not sure who that would have been, but reports that either way, the number given to complete the peer to peer would be available.
[2018-12-23 16:12] VITALS: BP 154/84
--- NOTE | 2018-12-23 16:25 | NUR ---
ZAHEER contacted Rivas at [facility] to let him know that pt was denied by insurance and would need to discharge tomorrow. Rivas will prepare things and call ZAHEER in the AM as he does not have the transport book and knew that they were "tinkering" on the van earlier in the day. ZAHEER will wait to hear about transport time and in the meantime, will contact pt dtr.
[2018-12-23] MEDS ORDERED: traZODone 100 MG TABLET. PO PRN (16:45)
--- NOTE | 2018-12-23 17:00 | NUR ---
ZAHEER contacted pt dtr, Brittany, to discuss insurance denial and needing to discharge pt tomorrow back to [facility]. ZAHEER informed Brittany that pt has been doing well, but sometimes just needs the redirection for how she talks to people and having patience when she makes requests from nursing. Brittany reports that she has talked to her mother and explained that she has to stop her behaviors and put trust in the team that they know what they are doing. Pt dtr questioned if pt was restarted on the Seroquel and ZAHEER explained that pt is remaining on the Depakote in which she gets TID. ZAHEER will contact pt dtr in the AM with transport time, after [facility] has confirmed that.
--- NOTE | 2018-12-23 17:15 | NUR ---
[facility] Social Work Discharge Planning Form Patient Name TRICIA CHEEK Admit Date: 12/10/18 DISCHARGE PLAN Discharge Destination: [facility] Care Assessment: Completed prior to admission Level II Assessment: N/A Transportation: [facility] to set up transport and will contact in the morning with a more specific time. Special Instructions/Notes: Please fax over all medication lists and discharge orders to [facility] at the fax number listed below. DISCHARGE TO FACILITY Facility: [facility] Address: [address], [place] [address] Contact Name: Rivas Bronson, Admissions: Contact Name: Please ask for the nurse caring for pt to give report: PCP: Dr. Aj Sepulveda ; he sees pt at the facility.
--- NOTE | 2018-12-23 19:11 | NUR ---
Pt has been calm, cooperative, and compliant throughout shift. Pt only asked for oxycodone once this shift. Pt is less demanding than when she first arrived and can hold a conversation that does not pertain to her demands. Pt is pleasant and interactive. Pt's CXR showed atelectasis. MD notified and MD noted that d/t her lack of symptoms, pt is able to be discharged tomorrow as planned.
[2018-12-23] MEDS: INSULIN GLARGINE 300 UNITS/3 ML INSULN.PEN. SQ SCH (19:51)
--- NOTE | 2018-12-23 20:38 | PN ---
DATE: 12/22/2018 PSYCHIATRIC PROGRESS NOTE This late entry 12/22/2018 covers elements not covered in my initial note. SUBJECTIVE: I met with the patient in the evening. The patient slept 4-1/2 hours previous night. She had a bad cough. Chest x-ray is being repeated. We will defer to Dr. Diaz. She is somewhat obsessive, anxious regarding her medications. REVIEW OF SYSTEMS: Shortness of breath on 3 liters oxygen, impaired ambulation, in wheelchair. Pedal edema. No CV, , GI system symptoms on review. MENTAL STATUS EXAM: Reasonably oriented. Speech coherent, a little pressured. Abstraction fair, computation impaired, language function intact. No active suicidal ideation. Still somewhat suspicious, but not overtly psychotic. LABORATORY DATA: Reviewed. Valproic acid level is subtherapeutic. We will increase the Depakote from 125 twice a day to 250 twice a day. Check CBC, CMP, valproic acid level in 3 days. Rest unchanged. IMPRESSION: Unchanged from initial note. MAN Yuridia DAN MD DR: HEATHER/kika JOB#: [id number] / [id number]
--- NOTE | 2018-12-23 22:05 | NUR ---
Nursing note: Assumed care of pt in the day room where she was sitting at the table drinking tea. She was pleasant, compliant, and interactive. She was compliant taking her meds whole 1-2 at a time w/thickened liquid. No c/o pain.
--- NOTE | 2018-12-23 22:32 | PDOC ---
Exam Note: Iban Note: Please also refer to the separate dictated note~for this date of service dictated separately.~Patient seen individually. Discussed the patient with Nursing staff reviewed the chart.~Reviewed interim history and current functioning. Reviewed vital signs,~Labs/ Radiology~and current medications noted below. Continue current treatment with the changes noted in the dictated addendum note Assessment: Vital Signs: Vital Signs Date Time Temp Pulse Resp B/P (MAP) Pulse Ox O2 Delivery O2 Flow Rate FiO2 12/23/18 20:18 95 Nasal Cannula 3.0 12/23/18 19:24 80 154/84 12/23/18 16:12 98.2 21 I&O Intake and Output 12/23/18 06:59 Intake Total 720 ml Balance 720 ml Intake Oral 720 ml # Bowel Movements 1 Labs: Laboratory Tests Test 12/23/18 07:43 12/23/18 11:30 12/23/18 16:57 12/23/18 19:16 Glucose (Fingerstick) 124 mg/dL (70-99) H 165 mg/dL (70-99) H 107 mg/dL (70-99) H 156 mg/dL (70-99) H Current Medications: Meds: Current Medications Magnesium Oxide (Magnesium Oxide) 400 mg 1X ONCE PO Last administered on at 14:22; Start 12/10/18 at 14:30; Stop 12/10/18 at 14:32; Status DC Oxycodone HCl (Roxicodone) 5 mg PRN Q4HRS PRN PO PAIN Last administered on at 09:43; Start 12/10/18 at 16:30 Albuterol Sulfate (Ventolin) 2.5 mg PRN Q2HR PRN NEB SHORTNESS OF BREATH; Start 12/10/18 at 17:00; Stop 12/12/18 at 16:45; Status DC Clonidine HCl (Catapres) 0.1 mg BID PO Last administered on 12/23/18at 19:22; Start 12/10/18 at 21:00 Diclofenac Sodium (Voltaren) 100 popeye TID TP Last administered on 12/15/18at 19:51 ; Start 12/10/18 at 21:00; Stop 12/15/18 at 19:53; Status DC Guaifenesin (MUCINEX ER with DM) 1 tab BID PO Last administered on 12/23/18 19: 23; Start 12/10/18 at 21:00 Ipratropium [place] (Atrovent) 0.2 mg [id number] IH ; Start 12/10/18 at 17:00; Stop 12/10/18 at 17:29; Status DC Milnacipran HCl (Savella) 100 mg BID PO Last administered on 12/23/18 19:23; Start 12/10/18 at 21:00 Nitroglycerin (Nitrostat) 0.4 mg PRN Q5MIN PRN SL CHEST PAIN; Start 12/10/18 at 17:00 Tramadol HCl (Ultram) 50 mg PRN Q6HRS PRN PO PAIN Last administered on 06:04; Start 12/10/18 at 17:00 Buspirone HCl (Buspar) 15 mg BID PO Last administered on 12/17/18 07:42; Start 12/10/18 at 21:00; Stop 12/17/18 at 18:31; Status DC Carvedilol (Coreg) 12.5 mg BIDWMEALS PO Last administered on 12/23/18 16:41; Start 12/10/18 at 17:00 Vitamin D (Vitamin D3) 1,000 unit BID PO Last administered on 12/23/18 19:23; Start 12/10/18 at 21:00 Diltiazem HCl (Diltiazem 24hr Cd) 300 mg DAILY PO Last administered on 07:25; Start 12/11/18 at 09:00 Duloxetine HCl (Cymbalta) 30 mg DAILY PO Last administered on 12/14/18 08:04; Start 12/11/18 at 09:00; Stop 12/14/18 at 18:43; Status DC Furosemide (Lasix) 60 mg DAILY PO ; Start 12/11/18 at 09:00; Stop 12/11/18 at 09 :00; Status DC Gabapentin (Neurontin) 900 mg BID PO Last administered on 12/23/18 19:25; Start 12/10/18 at 21:00 Hydralazine HCl (Apresoline) 50 mg Q8HRS PO Last administered on 12/23/18 19:24 ; Start 12/10/18 at 22:00 Insulin Human Lispro (HumaLOG) 18 units TIDBFRMEAL SQ Last administered on 12/14at 12:27; Start 12/11/18 at 07:30; Stop 12/15/18 at 16:44; Status DC Insulin Glargine (Lantus) 32 units QHS SQ Last administered on 12/19/18at 20:56; Start 12/10/18 at 21:00; Stop 12/20/18 at 16:12; Status DC Non-Formulary Medication (Levalbuterol Hcl (Xopenex)) 1.25 mg QID IH ; Start at 17:00; Stop 12/10/18 at 17:28; Status DC Losartan Potassium (Cozaar) 100 mg DAILY PO ; Start 12/11/18 at 09:00; Stop at 09:00; Status DC Multivitamins/ Calcium (Thera-M Plus) 1 tab DAILY PO Last administered on at 07:26; Start 12/11/18 at 09:00 Ondansetron HCl (Zofran Odt) 4 mg PRN Q8HRS PRN PO NAUSEA/VOMITING; Start 12/10 at 17:30 Pantoprazole Sodium (Protonix) 40 mg DAILYAC PO Last administered on 12/23/18at 07:26; Start 12/11/18 at 07:30 Polyethylene Glycol (miraLAX) 17 gm DAILY PO Last administered on 12/23/18at 07: 28; Start 12/11/18 at 09:00 Non-Formulary Medication (Ropinirole Hcl (Requip Xl)) 6 mg DAILY PO ; Start at 09:00; Stop 12/11/18 at 09:00; Status DC Non-Formulary Medication (Umeclidinium Brm/Vilanterol Tr (Anoro Ellipta 62.5-25 Mcg Inh)) 1 each 1puff IH ; Start 12/10/18 at 17:00; Stop 12/10/18 at 17:30; Status DC Multi-Ingredient Ointment (Analgesic Hickman) 1 popeye PRN QID PRN TP MUSCLE PAIN Last administered on 12/23/18at 09:46; Start 12/10/18 at 17:00 Al Hydroxide/Mg Hydroxide (Mylanta Plus Xs) 15 ml PRN AFTMEALHC PRN PO DYSPEPSIA; Start 12/10/18 at 17:00 Magnesium Hydroxide (Milk Of Magnesia) 2,400 mg PRN QHS PRN PO CONSTIPATION; Start 12/10/18 at 17:00 Albuterol Sulfate (Ventolin) 2.5 mg RTQID NEB Last administered on 12/12/18 09 :58; Start 12/10/18 at 20:00; Stop 12/12/18 at 11:08; Status DC Budesonide (Pulmicort) 0.5 mg RTBID NEB Last administered on 12/11/18at 22:00; Start 12/10/18 at 20:00; Stop 12/12/18 at 16:45; Status DC Ipratropium [place] (Atrovent) 0.25 mg [id number] NEB Last administered on at 10:04; Start 12/10/18 at 20:00; Stop 12/12/18 at 11:08; Status DC Furosemide (Lasix) 40 mg DAILY PO Last administered on 12/23/18 07:26; Start at 09:00 Non-Formulary Medication (Ropinirole Hcl (Requip Xl)) 6 mg QHS PO ; Start at 21:00; Stop 12/12/18 at 18:00; Status DC Quetiapine Fumarate (SEROquel) 12.5 mg 0900,1700 PO Last administered on 17:57; Start 12/12/18 at 09:00; Stop 12/14/18 at 18:43; Status DC Vitamin D (Vitamin D3) 50,000 unit WEEKLY PO Last administered on 12/18/18 08: 44; Start 12/11/18 at 19:30 Albuterol/ Ipratropium (Duoneb) 3 ml RTQID NEB Last administered on 12/23/18 20 :17; Start 12/12/18 at 12:00 Ropinirole HCl (Requip) 2 mg TID PO Last administered on 12/23/18 19:23; Start 12/12/18 at 21:00 Glucose (Insta-Glucose) 15 gm STK-MED ONCE .ROUTE Last administered on 16:56; Start 12/14/18 at 16:56; Stop 12/14/18 at 16:57; Status DC Dextrose 25 gm STK-MED ONCE IV ; Start 12/14/18 at 17:09; Stop 12/14/18 at 17:10 ; Status DC Glucose (Insta-Glucose) 15 gm STK-MED ONCE .ROUTE Last administered on at 17:09; Start 12/14/18 at 17:09; Stop 12/14/18 at 17:10; Status DC Duloxetine HCl (Cymbalta) 60 mg DAILY PO Last administered on 12/15/18at 08:30; Start 12/15/18 at 09:00; Stop 12/16/18 at 00:35; Status DC Olanzapine (ZyPREXA ZYDIS) 2.5 mg PRN Q2HR PRN PO ANXIETY / AGITATION; Start at 18:45 Albuterol/ Ipratropium (Duoneb) 3 ml 1X ONCE NEB Last administered on 01:22; Start 12/15/18 at 01:30; Stop 12/15/18 at 01:31; Status DC Insulin Human Lispro (HumaLOG) 14 units TIDBFRMEAL SQ Last administered on 17:54; Start 12/16/18 at 07:30 Buspirone HCl (Buspar) 10 mg DAILY@1400 PO Last administered on 12/17/18 13:30 ; Start 12/16/18 at 14:00; Stop 12/17/18 at 18:31; Status DC Diclofenac Sodium (Voltaren) 1 popeye TID TP Last administered on 12/21/18 19:53; Start 12/16/18 at 09:00; Stop 12/22/18 at 09:00; Status DC Apixaban (Eliquis) 5 mg BID PO Last administered on 12/23/18 19:23; Start at 21:00 Iohexol (Omnipaque 350 Mg/ml) 100 ml 1X ONCE IV Last administered on 12/16/18 18:45; Start 12/16/18 at 17:15; Stop 12/16/18 at 17:17; Status DC Buspirone HCl (Buspar) 15 mg TID PO Last administered on 12/23/18 19:22; Start 12/17/18 at 21:00 Trazodone HCl (Desyrel) 50 mg PRN QHS PRN PO INSOMNIA, MAY REPEAT X1 Last administered on 12/22/18at 21:07; Start 12/17/18 at 18:45; Stop 12/23/18 at 16:38; Status DC Divalproex Sodium (Depakote Sprinkles) 125 mg BIDWMEALS PO Last administered on 12/22/18at 08:32; Start 12/18/18 at 17:00; Stop 12/22/18 at 17:07; Status DC Insulin Glargine (Lantus) 32 units QHS SQ Last administered on 12/20/18at 22:07; Start 12/20/18 at 16:12; Stop 12/21/18 at 21:00; Status DC Diclofenac Sodium (Voltaren) 1 popeye PRN TID PRN TP PAIN; Start 12/21/18 at 13:30 Insulin Glargine (Lantus) 24 units QHS SQ Last administered on 12/23/18at 19:51; Start 12/21/18 at 20:00 Divalproex Sodium (Depakote Sprinkles) 250 mg BID PO Last administered on at 19:22; Start 12/22/18 at 21:00 Trazodone HCl (Desyrel) 100 mg PRN QHS PRN PO INSOMNIA, MAY REPEAT X1; Start at 16:45 Active Scripts Active Reported Zofran (Ondansetron Hcl) 4 Mg Tablet 4 Mg PO Q8HRS PRN Voltaren (Diclofenac Sodium) 100 Gm Gel..gram. 100 Gm TP TID Vitamin D (Cholecalciferol (Vitamin D3)) 1,000 Unit Capsule 1,000 Unit PO BID Tramadol Hcl (Tramadol HCl) 50 Mg Tablet 50 Mg PO PRN Q6HRS PRN Diltiazem 24Hr ER (Diltiazem HCl) 300 Mg Tab.er.24h 300 Mg PO DAILY Sentry Senior Tablet (Multivits-Min/Fa/Lycopene/Lut) 1 Each Tablet 1 Each PO DAILY Savella (Milnacipran Hcl) 50 Mg Tablet 100 Mg PO BID Requip Xl (Ropinirole Hcl) 6 Mg Tab.er.24h 6 Mg PO DAILY Protonix (Pantoprazole Sodium) 40 Mg Tablet.dr 40 Mg PO DAILY06 Miralax (Polyethylene Glycol 3350) 17 Gm Powd.pack 17 Gm PO DAILY Novolog (Insulin Aspart) 100 Unit/1 Ml Vial 18 Unit SQ TIDBFRMEAL NITROGLYCERIN SubLingual (Nitroglycerin) 0.4 Mg Tab.subl 0.4 Mg SL PRN Q5MIN PRN Mucinex Dm Er 600-30 Mg Tablet (Guaifenesin/Dextromethorphan) 1 Each Tab.er.12h 1 Each PO BID Levemir (Insulin Detemir) 100 Unit/1 Ml Vial 32 Unit SQ QHS Xopenex (Levalbuterol Hcl) 1.25 Mg/3 Ml Vial.neb 1.25 Mg IH QID Lasix (Furosemide) 80 Mg Tablet 60 Mg PO DAILY Ipratropium [place]insted 0.2 Mg/1 Ml Solution 0.2 Mg IH [id number] Hydralazine Hcl 50 Mg Tablet 50 Mg PO Q8HRS Gabapentin 600 Mg Tablet 900 Mg PO BID Cymbalta (Duloxetine Hcl) 30 Mg Capsule.dr 30 Mg PO DAILY Cozaar (Losartan Potassium) 100 Mg Tablet 100 Mg PO DAILY Coreg (Carvedilol) 25 Mg Tablet 12.5 Mg PO BIDWMEALS Clonidine Hcl 0.1 Mg Tablet 0.1 Mg PO BID Buspirone Hcl 15 Mg Tablet 15 Mg PO BID Eliquis (Apixaban) 5 Mg Tab.ds.pk 5 Mg PO BID Anoro Ellipta 62.5-25 Mcg Inh (Umeclidinium Brm/Vilanterol Tr) 1 Each Disk.w.dev 1 Each IH 1PUFF Albuterol Sulfate Neb Soln (Albuterol Sulfate) 2.5 Mg/3 Ml Vial.neb 2.5 Mg NEB Q2HR PRN I have reviewed the current psychotropics carefully including drug interactions. Risk benefit ratio favors no change other than as noted in my dictated progress note. Diagnosis: Problems: (1) Hypomagnesemia (2) Morbid obesity (3) Anemia (4) Renal insufficiency (5) Behavioral problem (6) Medical clearance for psychiatric admission (7) Anxiety disorder (8) Impulse control disorder (9) Major depressive disorder, recurrent episode YULIA DAN MD Dec 23, 2018 22:32
[2018-12-23] MEDS ORDERED: IPRA3AMP29 NEB (23:46)
[2018-12-23] MEDS ORDERED: FURO40TA4 PO (23:56)
[2018-12-24] MEDS ORDERED: CHOL500021 PO
[2018-12-24] MEDS ORDERED: DIVA125C2 PO (00:02)
[2018-12-24] MEDS ORDERED: MAGN2400 PO (00:03)
[2018-12-24] MEDS ORDERED: MAG30ORA2 PO (00:03)
[2018-12-24] MEDS ORDERED: OLAN5TAB5 PO (00:04)
[2018-12-24] MEDS ORDERED: METH29OI TP (00:04)
[2018-12-24 05:57] VITALS: BP 115/69
[2018-12-24] MEDS: IPRATRPIUM/ALBUTEROL 0.5/2.5MG 3 ML NEBU. NEB SCH ×2 (06:06→10:28)
[2018-12-24] MEDS: DIVALPROEX 125 MG CAP.SPRINK PO SCH (08:22)
[2018-12-24] MEDS: MULTIVITAMIN with MINERAL TABLET. PO SCH (08:22)
[2018-12-24] MEDS: busPIRone 15 MG TABLET. PO SCH (08:22)
[2018-12-24] MEDS: PANTOPRAZOLE 40 MG TABLET. PO SCH (08:23)
[2018-12-24] MEDS: guaiFENesin DM 600/30MG 1 TAB TAB.ER.12H PO SCH (08:23)
[2018-12-24] MEDS: FUROSEMIDE 40 MG TABLET PO SCH (08:23)
[2018-12-24] MEDS: CHOLECALCIFEROL (VITAMIN D3) 1,000 UNIT TABLET PO SCH (08:23)
[2018-12-24] MEDS: POLYETHYLENE GLYCOL 3350 17 GM PACKET. PO SCH (08:23)
[2018-12-24] MEDS: rOPINIRole 2 MG TABLET. PO SCH (08:23)
[2018-12-24] MEDS: CARVEDILOL 12.5 MG TABLET PO SCH (08:23)
[2018-12-24] MEDS: APIXABAN 5 MG TABLET. PO SCH (08:23)
[2018-12-24] MEDS: INSULIN LISPRO 300 UNITS/3 ML INSULN.PEN. SQ SCH ×2 (08:25→12:09)
[2018-12-24] MEDS: GABAPENTIN 300 MG CAPSULE. PO SCH (08:27)
[2018-12-24 08:28] VITALS: BP 115/69
[2018-12-24] MEDS: MILNACIPRAN 50 MG TABLET PO SCH (08:28)
[2018-12-24] MEDS: cloNIDine HCL 0.1 MG TABLET PO SCH (08:28)
--- NOTE | 2018-12-24 10:25 | NUR ---
Behavior Intervention Response and Plan: BIRP Note: Behavior: Assumed Care of patient, patient located in Day Room at shift change. Patient exhibited the following behavior Disorganized, Compulsive, Demanding. Brief assessment on rounds of vital signs, medication needs, lab studies, and pain. Treatment plan problems 1 & 2. Intervention: Patient assessed and the following interventions initiated safety checks 15 Minute Checks Cognitive Assessment , Head to toe Assessment , Medications. Response: After interactions and interventions patient responded in the following manner, Calm , Compulsive ,Compliant. Continue to assess behaviors and condition will continue to monitor throughout the shift as needed. Patient educated on ADL's, and hand hygiene. Plan: Continue to monitor Master Treatment Plan for patient's progress toward short term goals of Medication Compliance, No harm To self/ others, shelter goals to return to previous living setting vs placement. Continue to assess patient for changes in above assessment. Monitor for medication needs, pain, and safety concerns. Hourly rounding performed to ensure safe environment.
[2018-12-24] MEDS ORDERED: GUAI-108 PO (11:03)
[2018-12-24] MEDS ORDERED: HYDR-2869 PO (11:04)
[2018-12-24] MEDS ORDERED: OXYC5TAB4 PO (11:05)
[2018-12-24] MEDS ORDERED: TRAM50TA PO (11:07)
[2018-12-24] MEDS ORDERED: ROPI2TAB4 PO (11:07)
[2018-12-24] MEDS ORDERED: TRAZ-86 PO (11:08)
--- NOTE | 2018-12-24 12:30 | NUR ---
Transition Record was faxed to follow-up provider with the following elements: Reason for admission, procedures, tests, principal diagnosis, pending studies, patient instructions, 08/04 contact information for unit, phone number to obtain pending test results, plan for follow-up care, physician follow-up, advanced directive information, and medication list with dose, duration and instructions. This information was included in the following documents: History and physical, lab results, study results, progress notes, social work planning form, DC instruction form, patient visit summary, and medication reconciliation form. Date & time record faxed: [id number] 24 December 2018 Record faxed to: Morena Gibbs Record discussed with/ report given to: ALEXANDRIA Goodman at [facility]
--- NOTE | 2018-12-24 22:42 | PDOC ---
Exam Note: [place] Note: Please also refer to the separate dictated note~for this date of service dictated separately.~Patient seen individually. Discussed the patient with Nursing staff reviewed the chart.~Reviewed interim history and current functioning. Reviewed vital signs,~Labs/ Radiology~and current medications noted below. Continue current treatment with the changes noted in the dictated addendum note Assessment: Vital Signs: Vital Signs Date Time Temp Pulse Resp B/P (MAP) Pulse Ox O2 Delivery O2 Flow Rate FiO2 12/24/18 10:29 92 Nasal Cannula 3.0 12/24/18 08:28 97 115/69 12/24/18 05:57 97.8 24 I&O Intake and Output 12/24/18 07:00 Intake Total 1320 ml Balance 1320 ml Intake Oral 1320 ml # Bowel Movements 1 Labs: Laboratory Tests Test 12/24/18 07:34 12/24/18 11:23 Glucose (Fingerstick) 140 mg/dL (70-99) H 200 mg/dL (70-99) H Current Medications: Meds: Current Medications Magnesium Oxide (Magnesium Oxide) 400 mg 1X ONCE PO Last administered on at 14:22; Start 12/10/18 at 14:30; Stop 12/10/18 at 14:32; Status DC Oxycodone HCl (Roxicodone) 5 mg PRN Q4HRS PRN PO PAIN Last administered on at 22:47; Start 12/10/18 at 16:30; Stop 12/24/18 at 15:08; Status DC Albuterol Sulfate (Ventolin) 2.5 mg PRN Q2HR PRN NEB SHORTNESS OF BREATH; Start 12/10/18 at 17:00; Stop 12/12/18 at 16:45; Status DC Clonidine HCl (Catapres) 0.1 mg BID PO Last administered on 12/24/18at 08:28; Start 12/10/18 at 21:00; Stop 12/24/18 at 15:08; Status DC Diclofenac Sodium (Voltaren) 100 popeye TID TP Last administered on 12/15/18at 19:51 ; Start 12/10/18 at 21:00; Stop 12/15/18 at 19:53; Status DC Guaifenesin (MUCINEX ER with DM) 1 tab BID PO Last administered on 4/10/19at 08 :23; Start 12/10/18 at 21:00; Stop 12/24/18 at 15:08; Status DC Ipratropium Hydro (Atrovent) 0.2 mg [id number] IH ; Start 12/10/18 at 17:00; Stop 12/10/18 at 17:29; Status DC Milnacipran HCl (Savella) 100 mg BID PO Last administered on 12/24/18 08:28; Start 12/10/18 at 21:00; Stop 12/24/18 at 15:08; Status DC Nitroglycerin (Nitrostat) 0.4 mg PRN Q5MIN PRN SL CHEST PAIN; Start 12/10/18 at 17:00; Stop 12/24/18 at 15:08; Status DC Tramadol HCl (Ultram) 50 mg PRN Q6HRS PRN PO PAIN Last administered on 06:04; Start 12/10/18 at 17:00; Stop 12/24/18 at 15:08; Status DC Buspirone HCl (Buspar) 15 mg BID PO Last administered on 12/17/18at 07:42; Start 12/10/18 at 21:00; Stop 12/17/18 at 18:31; Status DC Carvedilol (Coreg) 12.5 mg BIDWMEALS PO Last administered on 12/24/18 08:23; Start 12/10/18 at 17:00; Stop 12/24/18 at 15:08; Status DC Vitamin D (Vitamin D3) 1,000 unit BID PO Last administered on 12/24/18 08:23; Start 12/10/18 at 21:00; Stop 12/24/18 at 15:08; Status DC Diltiazem HCl (Diltiazem 24hr Cd) 300 mg DAILY PO Last administered on 08:23; Start 12/11/18 at 09:00; Stop 12/24/18 at 15:08; Status DC Duloxetine HCl (Cymbalta) 30 mg DAILY PO Last administered on 12/14/18at 08:04; Start 12/11/18 at 09:00; Stop 12/14/18 at 18:43; Status DC Furosemide (Lasix) 60 mg DAILY PO ; Start 12/11/18 at 09:00; Stop 12/11/18 at 09 :00; Status DC Gabapentin (Neurontin) 900 mg BID PO Last administered on 12/24/18 08:27; Start 12/10/18 at 21:00; Stop 12/24/18 at 15:08; Status DC Hydralazine HCl (Apresoline) 50 mg Q8HRS PO Last administered on 12/24/18at 05: 42; Start 12/10/18 at 22:00; Stop 12/24/18 at 15:08; Status DC Insulin Human Lispro (HumaLOG) 18 units TIDBFRMEAL SQ Last administered on 12/14at 12:27; Start 12/11/18 at 07:30; Stop 12/15/18 at 16:44; Status DC Insulin Glargine (Lantus) 32 units QHS SQ Last administered on 12/19/18at 20:56; Start 12/10/18 at 21:00; Stop 12/20/18 at 16:12; Status DC Non-Formulary Medication (Levalbuterol Hcl (Xopenex)) 1.25 mg QID IH ; Start at 17:00; Stop 12/10/18 at 17:28; Status DC Losartan Potassium (Cozaar) 100 mg DAILY PO ; Start 12/11/18 at 09:00; Stop at 09:00; Status DC Multivitamins/ Calcium (Thera-M Plus) 1 tab DAILY PO Last administered on at 08:22; Start 12/11/18 at 09:00; Stop 12/24/18 at 15:08; Status DC Ondansetron HCl (Zofran Odt) 4 mg PRN Q8HRS PRN PO NAUSEA/VOMITING; Start 12/10 at 17:30; Stop 12/24/18 at 15:08; Status DC Pantoprazole Sodium (Protonix) 40 mg DAILYAC PO Last administered on 12/24/18at 08:23; Start 12/11/18 at 07:30; Stop 12/24/18 at 15:08; Status DC Polyethylene Glycol (miraLAX) 17 gm DAILY PO Last administered on 12/24/18at 08: 23; Start 12/11/18 at 09:00; Stop 12/24/18 at 15:08; Status DC Non-Formulary Medication (Ropinirole Hcl (Requip Xl)) 6 mg DAILY PO ; Start at 09:00; Stop 12/11/18 at 09:00; Status DC Non-Formulary Medication (Umeclidinium Brm/Vilanterol Tr (Anoro Ellipta 62.5-25 Mcg Inh)) 1 each 1puff IH ; Start 12/10/18 at 17:00; Stop 12/10/18 at 17:30; Status DC Multi-Ingredient Ointment (Analgesic [place]) 1 popeye PRN QID PRN TP MUSCLE PAIN Last administered on 12/23/18at 09:46; Start 12/10/18 at 17:00; Stop 12/24/18 at 15:08; Status DC Al Hydroxide/Mg Hydroxide (Mylanta Plus Xs) 15 ml PRN AFTMEALHC PRN PO DYSPEPSIA; Start 12/10/18 at 17:00; Stop 12/24/18 at 15:08; Status DC Magnesium Hydroxide (Milk Of Magnesia) 2,400 mg PRN QHS PRN PO CONSTIPATION; Start 12/10/18 at 17:00; Stop 12/24/18 at 15:08; Status DC Albuterol Sulfate (Ventolin) 2.5 mg RTQID NEB Last administered on 12/12/18at 09 :58; Start 12/10/18 at 20:00; Stop 12/12/18 at 11:08; Status DC Budesonide (Pulmicort) 0.5 mg RTBID NEB Last administered on 12/11/18at 22:00; Start 12/10/18 at 20:00; Stop 12/12/18 at 16:45; Status DC Ipratropium Hydro (Atrovent) 0.25 mg [id number] NEB Last administered on at 10:04; Start 12/10/18 at 20:00; Stop 12/12/18 at 11:08; Status DC Furosemide (Lasix) 40 mg DAILY PO Last administered on 12/24/18at 08:23; Start 12/11/18 at 09:00; Stop 12/24/18 at 15:08; Status DC Non-Formulary Medication (Ropinirole Hcl (Requip Xl)) 6 mg QHS PO ; Start at 21:00; Stop 12/12/18 at 18:00; Status DC Quetiapine Fumarate (SEROquel) 12.5 mg 0900,1700 PO Last administered on at 17:57; Start 12/12/18 at 09:00; Stop 12/14/18 at 18:43; Status DC Vitamin D (Vitamin D3) 50,000 unit WEEKLY PO Last administered on 12/18/18 08: 44; Start 12/11/18 at 19:30; Stop 12/24/18 at 15:08; Status DC Albuterol/ Ipratropium (Duoneb) 3 ml RTQID NEB Last administered on 12/24/18at 10:28; Start 12/12/18 at 12:00; Stop 12/24/18 at 15:08; Status DC Ropinirole HCl (Requip) 2 mg TID PO Last administered on 12/24/18at 08:23; Start 12/12/18 at 21:00; Stop 12/24/18 at 15:08; Status DC Glucose (Insta-Glucose) 15 gm STK-MED ONCE .ROUTE Last administered on at 16:56; Start 12/14/18 at 16:56; Stop 12/14/18 at 16:57; Status DC Dextrose 25 gm STK-MED ONCE IV ; Start 12/14/18 at 17:09; Stop 12/14/18 at 17:10 ; Status DC Glucose (Insta-Glucose) 15 gm STK-MED ONCE .ROUTE Last administered on at 17:09; Start 12/14/18 at 17:09; Stop 12/14/18 at 17:10; Status DC Duloxetine HCl (Cymbalta) 60 mg DAILY PO Last administered on 12/15/18at 08:30; Start 12/15/18 at 09:00; Stop 12/16/18 at 00:35; Status DC Olanzapine (ZyPREXA ZYDIS) 2.5 mg PRN Q2HR PRN PO ANXIETY / AGITATION; Start at 18:45; Stop 12/24/18 at 15:08; Status DC Albuterol/ Ipratropium (Duoneb) 3 ml 1X ONCE NEB Last administered on 01:22; Start 12/15/18 at 01:30; Stop 12/15/18 at 01:31; Status DC Insulin Human Lispro (HumaLOG) 14 units TIDBFRMEAL SQ Last administered on 12/24 12:09; Start 12/16/18 at 07:30; Stop 12/24/18 at 15:08; Status DC Buspirone HCl (Buspar) 10 mg DAILY@1400 PO Last administered on 12/17/18 13:30 ; Start 12/16/18 at 14:00; Stop 12/17/18 at 18:31; Status DC Diclofenac Sodium (Voltaren) 1 popeye TID TP Last administered on 12/21/18 19:53; Start 12/16/18 at 09:00; Stop 12/22/18 at 09:00; Status DC Apixaban (Eliquis) 5 mg BID PO Last administered on 12/24/18 08:23; Start 12/16 at 21:00; Stop 12/24/18 at 15:08; Status DC Iohexol (Omnipaque 350 Mg/ml) 100 ml 1X ONCE IV Last administered on 12/16/18 18:45; Start 12/16/18 at 17:15; Stop 12/16/18 at 17:17; Status DC Buspirone HCl (Buspar) 15 mg TID PO Last administered on 12/24/18 08:22; Start 12/17/18 at 21:00; Stop 12/24/18 at 15:08; Status DC Trazodone HCl (Desyrel) 50 mg PRN QHS PRN PO INSOMNIA, MAY REPEAT X1 Last administered on 12/22/18 21:07; Start 12/17/18 at 18:45; Stop 12/23/18 at 16:38; Status DC Divalproex Sodium (Depakote Sprinkles) 125 mg BIDWMEALS PO Last administered on 12/22/18 08:32; Start 12/18/18 at 17:00; Stop 12/22/18 at 17:07; Status DC Insulin Glargine (Lantus) 32 units QHS SQ Last administered on 12/20/18 22:07; Start 12/20/18 at 16:12; Stop 12/21/18 at 21:00; Status DC Diclofenac Sodium (Voltaren) 1 popeye PRN TID PRN TP PAIN; Start 12/21/18 at 13:30 ; Stop 12/24/18 at 15:08; Status DC Insulin Glargine (Lantus) 24 units QHS SQ Last administered on 12/23/18at 19:51; Start 12/21/18 at 20:00; Stop 12/24/18 at 15:08; Status DC Divalproex Sodium (Depakote Sprinkles) 250 mg BID PO Last administered on at 08:22; Start 12/22/18 at 21:00; Stop 12/24/18 at 15:08; Status DC Trazodone HCl (Desyrel) 100 mg PRN QHS PRN PO INSOMNIA, MAY REPEAT X1; Start at 16:45; Stop 12/24/18 at 15:08; Status DC Active Scripts Active Reported Trazodone Hcl 100 Mg Tablet 100 Mg PO PRN QHS PRN Tramadol Hcl (Tramadol HCl) 50 Mg Tablet 50 Mg PO PRN Q6HRS PRN Ropinirole Hcl 2 Mg Tablet 2 Mg PO TID Oxycodone Hcl Immed.release (Oxycodone Hcl) 5 Mg Tablet 5 Mg PO PRN Q4HRS PRN Hydralazine Hcl 50 Mg Tablet 1 Tab PO Q8HRS Mucinex Dm Er 600-30 Mg Tablet (Guaifenesin/Dextromethorphan) 1 Each Tab.er.12h 1 Tab PO BID Zyprexa Zydis (Olanzapine) 5 Mg Tab.rapdis 2.5 Mg PO PRN Q2HR PRN Maximum Daily dose 10mg in 24 hours Analgesic [place] (Methyl Salicylate/Menthol) 28 Gm Oint...g. 1 Applic TP PRN QID PRN Milk Of Magnesia (Magnesium Hydroxide) 2,400 Mg/10 Ml Oral.susp 2,400 Mg PO PRN QHS PRN Mag-Al Plus Xs Suspension (Mag Hydrox/Al Hydrox/Simeth) 30 Ml Oral.susp 15 Ml PO PRN AFTMEALHC PRN Depakote Sprinkle (Divalproex Sodium) 125 Mg Cap.sprink 250 Mg PO BID D3-50 (Cholecalciferol (Vitamin D3)) 50,000 Unit Capsule 50,000 Unit PO WEEKLY Furosemide 40 Mg Tablet 40 Mg PO DAILY Duoneb 0.5-3(2.5) Mg/3 Ml (Albuterol/Ipratropium) 3 Ml Ampul.neb 3 Ml NEB QID Zofran (Ondansetron Hcl) 4 Mg Tablet 4 Mg PO Q8HRS PRN Voltaren (Diclofenac Sodium) 100 Gm Gel..gram. 100 Gm TP PRN TID PRN Vitamin D (Cholecalciferol (Vitamin D3)) 1,000 Unit Capsule 1,000 Unit PO BID Diltiazem 24Hr ER (Diltiazem HCl) 300 Mg Tab.er.24h 300 Mg PO DAILY [employer] [facility] Tablet (Multivits-Min/Fa/Lycopene/Lut) 1 Each Tablet 1 Each PO DAILY Savella (Milnacipran Hcl) 50 Mg Tablet 100 Mg PO BID Protonix (Pantoprazole Sodium) 40 Mg Tablet.dr 40 Mg PO DAILY06 Miralax (Polyethylene Glycol 3350) 17 Gm Powd.pack 17 Gm PO DAILY Novolog (Insulin Aspart) 100 Unit/1 Ml Vial 14 Unit SQ TIDBFRMEAL NITROGLYCERIN SubLingual (Nitroglycerin) 0.4 Mg Tab.subl 0.4 Mg SL PRN Q5MIN PRN Levemir (Insulin Detemir) 100 Unit/1 Ml Vial 24 Unit SQ QHS Gabapentin 600 Mg Tablet 900 Mg PO BID Coreg (Carvedilol) 25 Mg Tablet 12.5 Mg PO BIDWMEALS Clonidine Hcl 0.1 Mg Tablet 0.1 Mg PO BID Buspirone Hcl 15 Mg Tablet 15 Mg PO TID Eliquis (Apixaban) 5 Mg Tab.ds.pk 5 Mg PO BID I have reviewed the current psychotropics carefully including drug interactions. Risk benefit ratio favors no change other than as noted in my dictated progress note. Diagnosis: Problems: (1) Anxiety disorder (2) Impulse control disorder (3) Major depressive disorder, recurrent episode YULIA DAN MD Dec 24, 2018 22:42
--- NOTE | 2018-12-24 23:11 | PN ---
DATE: 12/23/2018 This late entry for 12/23/2018 covers elements not covered in my initial note. SUBJECTIVE: I met with the patient in the evening. The patient slept 3-1/4 hours previous night. She has been less irritable. Does complain of leg pain, noted to be needy per nursing report. REVIEW OF SYSTEMS: Shortness of breath on O2 supplements, impaired ambulation, in wheelchair. No CV, , pulmonary, eye system symptoms on review other than above. MENTAL STATUS EXAM: Oriented to herself and situation. Speech is coherent, abstraction fair, computation impaired, language function intact, attention span short. Mood and affect less anxious and less labile. LABORATORY DATA: Reviewed. IMPRESSION: Unchanged from initial note. PLAN: No change from initial note and discharge back to group home on 12/24/2018. MAN Yuridia DAN MD DR: HEATHER/kika JOB#: [id number] / [id number]
--- NOTE | 2018-12-25 13:32 | DS ---
DATE OF DISCHARGE: 12/24/2018 DISCHARGE SUMMARY/PSYCHIATRIC PROGRESS NOTE This late entry 12/24/2018, covers elements not covered in my initial note. REASON FOR ADMISSION: Please refer to the admission history for details. Briefly, the patient is a 63-year-old female, referred to us from [facility] by her primary care physician, on account of increasing paranoia, hitting herself, screaming and cursing at staff, paranoid about medications, noncompliant. She is paranoid that people were stealing from her angry, tearful, labile. She had failed outpatient psychiatric interventions. SIGNIFICANT FINDINGS AND CLINICAL COURSE: Following admission, the patient was seen daily individually by myself from a psychiatric standpoint, medical followup with Dr. Diaz. She was quite anxious, labile, hyperverbal, irritable and paranoid at admission. Additional history and close observations were suggestive of an additional diagnosis of cyclothymia versus bipolar disorder, unspecified. Adjustments were made in her psychotropics and she seemed to respond to a combination of BuSpar 15 mg t.i.d. and she was on Neurontin 900 mg b.i.d., Depakote 125 mg at 9:00 a.m. and 5:00 p.m., Zyprexa p.r.n., Savella 100 mg b.i.d. that she was taking prior to admission, trazodone at bedtime p.r.n. Prior to discharge, Depakote was increased to 250 b.i.d. with repeat labs level to be done on 12/25/2018 since the level on the lower dosage was quite subtherapeutic at approximately 6. Gradually, a mood appeared to improve. She was calmer, less anxious, less labile, less tearful with improved mood vacillation. Prior to discharge, no suicidal or homicidal ideation was noted. 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 Rest unchanged from admission. DISCHARGE MEDICATIONS: Please refer to the MRAD. DISCHARGE INSTRUCTIONS: Outpatient psychiatric and medical followup at the sn[facility]. YULIA DAN MD DR: HEATHER/kika JOB#: [id number] / [id number]
== END 2018-12-24 13:00 | DRG 885 ==
LOC: ER 12:39 → GEROPSY 14:58
PROVIDERS: ADMIT Psychiatry & Neurology Psychiatry; ATTEND Psychiatry & Neurology Psychiatry
DX: F33.41 Major depressive disorder, recurrent, in partial remission (principal); Z68.43 Body mass index [BMI] 50.0-59.9, adult; J96.11 Chronic respiratory failure with hypoxia; J96.12 Chronic respiratory failure with hypercapnia; F63.9 Impulse disorder, unspecified; F41.9 Anxiety disorder, unspecified; Z02.89 Encounter for other administrative examinations; N28.9 Disorder of kidney and ureter, unspecified; D64.9 Anemia, unspecified; E66.01 Morbid (severe) obesity due to excess calories; E83.42 Hypomagnesemia; M19.90 Unspecified osteoarthritis, unspecified site; K21.9 Gastro-esophageal reflux disease without esophagitis; J44.9 Chronic obstructive pulmonary disease, unspecified; I50.9 Heart failure, unspecified; I25.10 Atherosclerotic heart disease of native coronary artery without angina pectoris; I11.0 Hypertensive heart disease with heart failure; E78.5 Hyperlipidemia, unspecified; M79.7 Fibromyalgia; E11.21 Type 2 diabetes mellitus with diabetic nephropathy; E56.9 Vitamin deficiency, unspecified; F22 Delusional disorders; G25.81 Restless legs syndrome; G47.33 Obstructive sleep apnea (adult) (pediatric); G89.4 Chronic pain syndrome; H91.90 Unspecified hearing loss, unspecified ear; I48.0 Paroxysmal atrial fibrillation; Z95.1 Presence of aortocoronary bypass graft; Z79.01 Long term (current) use of anticoagulants; Z86.718 Personal history of other venous thrombosis and embolism; Z99.81 Dependence on supplemental oxygen; Z91.030 Bee allergy status; Z91.040 Latex allergy status; Z88.7 Allergy status to serum and vaccine; Z88.8 Allergy status to other drugs, medicaments and biological substances; Z91.048 Other nonmedicinal substance allergy status; Z79.899 Other long term (current) drug therapy; Z91.11 Patient's noncompliance with dietary regimen; Z91.19 Patient's noncompliance with other medical treatment and regimen; Z87.891 Personal history of nicotine dependence; Z90.49 Acquired absence of other specified parts of digestive tract; Z85.828 Personal history of other malignant neoplasm of skin
CPT/HCPCS: 36415; 71045; 71275; 80048; 80053; 80061; 80164; 81001; 82306; 82947; 83036; 83540; 83550; 83735; 84436; 84443; 84480; 85025; 86592; 93005; 93970; 94640; J1815; J7613; J7620; J7626; J7644; Q9967; 97110; 97530; 99285-25